=== PATIENT | female | born 1955 | race Caucasian/White ===

== ENCOUNTER 2016-08-12 02:42 | Emergency (ER) | payer MEDICAID ==
[~2016-08-12] VITALS: Ht 170.2 cm; Wt 86.2 kg
--- NOTE | 2016-08-12 04:27 | NUR ---
Patient discharged to home in stable conditon. Written and verbal after care instructions given. Patient verbalizes understanding of instructions. Walked out of ER with steady gait with no distress noted
[2016-08-12 04:44] VITALS: BP 155/90
== END 2016-08-12 04:45 | disposition home or self-care (01) ==
LOC: ER 02:45
DX: B88.9 Infestation, unspecified (principal); R21 Rash and other nonspecific skin eruption; E11.9 Type 2 diabetes mellitus without complications; F31.9 Bipolar disorder, unspecified; Z59.0 Homelessness; Z88.8 Allergy status to other drugs, medicaments and biological substances
CPT/HCPCS: 99282; A4663

== ENCOUNTER 2016-08-26 02:35 | Emergency (ER) | payer MEDICAID ==
[~2016-08-26] VITALS: Ht 167.6 cm; Wt 63.5 kg
[2016-08-26 03:14] LABS: *BILIRUBIN,URIN NEGATIVE (NEGATIVE); *BLOOD, URINE Trace-intact (NEGATIVE); *CLARITY,URINE CLEAR (CLEAR); *COLOR,URINE YELLOW (YELLOW); *KETONES,URINE NEGATIVE (NEGATIVE); *PROTEIN,URINE NEGATIVE (NEGATIVE); *UROBILINOGEN,URINE 0.2 E.U./dl (NORMAL); LEUKOCYTE ESTERASE ,URINE NEGATIVE (NEGATIVE); NITRITE, URINE NEGATIVE (NEGATIVE)
[2016-08-26 03:16] LABS: UGLUCOSE 3+ (NEGATIVE)
[2016-08-26 03:19] LABS: BACTERIA,URINE FEW /HPF (NONE SEEN); RBC,URINE 0-3 /HPF (0-3); SQUAMOUS EPITHELIAL CELL,UR FEW /HPF (NONE SEEN); WBC,URINE 0-3 /HPF (0-3)
--- NOTE | 2016-08-26 03:50 | NUR ---
Pt to room, pt c/o urinary frequency. Pt seen by . IV started, labs drawn and sent. Fluid bolus infusing freely to gravity. Pt resting in position of comfort for self. No obvious signs of distress at this time.
[2016-08-26] MEDS ORDERED: METFORMIN HCL 500 MG TABLET PO ONE (04:00)
[2016-08-26] MEDS ORDERED: IV NORMAL SALINE 1000 ML BAG IV ONE (04:00)
[2016-08-26] MEDS ORDERED: METFORMIN HCL 500 MG TABLET ONE (04:14)
[2016-08-26 04:22] LABS: BASOPHILS % (AUTO) 0.7 % (0.0-2.0); EOSINOPHILS # (AUTO) 0.2 K/uL (0.0-0.7); EOSINOPHILS % (AUTO) 3.7 % (0.0-7.0); HEMATOCRIT 44.4 % (37-47); HEMOGLOBIN 15.5 G/DL (12.0-16.0); LYMPHOCYTES # (AUTO) 1.8 K/UL (0.8-4.8); LYMPHOCYTES % (AUTO) 31.5 % (20.5-51.5); MEAN CORPUSCULAR HEMOGLOBIN 31.9 UUG (27.0-31.0); MEAN CORPUSCULAR HGB CONC 35 g/dL (32.0-37.0); MEAN CORPUSCULAR VOLUME 91.6 FL (81.0-99.0); MONOCYTES # (AUTO) 0.5 K/UL (0.1-1.30); MONOCYTES % (AUTO) 8.8 % (0.0-11.0); NEUTROPHILS # (AUTO) 3.2 K/UL (1.8-8.9); NEUTROPHILS % (AUTO) 55.3 % (38.5-71.5); PLATELET COUNT (AUTO) 195 K/UL (150-450); RED BLOOD CELL COUNT(AUTO) 4.85 MIL/UL (4.2-5.4); WHITE BLOOD COUNT (AUTO) 5.7 K/UL (4.0-11.2)
--- NOTE | 2016-08-26 04:30 | NUR ---
pt ambulated to br with steady gait. No complaints at this time. Fluid bolus cont infusing freely to gravity.
[2016-08-26 04:35] LABS: BILIRUBIN,DIRECT 0.1 mg/dL (0.0-0.2); BILIRUBIN,TOTAL 0.4 mg/dL (0.2-1.0); POTASSIUM 3.9 mmol/L (3.5-5.1); TOTAL PROTEIN, SERUM 7.7 g/dL (6.4-8.2)
--- NOTE | 2016-08-26 06:30 | NUR ---
Fluid bolus completed. Pt stable for discharge per MD. IV dc'd, catheter intact, drsg applied. No problems noted to site. Pt given ACI. Pt verbalized understanding of dc instructions. Pt ambulated out of er with steady gait.
[2016-08-26 07:15] VITALS: BP 158/88
== END 2016-08-26 06:30 | disposition home or self-care (01) ==
LOC: ER 02:38
DX: E11.9 Type 2 diabetes mellitus without complications (principal); F29 Unspecified psychosis not due to a substance or known physiological condition; F31.9 Bipolar disorder, unspecified; F10.20 Alcohol dependence, uncomplicated; Z59.0 Homelessness; Z88.8 Allergy status to other drugs, medicaments and biological substances
CPT/HCPCS: 36415; 80048; 80076; 81001; 82962 ×2; 85025; 96360; 96361; 99285; A4663; J7030 ×2

== ENCOUNTER 2017-01-20 03:17 | Emergency (ER) | payer MEDICAID ==
[~2017-01-20] VITALS: Ht 167.6 cm; Wt 81.6 kg
--- NOTE | 2017-01-20 03:30 | NUR ---
Patient walked into ER c/o right lower leg pain. Patient was seen at [facility] for same complaint several weeks ago
== END 2017-01-20 03:48 | disposition home or self-care (01) ==
LOC: ER 03:21
DX: M25.562 Pain in left knee (principal); Z59.0 Homelessness; W01.0XXA Fall on same level from slipping, tripping and stumbling without subsequent striking against object, initial encounter; Y93.89 Activity, other specified; Y92.9 Unspecified place or not applicable; Y99.9 Unspecified external cause status
CPT/HCPCS: A4663

== ENCOUNTER 2017-01-25 14:21 | Emergency (ER) | payer MEDICAID ==
[~2017-01-25] VITALS: Ht 162.6 cm; Wt 75.7 kg
--- NOTE | 2017-01-25 14:40 | NUR ---
Dr Díaz at the bedside for eval and exam.
[2017-01-25] MEDS ORDERED: IBUPROFEN 400 MG TABLET PO ONE (15:00)
[2017-01-25] MEDS ORDERED: ACETAMINOPHEN ES 500 MG TABLET PO ONE (15:00)
[2017-01-25] MEDS ORDERED: IBUPROFEN 400 MG TABLET ONE (15:06)
[2017-01-25] MEDS ORDERED: ACETAMINOPHEN ES 500 MG TABLET ONE (15:06)
[2017-01-25 15:55] VITALS: BP 155/80
--- NOTE | 2017-01-25 15:56 | NUR ---
Patient given written and verbal discharge instructions. Patient verbalizes understanding of instructions. Patient is ambulatory with steady gait. Refuses offer of alf placement. Patient given list of available shelters in surrounding area.
== END 2017-01-25 15:59 | disposition home or self-care (01) ==
LOC: ER 14:21
DX: M25.511 Pain in right shoulder (principal); F17.200 Nicotine dependence, unspecified, uncomplicated; E11.9 Type 2 diabetes mellitus without complications; Z59.0 Homelessness; Z88.8 Allergy status to other drugs, medicaments and biological substances
CPT/HCPCS: 73030; 73060; 99284; A4663

== ENCOUNTER 2017-02-16 02:56 | Emergency (ER) | payer MEDICAID ==
[~2017-02-16] VITALS: Ht 170.2 cm; Wt 81.6 kg
[2017-02-16] MEDS ORDERED: HYDROCODONE/APAP 5-325MG TABLET PO ONE (04:30)
[2017-02-16] MEDS ORDERED: HYDROCODONE/APAP 5-325MG TABLET ONE (04:37)
--- NOTE | 2017-02-16 04:55 | NUR ---
Radiology at bedside for US.
--- NOTE | 2017-02-16 05:28 | NUR ---
Patient discharged to home in stable conditon. Written and verbal after care instructions given. Patient verbalizes understanding of instructions.
== END 2017-02-16 05:30 | disposition home or self-care (01) ==
LOC: ER 02:58
DX: F29 Unspecified psychosis not due to a substance or known physiological condition (principal); M79.662 Pain in left lower leg; F32.9 Major depressive disorder, single episode, unspecified; F41.9 Anxiety disorder, unspecified; E11.9 Type 2 diabetes mellitus without complications; Z59.0 Homelessness; Z91.14 Patient's other noncompliance with medication regimen; F17.200 Nicotine dependence, unspecified, uncomplicated; Z88.8 Allergy status to other drugs, medicaments and biological substances
CPT/HCPCS: 93971; 99284; A4663

== ENCOUNTER 2017-03-01 16:08 | Emergency (ER) | payer MEDICAID ==
[~2017-03-01] VITALS: Ht 162.6 cm; Wt 68.0 kg
--- NOTE | 2017-03-01 16:33 | NUR ---
BIB "FRIEND". PT IS A 61 Y/O FEMALE. AMBULATORY WITH SLOW BUT STEADY GAIT. SPEAKING IN FULL SENTENCES. NAD NOTED. VSS. HERE FOR; RIGHT LOWER EXTREMITY PAIN S/P FALL X 1 MONTH AGO. PER "FRIEND" AT BEDSIDE. NO VISIAL DEFORMITY/DISCOLORATION ON THE RIGHT LOWER EXTREMIY/ SWELLING NOTED. WCTM PT AT THIS TIME. WAITING FOR MD TO PERFORM MSE.
[2017-03-01] MEDS ORDERED: HYDROCODONE/APAP 5-325MG TABLET PO ONE (18:00)
[2017-03-01] MEDS ORDERED: HYDROCODONE/APAP 5-325MG TABLET ONE (18:14)
--- NOTE | 2017-03-01 18:33 | NUR ---
Patient discharged to home in stable conditon. Written and verbal after care instructions given. Patient verbalizes understanding of instructions. Prescription provided per MD's order. No further question or concerns noted prior on leaving the ED. Pt accompanied by "friend" prior to d/c
[2017-03-01 18:34] VITALS: BP 119/88
== END 2017-03-01 18:35 | disposition home or self-care (01) ==
LOC: ER 16:11
DX: M17.0 Bilateral primary osteoarthritis of knee (principal); Z91.14 Patient's other noncompliance with medication regimen; E11.9 Type 2 diabetes mellitus without complications; F31.9 Bipolar disorder, unspecified; M85.80 Other specified disorders of bone density and structure, unspecified site; F41.9 Anxiety disorder, unspecified; Z59.0 Homelessness; F17.200 Nicotine dependence, unspecified, uncomplicated; Z88.8 Allergy status to other drugs, medicaments and biological substances
CPT/HCPCS: A4663

== ENCOUNTER 2017-03-07 02:32 | Emergency (ER) | payer MEDICAID ==
[~2017-03-07] VITALS: Ht 165.1 cm; Wt 77.1 kg
--- NOTE | 2017-03-07 03:04 | NUR ---
DR. CODY AT BEDSIDE FOR MSE.
[2017-03-07] MEDS ORDERED: IV NORMAL SALINE 1000 ML BAG IV ONE (03:15)
[2017-03-07 03:44] LABS: CREATININE 0.7 mg/dL (0.6-1.3); POTASSIUM 3.7 mmol/L (3.5-5.1)
--- NOTE | 2017-03-07 03:49 | NUR ---
Pt refusing IV. Dr Fowler notified.
[2017-03-07 03:57] LABS: BASOPHILS % (AUTO) 0.6 % (0.0-2.0); EOSINOPHILS # (AUTO) 0.2 K/uL (0.0-0.7); LYMPHOCYTES # (AUTO) 1.5 K/UL (0.8-4.8); MEAN CORPUSCULAR HEMOGLOBIN 29.9 UUG (27.0-31.0); MEAN CORPUSCULAR HGB CONC 33 g/dL (32.0-37.0); MEAN CORPUSCULAR VOLUME 89.8 FL (81.0-99.0); MONOCYTES # (AUTO) 0.5 K/UL (0.1-1.30); MONOCYTES % (AUTO) 9.1 % (0.0-11.0); NEUTROPHILS # (AUTO) 3.2 K/UL (1.8-8.9); NEUTROPHILS % (AUTO) 60.3 % (38.5-71.5); PLATELET COUNT (AUTO) 298 K/UL (150-450); RED BLOOD CELL COUNT(AUTO) 4.67 MIL/UL (4.2-5.4); WHITE BLOOD COUNT (AUTO) 5.4 K/UL (4.0-11.2)
[2017-03-07] MEDS ORDERED: IBUPROFEN 600 MG TABLET PO ONE (04:15)
--- NOTE | 2017-03-07 04:25 | NUR ---
Patient discharged to home in stable conditon. Written and verbal after care instructions given. Patient verbalizes understanding of instructions. PATIENT LEFT WITH STABLE GAIT.
[2017-03-07 04:26] VITALS: BP 145/98
== END 2017-03-07 04:27 | disposition home or self-care (01) ==
LOC: ER 02:36
DX: G89.29 Other chronic pain (principal); M79.604 Pain in right leg; M79.605 Pain in left leg; E11.65 Type 2 diabetes mellitus with hyperglycemia; Z59.0 Homelessness; Z91.14 Patient's other noncompliance with medication regimen; F17.200 Nicotine dependence, unspecified, uncomplicated
CPT/HCPCS: 36415; 80048; 82962; 85025; 99284; A4663; J7030

== ENCOUNTER 2017-03-13 07:19 | Emergency (ER) | payer MEDICAID ==
[~2017-03-13] VITALS: Ht 165.1 cm; Wt 77.1 kg
--- NOTE | 2017-03-13 07:27 | NUR ---
Attempted to triage pt, pt was not found in ER waiting room or outside ER.
--- NOTE | 2017-03-13 08:38 | NUR ---
patient was seen by MD for c/o generalized pain. Labs done. Urine sent to lab. patient refused CT scan, dr horne aware
[2017-03-13 08:57] LABS: *BILIRUBIN,URIN NEGATIVE (NEGATIVE); *BLOOD, URINE 2+ (NEGATIVE); *COLOR,URINE YELLOW (YELLOW); *KETONES,URINE TRACE (NEGATIVE); *PROTEIN,URINE NEGATIVE (NEGATIVE); *UROBILINOGEN,URINE 0.2 E.U./dl (NORMAL); BASOPHILS % (AUTO) 0.6 % (0.0-2.0); EOSINOPHILS # (AUTO) 0.2 K/uL (0.0-0.7); EOSINOPHILS % (AUTO) 2.5 % (0.0-7.0); HEMATOCRIT 43.5 % (31.2-41.9); LEUKOCYTE ESTERASE ,URINE TRACE (NEGATIVE); LYMPHOCYTES % (AUTO) 15.3 % (20.5-51.5); MEAN CORPUSCULAR HEMOGLOBIN 31.3 uug (24.7-32.8); MEAN CORPUSCULAR HGB CONC 35 g/dL (32.3-35.6); MEAN CORPUSCULAR VOLUME 90.4 fL (75.5-95.3); MONOCYTES # (AUTO) 0.4 K/uL (2.0-10.0); MONOCYTES % (AUTO) 6.4 % (0.0-11.0); NEUTROPHILS % (AUTO) 75.2 % (38.5-71.5); NITRITE, URINE NEGATIVE (NEGATIVE); PH,URINE 5.5 (5.0-8.0); PLATELET COUNT (AUTO) 255 K/uL (179-408); RED BLOOD CELL COUNT(AUTO) 4.81 MIL/uL (3.63-4.92); WHITE BLOOD COUNT (AUTO) 6.7 K/uL (3.8-11.8)
[2017-03-13 09:05] LABS: ALANINE AMINOTRANSFERASE 24 U/L (14-59); ALKALINE PHOSPHATASE 68 U/L (50-136); ASPARTATE AMINOTRANSFERASE 20 U/L (15-37); BILIRUBIN,DIRECT 0.2 mg/dL (0.0-0.2); BILIRUBIN,TOTAL 0.7 mg/dL (0.2-1.0); CARBON DIOXIDE 28 mmol/L (21-32); CHLORIDE 99 mmol/L (98-107); CREATININE 0.8 mg/dL (0.6-1.3); LIPASE 188 U/L (73-393); POTASSIUM 3.9 mmol/L (3.5-5.1); TOTAL PROTEIN, SERUM 8.2 g/dL (6.4-8.2); UREA NITROGEN, BLOOD 19 mg/dL (7-18)
[2017-03-13 09:06] LABS: ETHANOL < 3 MG/DL (0-0)
[2017-03-13 09:09] LABS: *AMPHETAMINE, URINE NEGATIVE (NEGATIVE); *BARBITURATE, URINE NEGATIVE (NEGATIVE); *CANNABINOID, URINE NEGATIVE (NEGATIVE); *COCCAINE, URINE NEGATIVE (NEGATIVE); *OPIATE, URINE NEGATIVE (NEGATIVE); *PHENCYCLIDINE SCREEN,URINE NEGATIVE (NEGATIVE)
[2017-03-13 09:19] LABS: UGLUCOSE 2+ (NEGATIVE)
[2017-03-13 09:21] LABS: BACTERIA,URINE MODERATE /HPF (NONE SEEN); MUCUS,URINE FEW /LPF (0-FEW); SQUAMOUS EPITHELIAL CELL,UR FEW /HPF (NONE SEEN)
[2017-03-13 09:22] LABS: *CLARITY,URINE CLOUDY (CLEAR)
[2017-03-13 09:27] LABS: GLUCOSE 340 mg/dL (74-106)
[2017-03-13 09:28] LABS: ACETAMINOPHEN < 2.0 ug/mL (10-30)
[2017-03-13] MEDS ORDERED: INSULIN REGULAR, HUMAN 1,000 UNITS/10 ML VIAL SUBCUT ONE (09:45)
--- NOTE | 2017-03-13 09:45 | NUR ---
Patient had some snacks and water.
[2017-03-13] MEDS ORDERED: INSULIN REGULAR, HUMAN 300 UNIT/3 ML VIAL ONE (10:00)
--- NOTE | 2017-03-13 10:29 | NUR ---
DC AND FOLLOW UP INSTRUCTIONS GIVEN AND EXPLAINED TO PATIENT WHO STATES SHE UNDERSTANDS ALL INSTRUCTIONS. PATIENT STATES SHE WILL "WALK HOME".
[2017-03-13 10:31] VITALS: BP 129/80
== END 2017-03-13 10:32 | disposition home or self-care (01) ==
LOC: ER 07:19
DX: R10.9 Unspecified abdominal pain (principal); E11.9 Type 2 diabetes mellitus without complications; Z59.0 Homelessness; F31.9 Bipolar disorder, unspecified; F41.9 Anxiety disorder, unspecified; F17.200 Nicotine dependence, unspecified, uncomplicated
CPT/HCPCS: 36415; 70030-TC; 80307; 83690; 85025; 85730; 93005; A4663; G0480; G0480-TC; J1815

== ENCOUNTER 2017-04-14 23:01 | Emergency (ER) | payer MEDICAID ==
[~2017-04-14] VITALS: Ht 172.7 cm; Wt 72.6 kg
[2017-04-15] MEDS ORDERED: KETOROLAC TROMETHAMINE 60 MG INJ IM ONE ×2 (02:30→02:43)
--- NOTE | 2017-04-15 03:13 | NUR ---
Patient discharged to home in stable conditon. Written and verbal after care instructions given. Patient verbalizes understanding of instructions.
== END 2017-04-15 03:14 | disposition home or self-care (01) ==
LOC: ER 23:07
DX: G89.29 Other chronic pain (principal); M25.511 Pain in right shoulder; M25.512 Pain in left shoulder; F17.200 Nicotine dependence, unspecified, uncomplicated; Z59.0 Homelessness; E11.9 Type 2 diabetes mellitus without complications; Z88.8 Allergy status to other drugs, medicaments and biological substances
CPT/HCPCS: 73020; A4663; J1885

== ENCOUNTER 2017-05-28 13:24 | Emergency (ER) | payer MEDICAID ==
[~2017-05-28] VITALS: Ht 167.6 cm; Wt 83.9 kg
[2017-05-28 13:59] LABS: *BLOOD, URINE Trace-intact (NEGATIVE); *CLARITY,URINE CLEAR (CLEAR); *COLOR,URINE YELLOW (YELLOW); *KETONES,URINE TRACE (NEGATIVE); *PROTEIN,URINE 2+ (NEGATIVE); *UROBILINOGEN,URINE 0.2 E.U./dl (NORMAL); LEUKOCYTE ESTERASE ,URINE 1+ (NEGATIVE); NITRITE, URINE NEGATIVE (NEGATIVE)
[2017-05-28 14:05] LABS: *BILIRUBIN,URIN 1+ (NEGATIVE); UGLUCOSE 2+ (NEGATIVE)
[2017-05-28 14:10] LABS: BACTERIA,URINE MODERATE /HPF (NONE SEEN); SQUAMOUS EPITHELIAL CELL,UR MODERATE /HPF (NONE SEEN)
--- NOTE | 2017-05-28 15:23 | NUR ---
MSE COMPLETED, PT D/C'D HOME, ACI/RX X1 GIVEN. PT AMBULATED W/O DIFF/TOOK ALL BELONGINGS.
[2017-05-28 15:25] VITALS: BP 110/64
== END 2017-05-28 15:26 | disposition home or self-care (01) ==
LOC: ER 13:24
DX: E11.9 Type 2 diabetes mellitus without complications (principal); F17.210 Nicotine dependence, cigarettes, uncomplicated; Z91.19 Patient's noncompliance with other medical treatment and regimen; Z59.0 Homelessness; Z88.8 Allergy status to other drugs, medicaments and biological substances
CPT/HCPCS: A4663

== ENCOUNTER 2017-07-02 23:51 | Emergency (ER) | payer MEDICAID ==
[~2017-07-02] VITALS: Ht 165.1 cm; Wt 72.6 kg
--- NOTE | 2017-07-03 | NUR ---
Patient ambulated to ER with steady gait, reports needs pain meds for pain on right wrists and bilateral lower ext.
--- NOTE | 2017-07-03 00:19 | NUR ---
Dr. Jefferson at bedside for MSE.
[2017-07-03] MEDS ORDERED: predniSONE 50 MG TABLET PO ONE (00:30)
[2017-07-03] MEDS ORDERED: methylPREDNISolone ACETATE 40 MG VIAL IM ONE (00:30)
[2017-07-03] MEDS ORDERED: HYDROCODONE/APAP 5-325MG TABLET PO ONE (00:30)
[2017-07-03] MEDS ORDERED: predniSONE 50 MG TABLET ONE (00:33)
[2017-07-03] MEDS ORDERED: HYDROCODONE/APAP 5-325MG TABLET ONE ×2 (00:34→00:49)
[2017-07-03] MEDS ORDERED: methylPREDNISolone ACETATE 40 MG VIAL ONE (00:35)
--- NOTE | 2017-07-03 01:04 | NUR ---
Patient given written and verbal discharge instructions. Patient verbalizes understanding of instructions. Patient is ambulatory with steady gait. Refuses offer of detention placement. Patient given list of available shelters in surrounding area.
[2017-07-03 01:08] VITALS: BP 156/99
== END 2017-07-03 01:08 | disposition home or self-care (01) ==
LOC: ER 23:56
DX: M17.0 Bilateral primary osteoarthritis of knee (principal); E11.9 Type 2 diabetes mellitus without complications; F17.210 Nicotine dependence, cigarettes, uncomplicated; Z88.8 Allergy status to other drugs, medicaments and biological substances; Z59.0 Homelessness
CPT/HCPCS: A4663; J1030; J7512

== ENCOUNTER 2017-08-06 21:03 | Emergency (ER) | payer MEDICAID, OTHER ==
[~2017-08-06] VITALS: Ht 165.1 cm; Wt 54.4 kg
--- NOTE | 2017-08-06 21:28 | NUR ---
DR ANTHONY MARTÍNEZ MD AT PT BEDSIDE FOR MSE. PT C/O CHRONIC GENERALIZED PAIN. PT HAS MULTIPLE VISITS TO THIS FACILITY FOR SIMILAR COMPLAINTS.
[2017-08-06] MEDS ORDERED: IBUPROFEN 800 MG TABLET PO ONE (21:30)
[2017-08-06] MEDS ORDERED: IBUPROFEN 800 MG TABLET ONE (21:33)
--- NOTE | 2017-08-06 21:35 | NUR ---
PT NOTED W/ MULTIPLE EPISODES OF CALLING OUT TO STAFF W/O NECESSITY OF STAFF ASSISTANCE.
--- NOTE | 2017-08-06 21:37 | NUR ---
XRAY AT BEDSIDE.
--- NOTE | 2017-08-06 21:54 | NUR ---
PT BACK FROM XRAY. NO ACUTE DISTRESS NOTED.
--- NOTE | 2017-08-06 21:55 | NUR ---
Patient discharged to home in stable conditon. Written and verbal after care instructions given. Patient verbalizes understanding of instructions. Pt ambulated out of ER in steady gait. VSS. No distress noted. All belongings with pt.
[2017-08-06 21:56] VITALS: BP 128/76
== END 2017-08-06 21:58 | disposition home or self-care (01) ==
LOC: ER 21:10
DX: M17.0 Bilateral primary osteoarthritis of knee (principal); E11.9 Type 2 diabetes mellitus without complications; Z59.0 Homelessness; F17.200 Nicotine dependence, unspecified, uncomplicated
CPT/HCPCS: 73565; A4663

== ENCOUNTER 2017-09-24 16:23 | Emergency (ER) | payer MEDICAID ==
[~2017-09-24] VITALS: Ht 170.2 cm; Wt 68.0 kg
[2017-09-24 17:07] LABS: *BILIRUBIN,URIN 1+ (NEGATIVE); *BLOOD, URINE Trace-intact (NEGATIVE); *COLOR,URINE YELLOW (YELLOW); *KETONES,URINE TRACE (NEGATIVE); *PROTEIN,URINE 1+ (NEGATIVE); LEUKOCYTE ESTERASE ,URINE 1+ (NEGATIVE); NITRITE, URINE NEGATIVE (NEGATIVE); PH,URINE 5.5 (5.0-8.0)
[2017-09-24 17:21] LABS: *CLARITY,URINE HAZY (CLEAR); UGLUCOSE 2+ (NEGATIVE)
[2017-09-24 17:23] LABS: MUCUS,URINE MODERATE /LPF (0-FEW); RBC,URINE 0-3 /HPF (0-3); SQUAMOUS EPITHELIAL CELL,UR MODERATE /HPF (NONE SEEN)
[2017-09-24] MEDS ORDERED: HYDROCODONE/APAP 5-325MG TABLET ONE (17:37)
--- NOTE | 2017-09-24 17:50 | NUR ---
MSE COMPLETED, PT D/C'D HOME, ACI/RX X1 GIVEN. PT AMBULATED W/O DIFF/TOOK ALL BELONGINGS.
[2017-09-24 17:52] VITALS: BP 128/64
== END 2017-09-24 17:52 | disposition home or self-care (01) ==
LOC: ER 16:24
DX: N39.0 Urinary tract infection, site not specified (principal); E11.9 Type 2 diabetes mellitus without complications; Z88.8 Allergy status to other drugs, medicaments and biological substances; Z59.0 Homelessness
CPT/HCPCS: 81001; 87077; 87086; 87186; 99284; A4663

== ENCOUNTER 2017-11-19 03:38 | Emergency (ER) | payer BC, MEDICAID ==
[~2017-11-19] VITALS: Ht 170.2 cm; Wt 65.8 kg
--- NOTE | 2017-11-19 04:27 | NUR ---
DR STEFANY MARTÍNEZ MD AT BEDSIDE FOR MSE.
[2017-11-19] MEDS: IBUPROFEN 600 MG TABLET PO ONE (04:57)
[2017-11-19] MEDS ORDERED: IBUPROFEN 600 MG TABLET ONE (04:59)
--- NOTE | 2017-11-19 05:23 | NUR ---
Patient discharged to home in stable conditon. Written and verbal after care instructions given. Patient verbalizes understanding of instructions. Pt ambulated from ER w/ steady gait. Pt took all personal belongings.
[2017-11-19 05:54] VITALS: BP 141/75
== END 2017-11-19 05:55 | disposition home or self-care (01) ==
LOC: ER 03:49
DX: M19.90 Unspecified osteoarthritis, unspecified site (principal); H26.9 Unspecified cataract; E11.9 Type 2 diabetes mellitus without complications; F17.200 Nicotine dependence, unspecified, uncomplicated; Z59.0 Homelessness; Z88.8 Allergy status to other drugs, medicaments and biological substances
CPT/HCPCS: A4663

== ENCOUNTER 2017-12-05 23:50 | Emergency (ER) | payer BC ==
[~2017-12-05] VITALS: Ht 172.7 cm; Wt 65.8 kg
[2017-12-06] MEDS ORDERED: ACETAMINOPHEN 325 MG TABLET ONE (00:39)
[2017-12-06] MEDS ORDERED: ACETAMINOPHEN 325 MG TABLET PO ONE (00:45)
--- NOTE | 2017-12-06 01:02 | NUR ---
Patient discharged to home in stable conditon. Written and verbal after care instructions given. Patient verbalizes understanding of instructions. Pt ambulated out of ER in steady gait. All belongings with pt. VSS. NAD noted.
[2017-12-06 01:03] VITALS: BP 110/69
== END 2017-12-06 01:04 | disposition home or self-care (01) ==
LOC: ER 23:52
DX: B86 Scabies (principal); M79.601 Pain in right arm; M79.602 Pain in left arm; M79.604 Pain in right leg; M79.605 Pain in left leg; E11.9 Type 2 diabetes mellitus without complications; Z88.8 Allergy status to other drugs, medicaments and biological substances; F17.200 Nicotine dependence, unspecified, uncomplicated; Z59.0 Homelessness
CPT/HCPCS: A4663

== ENCOUNTER 2017-12-09 13:46 | Emergency (ER) | payer BC ==
[~2017-12-09] VITALS: Ht 157.5 cm; Wt 56.7 kg
[2017-12-09 14:30] LABS: BASOPHILS # (AUTO) 0.1 K/uL (0.0-8.0); BASOPHILS % (AUTO) 1.3 % (0.0-2.0); EOSINOPHILS # (AUTO) 0.2 K/uL (0.0-0.7); EOSINOPHILS % (AUTO) 4.8 % (0.0-7.0); HEMATOCRIT 38.9 % (31.2-41.9); HEMOGLOBIN 12.9 g/dL (10.9-14.3); LYMPHOCYTES # (AUTO) 1.1 K/uL (20.0-40.0); MEAN CORPUSCULAR HEMOGLOBIN 27.6 uug (24.7-32.8); MEAN CORPUSCULAR HGB CONC 33 g/dL (32.3-35.6); MEAN CORPUSCULAR VOLUME 82.9 fL (75.5-95.3); MONOCYTES # (AUTO) 0.5 K/uL (2.0-10.0); MONOCYTES % (AUTO) 10.3 % (0.0-11.0); NEUTROPHILS # (AUTO) 3.2 K/uL (1.8-8.9); NEUTROPHILS % (AUTO) 62.6 % (38.5-71.5); PLATELET COUNT (AUTO) 356 K/uL (179-408); RED BLOOD CELL COUNT(AUTO) 4.69 MIL/uL (3.63-4.92); WHITE BLOOD COUNT (AUTO) 5.1 K/uL (3.8-11.8)
[2017-12-09 14:31] LABS: *BILIRUBIN,URIN 2+ (NEGATIVE); *BLOOD, URINE NEGATIVE (NEGATIVE); *CLARITY,URINE SLIGHTLY CLOUDY (CLEAR); *COLOR,URINE DARK YELLOW (YELLOW); *KETONES,URINE TRACE (NEGATIVE); *PROTEIN,URINE 2+ (NEGATIVE); LEUKOCYTE ESTERASE ,URINE TRACE (NEGATIVE); NITRITE, URINE NEGATIVE (NEGATIVE); UGLUCOSE NEGATIVE (NEGATIVE)
[2017-12-09 14:40] LABS: CREATININE 0.8 mg/dL (0.6-1.3); POTASSIUM 3.6 mmol/L (3.5-5.1)
[2017-12-09 14:46] LABS: BILIRUBIN,DIRECT 0.1 mg/dL (0.0-0.2); BILIRUBIN,TOTAL 0.6 mg/dL (0.2-1.0); TOTAL PROTEIN, SERUM 8.8 g/dL (6.4-8.2)
[2017-12-09] MEDS ORDERED: KETOROLAC TROMETHAMINE 30 MG INJ IM ONE (15:00)
[2017-12-09 15:02] LABS: BACTERIA,URINE MODERATE /HPF (NONE SEEN); SQUAMOUS EPITHELIAL CELL,UR MODERATE /HPF (NONE SEEN)
[2017-12-09 15:03] LABS: MUCUS,URINE MANY /LPF (0-FEW)
[2017-12-09] MEDS ORDERED: KETOROLAC TROMETHAMINE 30 MG INJ ONE (15:04)
--- NOTE | 2017-12-09 15:54 | NUR ---
PT WAS D/C TO HOME. D/C INSTRUCTIONS GIVEN TO THE PT.
[2017-12-09 15:55] VITALS: BP 132/66
== END 2017-12-09 15:56 | disposition home or self-care (01) ==
LOC: ER 13:46
DX: N39.0 Urinary tract infection, site not specified (principal); M79.1 Myalgia; E11.9 Type 2 diabetes mellitus without complications; F17.200 Nicotine dependence, unspecified, uncomplicated; Z88.8 Allergy status to other drugs, medicaments and biological substances; Z59.0 Homelessness
CPT/HCPCS: 36415; 80048; 80076; 81001; 83690; 85025; 99284; 99406; A4663; J1885

== ENCOUNTER 2017-12-23 23:59 | Emergency (ER) | payer BC ==
[~2017-12-23] VITALS: Ht 162.6 cm; Wt 61.2 kg
[2017-12-24 00:51] LABS: *BILIRUBIN,URIN NEGATIVE (NEGATIVE); *BLOOD, URINE NEGATIVE (NEGATIVE); *CLARITY,URINE CLOUDY (CLEAR); *COLOR,URINE YELLOW (YELLOW); *KETONES,URINE NEGATIVE (NEGATIVE); *PROTEIN,URINE NEGATIVE (NEGATIVE); *UROBILINOGEN,URINE 0.2 E.U./dl (NORMAL); LEUKOCYTE ESTERASE ,URINE 1+ (NEGATIVE); NITRITE, URINE NEGATIVE (NEGATIVE); PH,URINE 5.5 (5.0-8.0); UGLUCOSE NEGATIVE (NEGATIVE)
[2017-12-24 01:02] LABS: WBC,URINE 20-50 /HPF (0-3)
[2017-12-24 01:03] LABS: BACTERIA,URINE FEW /HPF (NONE SEEN); RBC,URINE 0-3 /HPF (0-3); SQUAMOUS EPITHELIAL CELL,UR MODERATE /HPF (NONE SEEN)
--- NOTE | 2017-12-24 01:23 | NUR ---
Patient discharged to home in stable conditon. Written and verbal after care instructions given. Patient verbalizes understanding of instructions. WALKED OUT OF ER WITH NO DISTRESS NOTED
[2017-12-24 01:24] VITALS: BP 159/82
== END 2017-12-24 01:25 | disposition home or self-care (01) ==
LOC: ER 12-24 00:02
DX: N39.0 Urinary tract infection, site not specified (principal); M79.10 Myalgia, unspecified site; H53.8 Other visual disturbances; E11.9 Type 2 diabetes mellitus without complications; Z59.0 Homelessness; Z88.8 Allergy status to other drugs, medicaments and biological substances; F17.200 Nicotine dependence, unspecified, uncomplicated
CPT/HCPCS: 81001; 82962; 87077; 87086; 87186; 99284; 99406; A4663

== ENCOUNTER 2017-12-29 09:59 | Emergency (ER) | payer BC ==
[~2017-12-29] VITALS: Ht 162.6 cm; Wt 68.0 kg
[2017-12-29] MEDS ORDERED: ONDANSETRON 4 MG/2 ML VIAL ONE (10:11)
[2017-12-29] MEDS ORDERED: HYDROMORPHONE 1 MG/1 ML DISP.SYRIN ONE (10:11)
[2017-12-29] MEDS ORDERED: ONDANSETRON 4 MG/2 ML VIAL IM ONE (10:15)
[2017-12-29] MEDS ORDERED: HYDROMORPHONE 1 MG/1 ML DISP.SYRIN IM ONE (10:15)
[2017-12-29 10:37] VITALS: BP 139/76
== END 2017-12-29 10:40 | disposition home or self-care (01) ==
LOC: ER 09:59
DX: R60.9 Edema, unspecified (principal); E11.9 Type 2 diabetes mellitus without complications; F17.200 Nicotine dependence, unspecified, uncomplicated; Z88.8 Allergy status to other drugs, medicaments and biological substances; Z59.0 Homelessness
CPT/HCPCS: A4663; J1170; J2405

== ENCOUNTER 2017-12-29 13:24 | Emergency (ER) | payer BC ==
[~2017-12-29] VITALS: Ht 162.6 cm; Wt 68.0 kg
[2017-12-29] MEDS: CITALOPRAM 20 MG TABLET PO SCH ×3 (14:13→18:54)
[2017-12-29] MEDS ORDERED: CITALOPRAM 10 MG TABLET ONE (14:14)
[2017-12-29] MEDS ORDERED: IV NORMAL SALINE 1000 ML BAG IV ONE (14:30)
[2017-12-29] MEDS ORDERED: ACETAMINOPHEN ES 500 MG TABLET PO ONE (19:00)
[2017-12-29] MEDS ORDERED: ACETAMINOPHEN ES 500 MG TABLET ONE (19:09)
[2017-12-29 19:18] LABS: BASOPHILS # (AUTO) 0.1 K/uL (0.0-8.0); BASOPHILS % (AUTO) 1.1 % (0.0-2.0); EOSINOPHILS # (AUTO) 0.1 K/uL (0.0-0.7); EOSINOPHILS % (AUTO) 1.6 % (0.0-7.0); HEMATOCRIT 31.9 % (31.2-41.9); HEMOGLOBIN 10.7 g/dL (10.9-14.3); LYMPHOCYTES % (AUTO) 17.5 % (20.5-51.5); MEAN CORPUSCULAR HGB CONC 34 g/dL (32.3-35.6); MEAN CORPUSCULAR VOLUME 83.1 fL (75.5-95.3); MONOCYTES # (AUTO) 0.5 K/uL (2.0-10.0); NEUTROPHILS # (AUTO) 4.2 K/uL (1.8-8.9); NEUTROPHILS % (AUTO) 71.8 % (38.5-71.5); PLATELET COUNT (AUTO) 268 K/uL (179-408); RED BLOOD CELL COUNT(AUTO) 3.84 MIL/uL (3.63-4.92); WHITE BLOOD COUNT (AUTO) 5.9 K/uL (3.8-11.8)
[2017-12-29 19:37] LABS: BILIRUBIN,DIRECT 0.2 mg/dL (0.0-0.2); BILIRUBIN,TOTAL 0.8 mg/dL (0.2-1.0); CREATININE 0.6 mg/dL (0.6-1.3); POTASSIUM 3.6 mmol/L (3.5-5.1); TOTAL PROTEIN, SERUM 7.3 g/dL (6.4-8.2)
== END 2017-12-29 21:47 | disposition short-term general hospital (02) ==
LOC: ER 13:24
DX: G89.29 Other chronic pain (principal); M79.604 Pain in right leg; M79.605 Pain in left leg; E11.9 Type 2 diabetes mellitus without complications; F17.200 Nicotine dependence, unspecified, uncomplicated; Z88.8 Allergy status to other drugs, medicaments and biological substances; Z59.0 Homelessness
CPT/HCPCS: 36415; 70030-TC; 71045; 83605; 85025; 85730; 87040; 87400; 93005; A4663; A9150; J7030

== ENCOUNTER 2018-01-16 06:49 | Emergency (ER) | payer BC ==
[~2018-01-16] VITALS: Ht 165.1 cm; Wt 68.0 kg
--- NOTE | 2018-01-16 07:10 | NUR ---
Attempted to triage pt, pt was not found in ER waiting room.
--- NOTE | 2018-01-16 07:15 | NUR ---
Pt ambulated to room 3.
--- NOTE | 2018-01-16 07:33 | NUR ---
2 nurses assisted the patient to undress, no visible injuries seen@neck and back. Patient c/o chronic pains to neck & back area, denies recent trauma to affected sites, NAD. Patient was seen comfortably sleeping on gurney before I assisted her to undress.
--- NOTE | 2018-01-16 08:33 | NUR ---
Patient is resting comfortably on gurney with eyes closed, NAD.
--- NOTE | 2018-01-16 08:55 | NUR ---
Patient was seen walking to bathroom with slow steady gait, pending results and disposition
--- NOTE | 2018-01-16 10:47 | NUR ---
Patient is stable to be discharged to home per MD. Written and verbal after care instructions given to patient. Patient verbalizes understanding of instructions. Patient requested to stay in the ER department for an hour more to sleep & rest. MD and charge rn Travis notified.
--- NOTE | 2018-01-16 11:20 | NUR ---
Pt ambulated out of ER with steady gait.
== END 2018-01-16 11:24 | disposition home or self-care (01) ==
LOC: ER 06:51
DX: M19.90 Unspecified osteoarthritis, unspecified site (principal); E11.9 Type 2 diabetes mellitus without complications; F17.200 Nicotine dependence, unspecified, uncomplicated; Z88.8 Allergy status to other drugs, medicaments and biological substances; Z59.0 Homelessness
CPT/HCPCS: 71045; 72125; A4663

== ENCOUNTER 2018-01-19 21:58 | Emergency (ER) | payer BC ==
[~2018-01-19] VITALS: Ht 152.4 cm; Wt 56.7 kg
[2018-01-19 23:53] VITALS: BP 122/84
--- NOTE | 2018-01-19 23:53 | NUR ---
Patient discharged to home in stable conditon. Written and verbal after care instructions given. Patient verbalizes understanding of instructions.
[2018-01-20 06:25] LABS: *BILIRUBIN,URIN NEGATIVE (NEGATIVE); *BLOOD, URINE NEGATIVE (NEGATIVE); *CLARITY,URINE CLEAR (CLEAR); *COLOR,URINE YELLOW (YELLOW); *KETONES,URINE NEGATIVE (NEGATIVE); *PROTEIN,URINE NEGATIVE (NEGATIVE); *UROBILINOGEN,URINE 0.2 E.U./dl (NORMAL); LEUKOCYTE ESTERASE ,URINE NEGATIVE (NEGATIVE); NITRITE, URINE NEGATIVE (NEGATIVE); PH,URINE 5.5 (5.0-8.0); UGLUCOSE NEGATIVE (NEGATIVE)
[2018-01-20 06:31] LABS: BACTERIA,URINE NONE SEEN /HPF (NONE SEEN); RBC,URINE NONE SEEN /HPF (0-3); SQUAMOUS EPITHELIAL CELL,UR NONE SEEN /HPF (NONE SEEN); WBC,URINE 0-3 /HPF (0-3)
[2018-01-20 06:32] LABS: CALCIUM OXALATE CRYSTALS,UR FEW /HPF (NONE SEEN)
== END 2018-01-19 23:55 | disposition home or self-care (01) ==
LOC: ER 21:58
DX: M25.571 Pain in right ankle and joints of right foot (principal); M25.572 Pain in left ankle and joints of left foot; E11.9 Type 2 diabetes mellitus without complications; F17.200 Nicotine dependence, unspecified, uncomplicated; Z59.0 Homelessness; Z88.8 Allergy status to other drugs, medicaments and biological substances
CPT/HCPCS: A4663

== ENCOUNTER 2018-01-25 21:33 | Emergency (ER) | payer BC ==
[~2018-01-25] VITALS: Ht 165.1 cm; Wt 65.8 kg
--- NOTE | 2018-01-26 01:41 | NUR ---
PT A/OX4, RESPONSIVE TO VERBAL AND TACTILE STIMULI. PT C/O CHRONIC BILATERAL SHOULDER AND BLE PAIN 8/10, PROVOKED UPON MOVEMENT, SHARP IN QUALITY, DOES NOT RADIATE, 8/10, CONSTANT. NO EDEMA/REDNESS NOTED. PT DENIES C/P, SOB, N/V/D, DIZZINESS, HEADACHE. ER MD AT BEDSIDE.
--- NOTE | 2018-01-26 06:08 | NUR ---
Patient discharged to home in stable conditon. Written and verbal after care instructions given. Patient verbalizes understanding of instructions. PT SELF-AMBULATED WITHOUT DIFFICULTY. ALL BELONGINGS W/ PT.
[2018-01-26 06:09] VITALS: BP 146/72
== END 2018-01-26 06:11 | disposition home or self-care (01) ==
LOC: ER 21:34
DX: R60.9 Edema, unspecified (principal); M25.571 Pain in right ankle and joints of right foot; M25.572 Pain in left ankle and joints of left foot; E11.9 Type 2 diabetes mellitus without complications; F17.200 Nicotine dependence, unspecified, uncomplicated; Z59.0 Homelessness; Z88.8 Allergy status to other drugs, medicaments and biological substances
CPT/HCPCS: A4663

== ENCOUNTER 2018-02-15 01:20 | Emergency (ER) | payer BC ==
[~2018-02-15] VITALS: Ht 170.2 cm; Wt 63.5 kg
--- NOTE | 2018-02-15 01:30 | NUR ---
RECEIVED PATIENT IN ROOM WITH MULTIPLE C/O JOINT PAIN, BEEN TAKING IBUPROFEN BUT PAIN IS WORST TODAY, ALSO CLAIMED THAT SHE HAS NO WHERE TO GO, NEED PLACEMENT, ER DR AT BEDSIDE, STATUS DISCUSSED WITH PATIENT, WILL CLEAR HER MEDICALLY AND WAIT FOR SW TO PLACE PATIENT IN AM.
[2018-02-15] MEDS ORDERED: IBUPROFEN 600 MG TABLET PO ONE (01:45)
[2018-02-15] MEDS ORDERED: IBUPROFEN 600 MG TABLET ONE (01:59)
--- NOTE | 2018-02-15 02:02 | NUR ---
MEDICATED FOR PAIN
[2018-02-15 02:04] LABS: BASOPHILS # (AUTO) 0.1 K/uL (0.0-8.0); BASOPHILS % (AUTO) 1.1 % (0.0-2.0); EOSINOPHILS # (AUTO) 0.4 K/uL (0.0-0.7); EOSINOPHILS % (AUTO) 7.2 % (0.0-7.0); HEMATOCRIT 33.3 % (31.2-41.9); HEMOGLOBIN 11.3 g/dL (10.9-14.3); LYMPHOCYTES # (AUTO) 1.3 K/uL (20.0-40.0); LYMPHOCYTES % (AUTO) 22.3 % (20.5-51.5); MEAN CORPUSCULAR HEMOGLOBIN 28.2 uug (24.7-32.8); MEAN CORPUSCULAR HGB CONC 34 g/dL (32.3-35.6); MEAN CORPUSCULAR VOLUME 83.2 fL (75.5-95.3); MONOCYTES # (AUTO) 0.5 K/uL (2.0-10.0); MONOCYTES % (AUTO) 8.4 % (0.0-11.0); NEUTROPHILS # (AUTO) 3.7 K/uL (1.8-8.9); PLATELET COUNT (AUTO) 247 K/uL (179-408)
[2018-02-15 02:18] LABS: ALANINE AMINOTRANSFERASE 14 U/L (14-59); ALKALINE PHOSPHATASE 60 U/L (50-136); ASPARTATE AMINOTRANSFERASE 17 U/L (15-37); BILIRUBIN,DIRECT 0.1 mg/dL (0.0-0.2); BILIRUBIN,TOTAL 0.4 mg/dL (0.2-1.0); CARBON DIOXIDE 30 mmol/L (21-32); CHLORIDE 102 mmol/L (98-107); CREATININE 0.6 mg/dL (0.6-1.3); GLUCOSE 116 mg/dL (74-106); POTASSIUM 3.6 mmol/L (3.5-5.1); TOTAL PROTEIN, SERUM 7.6 g/dL (6.4-8.2); UREA NITROGEN, BLOOD 18 mg/dL (7-18)
[2018-02-15 02:21] LABS: ACETAMINOPHEN < 2.0 ug/mL (10-30)
[2018-02-15 02:26] LABS: THYROID STIMULATING HORMONE 2.595 mIU/mL (0.358-3.740)
[2018-02-15 02:44] LABS: ETHANOL < 3 MG/DL (0-0)
--- NOTE | 2018-02-15 03:25 | NUR ---
Marisol Montemayor at bedside for psych eval.
--- NOTE | 2018-02-15 04:05 | NUR ---
EVALUATED BY CRISIS TEAM, NOT A CANDIDATE AT THIS TIME, WELDING ENGINEER WILL FOLLOW-UP FURTHER IN AM FOR PLACEMENT.
[2018-02-15] MEDS ORDERED: HYDROMORPHONE 1 MG/1 ML DISP.SYRIN ONE (04:15)
[2018-02-15] MEDS ORDERED: HYDROMORPHONE 1 MG/1 ML DISP.SYRIN IM ONE (04:15)
--- NOTE | 2018-02-15 04:16 | NUR ---
MEDICATED FOR PAIN.
--- NOTE | 2018-02-15 07:10 | NUR ---
REPORT GIVEN TO ONCOMING RN
[2018-02-15 08:31] VITALS: BP 158/82
--- NOTE | 2018-02-15 08:33 | NUR ---
As per Md. patient clear to go home. Resource list given to patient and educated to call and follow for needed treatment. pt. left room ambulatory, AAOX4. vitals signs stable.
[2018-02-15 11:33] LABS: *BILIRUBIN,URIN NEGATIVE (NEGATIVE); *BLOOD, URINE NEGATIVE (NEGATIVE); *CLARITY,URINE CLEAR (CLEAR); *COLOR,URINE YELLOW (YELLOW); *KETONES,URINE NEGATIVE (NEGATIVE); *PROTEIN,URINE NEGATIVE (NEGATIVE); *UROBILINOGEN,URINE 0.2 E.U./dl (NORMAL); LEUKOCYTE ESTERASE ,URINE NEGATIVE (NEGATIVE); NITRITE, URINE NEGATIVE (NEGATIVE); UGLUCOSE NEGATIVE (NEGATIVE)
[2018-02-15 11:45] LABS: *AMPHETAMINE, URINE NEGATIVE (NEGATIVE); *BARBITURATE, URINE NEGATIVE (NEGATIVE); *CANNABINOID, URINE NEGATIVE (NEGATIVE); *COCCAINE, URINE NEGATIVE (NEGATIVE); *OPIATE, URINE NEGATIVE (NEGATIVE); *PHENCYCLIDINE SCREEN,URINE NEGATIVE (NEGATIVE)
[2018-02-15 12:18] LABS: BACTERIA,URINE FEW /HPF (NONE SEEN); CALCIUM OXALATE CRYSTALS,UR RARE /HPF (NONE SEEN); MUCUS,URINE FEW /LPF (0-FEW); RBC,URINE 0-3 /HPF (0-3); SQUAMOUS EPITHELIAL CELL,UR FEW /HPF (NONE SEEN); WBC,URINE 0-3 /HPF (0-3)
== END 2018-02-15 08:34 | disposition home or self-care (01) ==
LOC: ER 01:22
DX: F32.9 Major depressive disorder, single episode, unspecified (principal); I10 Essential (primary) hypertension; E11.9 Type 2 diabetes mellitus without complications; F17.200 Nicotine dependence, unspecified, uncomplicated; Z59.0 Homelessness; Z88.8 Allergy status to other drugs, medicaments and biological substances
CPT/HCPCS: 36415; 71045; 80048; 80076; 80307; 81001; 84443; 85025; 93005; 96372; 99284; G0480 ×2; G0481; J1170; A4663

== ENCOUNTER 2018-02-19 23:35 | Emergency (ER) | payer BC ==
[~2018-02-19] VITALS: Ht 165.1 cm; Wt 59.0 kg
--- NOTE | 2018-02-20 00:05 | NUR ---
Pt. ambulated into ED w/ cane, A/Ox4, w/ c/o posterior head/neck/back pain 10/30, denies SOB/CP/N/V,
--- NOTE | 2018-02-20 00:28 | NUR ---
PT TAKEN TO RADIOLOGY FOR CT SCAN.
--- NOTE | 2018-02-20 00:47 | NUR ---
PT BACK IN DEPARTMENT FROM CT SCAN.
[2018-02-20] MEDS ORDERED: KETOROLAC TROMETHAMINE 30 MG INJ ONE (02:27)
[2018-02-20] MEDS ORDERED: KETOROLAC TROMETHAMINE 30 MG INJ IM ONE (02:30)
--- NOTE | 2018-02-20 02:35 | NUR ---
Patient discharged to home in stable conditon. Written and verbal after care instructions given. Patient verbalizes understanding of instructions. Pt. d/c w/ prescription per MD order, all pt. belongings taken, no acute distresss,
== END 2018-02-20 02:39 | disposition home or self-care (01) ==
LOC: ER 23:37
DX: G89.29 Other chronic pain (principal); M54.5 Low back pain; I10 Essential (primary) hypertension; E11.9 Type 2 diabetes mellitus without complications; F17.290 Nicotine dependence, other tobacco product, uncomplicated; Z88.8 Allergy status to other drugs, medicaments and biological substances; Z59.0 Homelessness
CPT/HCPCS: 74150; A4663; J1885

== ENCOUNTER 2018-03-10 10:42 | Emergency (ER) | payer BC ==
[~2018-03-10] VITALS: Ht 165.1 cm; Wt 65.8 kg
[2018-03-10] MEDS: diphenhydrAMINE 50 MG CAPSULE PO ONE (10:57)
[2018-03-10] MEDS: HYDROCODONE/APAP 10-325 MG TABLET PO ONE (10:57)
[2018-03-10] MEDS ORDERED: diphenhydrAMINE 50 MG CAPSULE ONE (10:58)
[2018-03-10] MEDS ORDERED: HYDROCODONE/APAP 10-325 MG TABLET ONE (10:58)
[2018-03-10] MEDS ORDERED: NAPROXEN 500 MG TABLET ONE (11:06)
--- NOTE | 2018-03-10 11:10 | NUR ---
Patient discharged to home in stable conditon. Written and verbal after care instructions given. Patient verbalizes understanding of instructions.pt walks in steady gait. apple juice provided for pt per request.
[2018-03-10] MEDS ORDERED: NAPROXEN 500 MG TABLET PO ONE (11:15)
== END 2018-03-10 11:16 | disposition home or self-care (01) ==
LOC: ER 10:42
DX: R60.9 Edema, unspecified (principal); G89.4 Chronic pain syndrome; L29.9 Pruritus, unspecified; M79.673 Pain in unspecified foot; I10 Essential (primary) hypertension; E11.9 Type 2 diabetes mellitus without complications; F17.200 Nicotine dependence, unspecified, uncomplicated; Z88.8 Allergy status to other drugs, medicaments and biological substances; Z59.0 Homelessness
CPT/HCPCS: 99283; Q0163; A4663

== ENCOUNTER 2018-03-17 22:11 | Emergency (ER) | END 2018-03-17 23:16 | disposition home or self-care (01) | DX: E11.9 Type 2 diabetes mellitus without complications (principal); Z76.0 Encounter for issue of repeat prescription; Z88.8 Allergy status to other drugs, medicaments and biological substances; Z59.0 Homelessness ==

== ENCOUNTER 2018-03-21 06:21 | Emergency (ER) | payer BC ==
[~2018-03-21] VITALS: Ht 167.6 cm; Wt 70.3 kg
--- NOTE | 2018-03-21 06:53 | NUR ---
Patient given written and verbal discharge instructions. Patient verbalizes understanding of instructions. Patient is ambulatory with steady gait. Refuses offer of intermediate placement. Patient given list of available shelters in surrounding area.
== END 2018-03-21 06:55 | disposition home or self-care (01) ==
LOC: ER 06:25
DX: E11.9 Type 2 diabetes mellitus without complications (principal); Z76.0 Encounter for issue of repeat prescription; Z88.8 Allergy status to other drugs, medicaments and biological substances; Z59.0 Homelessness
CPT/HCPCS: A4663

== ENCOUNTER 2018-03-30 23:57 | Emergency (ER) | payer BC ==
[~2018-03-30] VITALS: Ht 165.1 cm; Wt 68.0 kg
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
--- NOTE | 2018-03-31 03:05 | NUR ---
PT IS A/OX4, PRESENTS TO THE ER C/O FLU-LIKE SYMPTOMS X 2 DAYS. PT IS AFEBRILE, VSS. PT DENIES PAIN, C/P, SOB, N/V/D, DIZZINESS, HEADACHE.
--- NOTE | 2018-03-31 03:13 | NUR ---
Nancy knig in EDM - 03/31/18 at 0319 by [email or web address] Patient discharged to home in stable conditon. Written and verbal after care instructions given. Patient verbalizes understanding of instructions. Walked out of ER with no distress noted
[2018-03-31] MEDS ORDERED: DEXAMETHASONE SOD PHOSPHATE 10 MG INJ ONE (04:00)
[2018-03-31] MEDS ORDERED: DEXAMETHASONE SOD PHOSPHATE 4 MG INJ IV ONE (04:15)
[2018-03-31] MEDS ORDERED: DEXAMETHASONE SOD PHOSPHATE 4 MG INJ IM ONE (04:15)
[2018-03-31 04:32] VITALS: BP 142/80
--- NOTE | 2018-03-31 04:32 | NUR ---
Patient discharged to home in stable conditon. Written and verbal after care instructions given. Patient verbalizes understanding of instructions. PT D/C W/ PRESCRIPTIONS. ALL BELONGINGS W/ PT. PT SELF-AMBULATED W/O DIFFICULTY.
--- NOTE | 2018-03-31 04:33 | NUR ---
FOOD AND WATER OFFERED TO PT. PT STATES SHE WILL RETURN TO HER PREVIOUS LIVING ARRANGEMENT - STREET.
== END 2018-03-31 04:34 | disposition home or self-care (01) ==
LOC: ER 23:58
DX: B34.9 Viral infection, unspecified (principal); Z88.8 Allergy status to other drugs, medicaments and biological substances; Z59.0 Homelessness
CPT/HCPCS: 96372; 99283; J1100; A4663

== ENCOUNTER 2018-12-30 22:55 | Emergency (ER) | payer BC ==
[~2018-12-30] VITALS: Ht 162.6 cm; Wt 72.6 kg
--- NOTE | 2018-12-30 23:38 | NUR ---
PT RECEIVED AMBULATORY PT IS HOMELESS PT REFUSED COMMUNITY RESOURCES, REFUSED TO SIGN WAIVER FORM COSIGNED BY ROLL OR TAPE EDGE MACHINE OPERATOR
--- NOTE | 2018-12-30 23:39 | NUR ---
ERMD AT BEDSIDE FOR HX AND PHYSICAL C/O SKIN RASH ON LEFT BUTTOCK
--- NOTE | 2018-12-30 23:58 | NUR ---
Patient discharged to home in stable conditon. Written and verbal after care instructions given. Patient verbalizes understanding of instructions. PT AMBULATORY W/ STABLE GAIT ALL BELONGINGS W/ PT
[2018-12-31] VITALS: BP 144/76
== END 2018-12-31 00:04 | disposition home or self-care (01) ==
LOC: ER 22:57
DX: L02.31 Cutaneous abscess of buttock (principal); F41.9 Anxiety disorder, unspecified; Z88.8 Allergy status to other drugs, medicaments and biological substances; Z59.0 Homelessness
CPT/HCPCS: A4663

== ENCOUNTER 2019-01-07 03:32 | Emergency (ER) | payer BC ==
[~2019-01-07] VITALS: Ht 167.6 cm; Wt 77.1 kg
--- NOTE | 2019-01-07 04:21 | NUR ---
FOOD AND WATER PROVIDED, OK PER DR. CAN.
--- NOTE | 2019-01-07 04:30 | NUR ---
PATIENT DID NOT EAT OR DRINK ANYTHING AT THIS TIME, ASLEEP IN GURNEY, RESPIRATIONS EVEN AND UNLABORED. WILL MONITOR.
[2019-01-07] MEDS ORDERED: PANTOPRAZOLE SODIUM 40 MG TABLET.DR PO ONE ×2 (05:15→05:27)
[2019-01-07] MEDS ORDERED: ONDANSETRON ODT 4 MG TAB.RAPDIS SL ONE (05:15)
[2019-01-07] MEDS ORDERED: ACETAMINOPHEN ES 500 MG TABLET PO ONE (05:15)
[2019-01-07] MEDS ORDERED: ONDANSETRON ODT 4 MG TAB.RAPDIS ONE (05:27)
[2019-01-07] MEDS ORDERED: ACETAMINOPHEN ES 500 MG TABLET ONE (05:27)
--- NOTE | 2019-01-07 07:28 | NUR ---
PATIENT IS SLEEPING COMFORTABLY
--- NOTE | 2019-01-07 08:56 | NUR ---
PATIENT STATES PAIN HAS DIMINISHED. DENIES NAUSEA.
--- NOTE | 2019-01-07 08:57 | NUR ---
PATIENT IS AWAKE AND ALERT. SHE AMBULATED TO BATHROOM WITH STEADY GAIT.
--- NOTE | 2019-01-07 09:04 | NUR ---
DC, RX AND FOLLOW UP INSTRUCTIONS GIVEN AND EXPLAINED TO PATIENT WHO STATES SHE UNDERSTANDS ALL INSTRUCTIONS.
== END 2019-01-07 09:06 | disposition home or self-care (01) ==
LOC: ER 03:41
DX: M54.9 Dorsalgia, unspecified (principal); R11.2 Nausea with vomiting, unspecified; F41.9 Anxiety disorder, unspecified; Z88.8 Allergy status to other drugs, medicaments and biological substances; Z59.0 Homelessness
CPT/HCPCS: 71045; 93005; A4663; A9150; Q0162

== ENCOUNTER 2019-01-11 21:18 | Emergency (ER) | payer BC ==
[~2019-01-11] VITALS: Ht 170.2 cm; Wt 84.4 kg
--- NOTE | 2019-01-11 21:50 | NUR ---
PT STATES: "I AM HOMELESS AND I HAVE NOWHERE ELSE TO GO TONIGHT" PT SIGNED HOMELESS FORM RN CONFIRMED HOMELESS INTERVENTION CHECKLIST
--- NOTE | 2019-01-11 21:51 | NUR ---
MD AT BEDSIDE FOR HX AND PHYSICAL
--- NOTE | 2019-01-11 22:02 | NUR ---
TOOTIE TECH AT BEDSIDE
--- NOTE | 2019-01-11 22:04 | NUR ---
BAKERY AND DELI SALES MANAGER AT BEDSIDE
[2019-01-11 22:11] LABS: BASOPHILS % (AUTO) 0.8 % (0.0-2.0); EOSINOPHILS # (AUTO) 0.3 K/uL (0.0-0.7); EOSINOPHILS % (AUTO) 5.6 % (0.0-7.0); HEMATOCRIT 36.1 % (31.2-41.9); HEMOGLOBIN 11.7 g/dL (10.9-14.3); LYMPHOCYTES # (AUTO) 1.5 K/uL (20.0-40.0); LYMPHOCYTES % (AUTO) 29.2 % (20.5-51.5); MEAN CORPUSCULAR HGB CONC 33 g/dL (32.3-35.6); MEAN CORPUSCULAR VOLUME 89.3 fL (75.5-95.3); MONOCYTES # (AUTO) 0.5 K/uL (2.0-10.0); MONOCYTES % (AUTO) 9.6 % (0.0-11.0); NEUTROPHILS # (AUTO) 2.8 K/uL (1.8-8.9); NEUTROPHILS % (AUTO) 54.8 % (38.5-71.5); PLATELET COUNT (AUTO) 241 K/uL (179-408); RED BLOOD CELL COUNT(AUTO) 4.04 MIL/uL (3.63-4.92); WHITE BLOOD COUNT (AUTO) 5.2 K/uL (3.8-11.8)
[2019-01-11 22:18] LABS: CREATININE 0.9 mg/dL (0.6-1.3); POTASSIUM 3.9 mmol/L (3.5-5.1)
[2019-01-11 22:31] LABS: BILIRUBIN,DIRECT 0.1 mg/dL (0.0-0.2); BILIRUBIN,TOTAL 0.3 mg/dL (0.2-1.0); TOTAL PROTEIN, SERUM 7.4 g/dL (6.4-8.2)
--- NOTE | 2019-01-12 01:23 | NUR ---
PT ASLEEP, NAD, EASILY ROUSED. ON SEMI MCKINLEY'S MONITORED ACCORDINGLY NO APPARENT DISTRESS SIDERAILSX2 UP BED AT LOWEST POSITION
--- NOTE | 2019-01-12 02:47 | NUR ---
PT ASLEEP, NAD, EASILY ROUSED. ON SEMI MCKINLEY'S MONITORED ACCORDINGLY NO APPARENT DISTRESS SIDERAILSX2 UP BED AT LOWEST POSITION
--- NOTE | 2019-01-12 04:10 | NUR ---
PT ASLEEP, NAD, EASILY ROUSED. ON SEMI MCKINLEY'S MONITORED ACCORDINGLY NO APPARENT DISTRESS SIDERAILSX2 UP BED AT LOWEST POSITION
--- NOTE | 2019-01-12 04:18 | NUR ---
PT STATES SHE IS WILLING TO WAIT FOR TOOLROOM CLERK COMING IN FOR DAY SHIFT PT IS NAD, DENIES PAIN KEPT WARM DRY AND COMFORTABLE
--- NOTE | 2019-01-12 06:32 | NUR ---
PT AWAKE, AMBULATORY WITH ANTALGIC GAIT TOWARDS THE BATHROOM ABLE TO VOID FREELY ABLE TO TOLERATE FLUIDS AND CRACKERS NAD DISCHARGE INSTRUCTIONS PRINTED BY OUTGOING ERMD PT WAITING FOR CHILDREN'S COUNSELOR FOR HOMELESS DISCHARGE PLANNING/ PLACEMENT
--- NOTE | 2019-01-12 07:03 | NUR ---
HAND OFF AND SBAR GIVEN TO INCOMING DAY SHIFT RN PT NAD, ASLEEP BUT EASILY ROUSED AMBULATORY WITH SLOW STEADY GAIT ABLE TO TOLERATE FLUIDS AND CRACKERS PT IS WAITING FOR NON DESTRUCTIVE EVALUATION MANAGER
--- NOTE | 2019-01-12 07:18 | NUR ---
PT IS SLEEPING COMFORTABLY IN THE BED. NO S/S OF DISTRESS.
--- NOTE | 2019-01-12 10:13 | NUR ---
TABLET TESTER QASIM TALKED TO THE PT AND DISCUSS PT's NEED FOR PLACEMENT AND FURTHER ASSISTANCE. PT REFUSED SHEELTER PLACEMENT AND WAS D/C'd TO HER OWN LOCATION BY DR CRUZ. D/C INSTRUCTIONS GIVEN TO THE PT. NO S/S OF DISTRE AT THE TIME OF DISCHARGE. GAIT IS STABLE.
[2019-01-12 10:15] VITALS: BP 132/79
--- NOTE | 2019-01-12 10:50 | NUR ---
SW consultation requested this morning. SW met with patient in at 9:00am. Patient was in her assigned ED bed, receptive to meeting with this SW. Patient is a 63 year old female, homeless, who came in to the ED last night. Patient is ambulatory, and came to the ED on foot. Patient was seen and medically cleared during protective services officer, but wanted to wait to speak with this SW in the morning. Patient is oriented x 4, cooperative. Patient stated that she wanted to meet with this SW to discuss placement options. Patient stated that she is homeless and tends to live in different motels. Patient gets monthly SSD as income. SW offered homeless correction placement, and patient declined. Patient stated "it's not safe at those places". SW offered additional homeless resources for food, showers, and mental/medical clinics, and patient expressed agreement to have SW provide these resources. SW provided patient with a homeless resource packet which included the [facility] homeless directory which provides a list of places that individuals can go to throughout the week for hot meals, sack lunches, food pantries, and showers. SW also provided patient with a list of mental health clinics, medical clinics, and substance abuse programs. SW also provided patient with information on locations of pharmacies. SW included information on homeless shelters, even though patient declined to go to a correction. SW stated to patient that if she changed her mind, she would at least have the resources to access. Patient expressed understanding and thanked SW for all the information provided. Patient had already signed the homeless waiver form (see chart). Patient was ambulating with steady gait and expressed that she was fine leaving the ED by foot. No transportation arrangements were necessary. No further SS interventions needed at this time. SADIE Rubi informed of above.
== END 2019-01-12 10:15 | disposition home or self-care (01) ==
LOC: ER 21:19
DX: R60.9 Edema, unspecified (principal); F41.9 Anxiety disorder, unspecified; E11.9 Type 2 diabetes mellitus without complications; Z88.8 Allergy status to other drugs, medicaments and biological substances; Z59.0 Homelessness
CPT/HCPCS: 36415; 70030-TC; 71045; 85025; 93005; A4663

== ENCOUNTER 2019-01-17 15:07 | Emergency (ER) | payer BC ==
[~2019-01-17] VITALS: Ht 160 cm; Wt 63.5 kg
--- NOTE | 2019-01-17 15:17 | NUR ---
ERMD AT BEDSIDE FOR MSE
[2019-01-17 15:51] LABS: *BILIRUBIN,URIN NEGATIVE (NEGATIVE); *CLARITY,URINE CLEAR (CLEAR); *COLOR,URINE YELLOW (YELLOW); *KETONES,URINE NEGATIVE (NEGATIVE); *UROBILINOGEN,URINE 0.2 E.U./dl (NORMAL); LEUKOCYTE ESTERASE ,URINE NEGATIVE (NEGATIVE); NITRITE, URINE NEGATIVE (NEGATIVE); UGLUCOSE NEGATIVE (NEGATIVE)
[2019-01-17 16:12] LABS: *BLOOD, URINE TRACE (NEGATIVE)
[2019-01-17] MEDS ORDERED: FUROSEMIDE 20 MG TABLET PO ONE (16:30)
[2019-01-17] MEDS ORDERED: HYDROCODONE/APAP 10-325 MG TABLET ONE (16:30)
[2019-01-17] MEDS ORDERED: FUROSEMIDE 20 MG TABLET ONE (16:30)
[2019-01-17] MEDS ORDERED: HYDROCODONE/APAP 10-325 MG TABLET PO ONE (16:30)
--- NOTE | 2019-01-17 16:39 | NUR ---
Patient given written and verbal discharge instructions. Patient verbalizes understanding of instructions. Patient is ambulatory with steady gait. Refuses offer of long-term placement. Patient given list of available shelters in surrounding area.
[2019-01-17 16:46] LABS: BACTERIA,URINE NONE SEEN /HPF (NONE SEEN); RBC,URINE 0-3 /HPF (0-3); SQUAMOUS EPITHELIAL CELL,UR FEW /HPF (NONE SEEN); WBC,URINE 0-3 /HPF (0-3)
== END 2019-01-17 16:43 | disposition home or self-care (01) ==
LOC: ER 15:09
DX: M54.9 Dorsalgia, unspecified (principal); R60.9 Edema, unspecified; R50.9 Fever, unspecified; E11.9 Type 2 diabetes mellitus without complications; F41.9 Anxiety disorder, unspecified; Z88.8 Allergy status to other drugs, medicaments and biological substances; Z59.0 Homelessness
CPT/HCPCS: A4663

== ENCOUNTER 2019-01-18 18:09 | Emergency (ER) | payer BC ==
[~2019-01-18] VITALS: Ht 170.2 cm; Wt 77.1 kg
--- NOTE | 2019-01-18 18:54 | NUR ---
Patient discharged to home in stable conditon with brisk steady gait. Written and verbal after care instructions given to patient. Patient verbalizes understanding & compliance of instructions.
== END 2019-01-18 19:04 | disposition home or self-care (01) ==
LOC: ER 18:11
DX: M54.9 Dorsalgia, unspecified (principal); R60.9 Edema, unspecified; E11.9 Type 2 diabetes mellitus without complications; F41.9 Anxiety disorder, unspecified; Z76.0 Encounter for issue of repeat prescription; Z88.8 Allergy status to other drugs, medicaments and biological substances; Z59.0 Homelessness
CPT/HCPCS: A4663

== ENCOUNTER 2019-01-20 03:31 | Emergency (ER) | payer BC ==
[~2019-01-20] VITALS: Ht 165.1 cm; Wt 77.1 kg
--- NOTE | 2019-01-20 03:50 | NUR ---
PATIENT BIB [facility] FOR C/O BILATERAL FEET PAIN, PATIENT IS WEARING SLIPPERS, SOLES OF FEET NOTED TO BE CRACKED. NO ACUTE DISTRESS NOTED AT THIS TIME.
--- NOTE | 2019-01-20 06:08 | NUR ---
Patient discharged to home in stable conditon. Written and verbal after care instructions given. Patient verbalizes understanding of instructions. patient left with stable gait.
[2019-01-20 06:09] VITALS: BP 151/77
== END 2019-01-20 06:10 | disposition home or self-care (01) ==
LOC: ER 03:35
DX: G89.29 Other chronic pain (principal); M79.671 Pain in right foot; M79.672 Pain in left foot; F41.9 Anxiety disorder, unspecified; F29 Unspecified psychosis not due to a substance or known physiological condition; Z88.8 Allergy status to other drugs, medicaments and biological substances; Z59.0 Homelessness
CPT/HCPCS: A4663

== ENCOUNTER 2019-01-25 08:07 | Emergency (ER) | payer BC ==
[~2019-01-25] VITALS: Ht 165.1 cm; Wt 70.3 kg
--- NOTE | 2019-01-25 08:27 | NUR ---
PT DOES NOT REMEMBER HER HOME MEDICATTION NAMES AND DOSAGES.
--- NOTE | 2019-01-25 08:45 | NUR ---
called adoption social worker per pt amd request.
--- NOTE | 2019-01-25 09:15 | NUR ---
9:10am: Received voicemail message from ED SADIE James, requesting a SS consultation for this patient. URSSELL called SADIE James back and informed her that SW will be come in to the ED later this morning to meet with the patient. SADIE James agreed.
--- NOTE | 2019-01-25 10:31 | NUR ---
Patient given written and verbal discharge instructions. Patient verbalizes understanding of instructions. Patient is ambulatory with steady gait. Refuses offer of longterm placement. Patient given list of available shelters in surrounding area.
[2019-01-25 10:37] VITALS: BP 139/89
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
== END 2019-01-25 10:39 | disposition home or self-care (01) ==
LOC: ER 08:07
DX: M25.561 Pain in right knee (principal); E11.9 Type 2 diabetes mellitus without complications; F41.9 Anxiety disorder, unspecified; Z88.8 Allergy status to other drugs, medicaments and biological substances; Z59.0 Homelessness; W10.9XXA Fall (on) (from) unspecified stairs and steps, initial encounter; Y93.89 Activity, other specified; Y92.89 Other specified places as the place of occurrence of the external cause; Y99.8 Other external cause status
CPT/HCPCS: A4663

== ENCOUNTER 2019-02-14 18:53 | Emergency (ER) | payer BC ==
[~2019-02-14] VITALS: Ht 170.2 cm; Wt 99.8 kg
[2019-02-14] MEDS ORDERED: HYDROCODONE/APAP 10-325 MG TABLET PO ONE (19:30)
[2019-02-14] MEDS ORDERED: HYDROCODONE/APAP 10-325 MG TABLET ONE (19:38)
--- NOTE | 2019-02-14 20:41 | NUR ---
Patient given written and verbal discharge instructions. Patient verbalizes understanding of instructions. Patient is ambulatory with steady gait. Refuses offer of correction placement. Patient given list of available shelters in surrounding area.
[2019-02-14 20:42] VITALS: BP 138/89
== END 2019-02-14 20:43 | disposition home or self-care (01) ==
LOC: ER 18:58
DX: M79.632 Pain in left forearm (principal); M54.5 Low back pain; E11.9 Type 2 diabetes mellitus without complications; F41.9 Anxiety disorder, unspecified; Z88.8 Allergy status to other drugs, medicaments and biological substances; Z59.0 Homelessness; W18.39XA Other fall on same level, initial encounter; Y93.89 Activity, other specified; Y92.89 Other specified places as the place of occurrence of the external cause; Y99.8 Other external cause status
CPT/HCPCS: 72100; 73090; A4663

== ENCOUNTER 2019-02-25 03:47 | Emergency (ER) | payer BC ==
[~2019-02-25] VITALS: Ht 170.2 cm; Wt 80.3 kg
--- NOTE | 2019-02-25 04:42 | NUR ---
Patient discharged to home in stable conditon. Written and verbal after care instructions given. Patient verbalizes understanding of instructions. Patient states she is not homeless and has a place to sleep tonight.
[2019-02-25 04:45] VITALS: BP 134/81
== END 2019-02-25 04:45 | disposition home or self-care (01) ==
LOC: ER 03:49
DX: G89.29 Other chronic pain (principal); M79.632 Pain in left forearm; M54.5 Low back pain; Z76.5 Malingerer [conscious simulation]; F41.9 Anxiety disorder, unspecified; E11.9 Type 2 diabetes mellitus without complications; Z88.8 Allergy status to other drugs, medicaments and biological substances; Z59.0 Homelessness
CPT/HCPCS: A4663

== ENCOUNTER 2019-02-28 21:42 | Emergency (ER) | payer BC ==
[~2019-02-28] VITALS: Ht 165.1 cm; Wt 72.6 kg
--- NOTE | 2019-02-28 22:45 | NUR ---
Patient ambulating with steady gait. A&O x4. c/o left hip pain. Patient has hx of chronic left hip pain. denies any trauma. no visible injuries noted. Pain does not radiate anywhere per pt. Speech is clear and able to make needs known / follow commands. Breathing even and unlabored. Denies any SOB. denies any / GI distress.
--- NOTE | 2019-02-28 22:50 | NUR ---
Dr. Pedroza at bedside for MSE
[2019-03-01 00:49] LABS: *BILIRUBIN,URIN NEGATIVE (NEGATIVE); *CLARITY,URINE CLEAR (CLEAR); *KETONES,URINE NEGATIVE (NEGATIVE); *UROBILINOGEN,URINE 0.2 E.U./dl (NORMAL); LEUKOCYTE ESTERASE ,URINE NEGATIVE (NEGATIVE); NITRITE, URINE NEGATIVE (NEGATIVE); UGLUCOSE NEGATIVE (NEGATIVE)
[2019-03-01 01:08] LABS: *BLOOD, URINE TRACE (NEGATIVE)
[2019-03-01 01:09] LABS: *COLOR,URINE STRAW (YELLOW)
[2019-03-01 01:13] LABS: RBC,URINE 0-3 /HPF (0-3); WBC,URINE 0-3 /HPF (0-3)
[2019-03-01 01:14] LABS: BACTERIA,URINE NONE SEEN /HPF (NONE SEEN); SQUAMOUS EPITHELIAL CELL,UR FEW /HPF (NONE SEEN)
--- NOTE | 2019-03-01 01:26 | NUR ---
Patient in bed sleeping but easily arousable. Breathing even and unlabored. NAD noted.
--- NOTE | 2019-03-01 01:37 | NUR ---
Patient given written and verbal discharge instructions. Patient verbalizes understanding of instructions. Patient is ambulatory with steady gait. Refuses offer of prison placement. Patient given list of available shelters in surrounding area.
== END 2019-03-01 01:37 | disposition home or self-care (01) ==
LOC: ER 21:48
DX: G89.29 Other chronic pain (principal); M79.10 Myalgia, unspecified site; E11.9 Type 2 diabetes mellitus without complications; F41.9 Anxiety disorder, unspecified; Z88.8 Allergy status to other drugs, medicaments and biological substances; Z59.0 Homelessness
CPT/HCPCS: A4663

== ENCOUNTER 2019-03-29 01:56 | Emergency (ER) | payer BC ==
[~2019-03-29] VITALS: Ht 162.6 cm; Wt 72.6 kg
--- NOTE | 2019-03-29 02:10 | NUR ---
Dr. Díaz at bedside for MSE
[2019-03-29] MEDS ORDERED: IV NORMAL SALINE 1000 ML BAG IV ONE (02:30)
[2019-03-29 03:19] LABS: CREATININE 0.8 mg/dL (0.6-1.3); POTASSIUM 3.7 mmol/L (3.5-5.1)
[2019-03-29 03:25] LABS: BILIRUBIN,DIRECT 0.1 mg/dL (0.0-0.2); BILIRUBIN,TOTAL 0.4 mg/dL (0.2-1.0); TOTAL PROTEIN, SERUM 7.9 g/dL (6.4-8.2)
[2019-03-29 03:26] LABS: BASOPHILS % (AUTO) 0.9 % (0.0-2.0); EOSINOPHILS # (AUTO) 0.3 K/uL (0.0-0.7); EOSINOPHILS % (AUTO) 5.4 % (0.0-7.0); HEMATOCRIT 35.4 % (31.2-41.9); HEMOGLOBIN 11.7 g/dL (10.9-14.3); LYMPHOCYTES # (AUTO) 1.2 K/uL (20.0-40.0); LYMPHOCYTES % (AUTO) 23.6 % (20.5-51.5); MEAN CORPUSCULAR HEMOGLOBIN 30.9 uug (24.7-32.8); MEAN CORPUSCULAR HGB CONC 33 g/dL (32.3-35.6); MEAN CORPUSCULAR VOLUME 93.2 fL (75.5-95.3); MONOCYTES # (AUTO) 0.5 K/uL (2.0-10.0); MONOCYTES % (AUTO) 10.2 % (0.0-11.0); NEUTROPHILS % (AUTO) 59.9 % (38.5-71.5); PLATELET COUNT (AUTO) 241 K/uL (179-408); WHITE BLOOD COUNT (AUTO) 5.1 K/uL (3.8-11.8)
--- NOTE | 2019-03-29 03:28 | NUR ---
Patient in bed sleeping but easily arousable. Breathing even and unlabored. NAD noted
[2019-03-29 03:31] LABS: THYROID STIMULATING HORMONE 3.139 mIU/mL (0.358-3.740)
--- NOTE | 2019-03-29 05:04 | NUR ---
Patient in bed sleeping. Breathing even and unlabored. NAD noted
[2019-03-29 05:56] LABS: *CLARITY,URINE CLEAR (CLEAR); *COLOR,URINE YELLOW (YELLOW)
[2019-03-29 06:00] LABS: *BILIRUBIN,URIN NEGATIVE (NEGATIVE); *BLOOD, URINE NEGATIVE (NEGATIVE); *KETONES,URINE NEGATIVE (NEGATIVE); *UROBILINOGEN,URINE 0.2 E.U./dl (NORMAL); LEUKOCYTE ESTERASE ,URINE NEGATIVE (NEGATIVE); NITRITE, URINE NEGATIVE (NEGATIVE); UGLUCOSE 500 (NEGATIVE)
[2019-03-29 06:07] LABS: RBC,URINE 0-3 /HPF (0-3); WBC,URINE 0-3 /HPF (0-3)
[2019-03-29 06:08] LABS: BACTERIA,URINE NONE SEEN /HPF (NONE SEEN); MUCUS,URINE FEW /LPF (0-FEW); SQUAMOUS EPITHELIAL CELL,UR FEW /HPF (NONE SEEN)
--- NOTE | 2019-03-29 08:28 | NUR ---
Patient given written and verbal discharge instructions. Patient verbalizes understanding of instructions. Patient is ambulatory with steady gait. Refuses offer of nursing home placement. Patient given list of available shelters in surrounding area. Patient ambulated with stable gait.
[2019-03-29 08:31] VITALS: BP 134/71
== END 2019-03-29 08:31 | disposition home or self-care (01) ==
LOC: ER 01:59
DX: S42.402A Unspecified fracture of lower end of left humerus, initial encounter for closed fracture (principal); F41.9 Anxiety disorder, unspecified; E11.9 Type 2 diabetes mellitus without complications; Z88.8 Allergy status to other drugs, medicaments and biological substances; Z59.0 Homelessness; W19.XXXA Unspecified fall, initial encounter; Y93.89 Activity, other specified; Y92.89 Other specified places as the place of occurrence of the external cause; Y99.8 Other external cause status
CPT/HCPCS: 36415; 70030-TC; 71045; 84443; 85025; 85730; 93005; A4663; J7030

== ENCOUNTER 2019-04-01 10:18 | Emergency (ER) | payer BC ==
[~2019-04-01] VITALS: Ht 170.2 cm; Wt 77.1 kg
--- NOTE | 2019-04-01 11:04 | NUR ---
PT IS IN ROOM #2B. DR WIGGINS EVALUATED THE PT.
[2019-04-01] MEDS ORDERED: IBUPROFEN 600 MG TABLET ONE (11:06)
[2019-04-01] MEDS ORDERED: ACETAMINOPHEN 325 MG TABLET ONE (11:07)
[2019-04-01] MEDS ORDERED: ACETAMINOPHEN 325 MG TABLET PO ONE (11:15)
[2019-04-01] MEDS ORDERED: IBUPROFEN 600 MG TABLET PO ONE (11:15)
--- NOTE | 2019-04-01 11:44 | NUR ---
PT WAS EVALUATED BY COMMANDER INTERNAL AFFAIRS QASIM. PT REFUSED TO GO TO SHELTERS. DR WIGGINS TALKED TO THE PT. PT WAS D[facility]D FROM [facility]. PT STATED THAT SHE WILL GO TO HER OWN PLACE.
[2019-04-01 11:47] VITALS: BP 142/76
--- NOTE | 2019-04-01 11:47 | NUR ---
11:15am: Social work consultation requested. This SW arrived to the ED and met with Dr. Mitchell to discuss patient's needs SW then met with the patient, who was in her assigned ED bed. Patient is a 63 year old female, known to this SW from previous ED admissions. Patient was receptive to talking to this SW. Patient is homeless and predominantly stays on the streets or park. Patient is alert, oriented x 4. Patient stated that she stayed in a motel last night, however is unable to do that again because she only has $15 left for the month. SW offered patient resources on winter shelters, but patient refused, stating " I will never go to a [facility]cc, they will steal your stuff there". SW offered other homeless resources, such as food cannon and places to go for hot meals and showers, stating that SW could provide patient a packet of different community resources that patient can utilize if she wanted to once discharged from the hospital. Patient refused all resources and stated "I don't want any resource packet". SW offered patient some clothing, but patient stated she had enough clothing. Patient offered a meal by SADIE Rubi, but patient declined that too, however was receptive to having some milk, which was provided to the patient by SADIE Rubi. Patient stated that she would like to return to her previous living arrangements, and declined any assistance for transportation from the hospital. Homeless Patient Waiver form was signed by the patient, and SW filed the form in patient's ED chart. SW informed SADIE Rubi and Dr. Mitchell of above. No further SS interventions needed at this time.
== END 2019-04-01 11:47 | disposition home or self-care (01) ==
LOC: ER 10:20
DX: S42.402A Unspecified fracture of lower end of left humerus, initial encounter for closed fracture (principal); M79.10 Myalgia, unspecified site; F41.9 Anxiety disorder, unspecified; Z88.8 Allergy status to other drugs, medicaments and biological substances; Z59.0 Homelessness; W01.0XXA Fall on same level from slipping, tripping and stumbling without subsequent striking against object, initial encounter; Y93.89 Activity, other specified; Y92.89 Other specified places as the place of occurrence of the external cause; Y99.8 Other external cause status
CPT/HCPCS: A4663

== ENCOUNTER 2019-04-06 18:30 | Emergency (ER) | payer BC ==
[~2019-04-06] VITALS: Ht 165.1 cm; Wt 71.7 kg
[2019-04-06] MEDS ORDERED: KETOROLAC TROMETHAMINE 15 MG INJ IVP ONE (19:45)
[2019-04-06] MEDS ORDERED: IV NORMAL SALINE 1000 ML BAG IV ONE (19:45)
[2019-04-06 19:51] LABS: BASOPHILS # (AUTO) 0.1 K/uL (0.0-8.0); BASOPHILS % (AUTO) 0.8 % (0.0-2.0); EOSINOPHILS # (AUTO) 0.2 K/uL (0.0-0.7); EOSINOPHILS % (AUTO) 2.6 % (0.0-7.0); HEMATOCRIT 36.6 % (31.2-41.9); HEMOGLOBIN 12.1 g/dL (10.9-14.3); LYMPHOCYTES % (AUTO) 13.9 % (20.5-51.5); MEAN CORPUSCULAR HEMOGLOBIN 28.2 uug (24.7-32.8); MEAN CORPUSCULAR HGB CONC 33 g/dL (32.3-35.6); MEAN CORPUSCULAR VOLUME 85.1 fL (75.5-95.3); MONOCYTES # (AUTO) 0.6 K/uL (2.0-10.0); MONOCYTES % (AUTO) 8.4 % (0.0-11.0); NEUTROPHILS # (AUTO) 5.6 K/uL (1.8-8.9); NEUTROPHILS % (AUTO) 74.3 % (38.5-71.5); PLATELET COUNT (AUTO) 301 K/uL (179-408); RED BLOOD CELL COUNT(AUTO) 4.31 MIL/uL (3.63-4.92); WHITE BLOOD COUNT (AUTO) 7.5 K/uL (3.8-11.8)
[2019-04-06] MEDS ORDERED: KETOROLAC TROMETHAMINE 15 MG INJ ONE (20:00)
[2019-04-06 20:03] LABS: CREATININE 0.7 mg/dL (0.6-1.3); POTASSIUM 3.8 mmol/L (3.5-5.1)
[2019-04-06 20:07] LABS: BILIRUBIN,DIRECT 0.2 mg/dL (0.0-0.2); BILIRUBIN,TOTAL 0.7 mg/dL (0.2-1.0); TOTAL PROTEIN, SERUM 8.3 g/dL (6.4-8.2)
--- NOTE | 2019-04-06 21:23 | NUR ---
ABLE TO TOLERATE IVF PT AMBULATORY W/ STABLE GAIT TOWARDS RESTROOM
--- NOTE | 2019-04-06 21:31 | NUR ---
Patient discharged to home in stable conditon. Written and verbal after care instructions given. Patient verbalizes understanding of instructions. Ambulated from ER with stable gait. All belongings with patient.
[2019-04-06 21:51] VITALS: BP 173/80
== END 2019-04-06 21:31 | disposition home or self-care (01) ==
LOC: ER 18:31
DX: S42.402D Unspecified fracture of lower end of left humerus, subsequent encounter for fracture with routine healing (principal); M79.10 Myalgia, unspecified site; E11.9 Type 2 diabetes mellitus without complications; F41.9 Anxiety disorder, unspecified; Z88.8 Allergy status to other drugs, medicaments and biological substances; Z59.0 Homelessness; W19.XXXD Unspecified fall, subsequent encounter
CPT/HCPCS: 36415; 80048; 80076; 82550; 85025; 96374; 99283; J1885; A4663; J7030

== ENCOUNTER 2019-04-27 13:50 | Emergency (ER) | payer BC, MEDICAID ==
[~2019-04-27] VITALS: Ht 170.2 cm; Wt 72.6 kg
--- NOTE | 2019-04-27 14:30 | NUR ---
SW met with this patient. Patient is a 63 year old female, known to this SW from previous ED visits. Patient is alert, awake, oriented. Patient is homeless. Patient states she stayed in a motel last night. SW provided patient information on available homeless resources, but patient refused the resources and declined [facility] placement. A meal was ordered for the patient. Patient was offered a pair of pants and long sleeve shirt, which patient accepted. Patient stated that she will return to her previous living arrangement. No further SS interventions needed at this time, since patient refused all resources.
--- NOTE | 2019-04-27 14:38 | NUR ---
Nancy begumrajiv in [facility] - 04/27/19 at 1457 by CAROL ANN groundskeeping maintenance worker Jud is here to evaluate this patient.
--- NOTE | 2019-04-27 14:38 | NUR ---
1st contact with patient- AOx4, our social woker is here to evaluate this patient.
--- NOTE | 2019-04-27 15:05 | NUR ---
Patient refused to go to a residential. Patient signed the HOMELESS Patient Waiver form. "I don't want to go to a residential." per patient's verbalization. Food & water were offered.
--- NOTE | 2019-04-27 15:46 | NUR ---
Patient is eating food tray with good appetite. Patient was given written and verbal discharge instructions. Patient verbalizes understanding of verbal and written instructions. Patient is ambulatory with steady gait. Patient still refuses offer of group home placement. Patient was given list of available shelters in surrounding area.
--- NOTE | 2019-04-27 16:09 | NUR ---
Patient said that she wants a taxi. [employer] card was offered. Patient said, "I'll pay for my taxi." [employer] was called, ETA about 5 to 10 minutes. Patient is now waiting in the ER waiting room for taxi. chief safety officer James notified.
--- NOTE | 2019-04-27 16:09 | NUR ---
Nancy king in ED - 04/27/19 at 1614 by CAROL ANN Patient discharged in stable condition & steady gait. Written and verbal after care instructions given to patient. Patient verbalized understanding & compliance of instructions. New pair of pants was also provided per patient's preference.
== END 2019-04-27 16:11 | disposition home or self-care (01) ==
LOC: ER 13:50
DX: S42.402A Unspecified fracture of lower end of left humerus, initial encounter for closed fracture (principal); F41.9 Anxiety disorder, unspecified; F32.9 Major depressive disorder, single episode, unspecified; F10.10 Alcohol abuse, uncomplicated; Z60.2 Problems related to living alone; Z88.8 Allergy status to other drugs, medicaments and biological substances; Z59.0 Homelessness; X58.XXXA Exposure to other specified factors, initial encounter; Y93.89 Activity, other specified; Y92.89 Other specified places as the place of occurrence of the external cause; Y99.8 Other external cause status
CPT/HCPCS: 73080; A4663

== ENCOUNTER 2019-05-03 04:01 | Emergency (ER) | payer BC ==
[~2019-05-03] VITALS: Ht 170.2 cm; Wt 63.5 kg
--- NOTE | 2019-05-03 04:30 | NUR ---
Dr. Walsh at bedside for MSE
[2019-05-03] MEDS ORDERED: KETOROLAC TROMETHAMINE 30 MG INJ IM ONE (04:45)
[2019-05-03] MEDS ORDERED: KETOROLAC TROMETHAMINE 30 MG INJ ONE (04:49)
[2019-05-03 05:28] LABS: BASOPHILS % (AUTO) 1.1 % (0.0-2.0); EOSINOPHILS # (AUTO) 0.2 K/uL (0.0-0.7); EOSINOPHILS % (AUTO) 4.8 % (0.0-7.0); HEMOGLOBIN 12.7 g/dL (10.9-14.3); LYMPHOCYTES # (AUTO) 1.3 K/uL (20.0-40.0); LYMPHOCYTES % (AUTO) 36.9 % (20.5-51.5); MEAN CORPUSCULAR HGB CONC 34 g/dL (32.3-35.6); MEAN CORPUSCULAR VOLUME 90.1 fL (75.5-95.3); MONOCYTES # (AUTO) 0.5 K/uL (2.0-10.0); MONOCYTES % (AUTO) 12.6 % (0.0-11.0); NEUTROPHILS # (AUTO) 1.6 K/uL (1.8-8.9); NEUTROPHILS % (AUTO) 44.6 % (38.5-71.5); PLATELET COUNT (AUTO) 273 K/uL (179-408); RED BLOOD CELL COUNT(AUTO) 4.11 MIL/uL (3.63-4.92); WHITE BLOOD COUNT (AUTO) 3.6 K/uL (3.8-11.8)
--- NOTE | 2019-05-03 05:28 | NUR ---
US at bedside
[2019-05-03 05:54] LABS: BILIRUBIN,DIRECT 0.1 mg/dL (0.0-0.2); BILIRUBIN,TOTAL 0.5 mg/dL (0.2-1.0); CREATININE 0.6 mg/dL (0.6-1.3); POTASSIUM 3.9 mmol/L (3.5-5.1); TOTAL PROTEIN, SERUM 8.3 g/dL (6.4-8.2)
[2019-05-03 06:06] LABS: *BILIRUBIN,URIN NEGATIVE (NEGATIVE); *BLOOD, URINE NEGATIVE (NEGATIVE); *CLARITY,URINE CLEAR (CLEAR); *COLOR,URINE YELLOW (YELLOW); *KETONES,URINE NEGATIVE (NEGATIVE); LEUKOCYTE ESTERASE ,URINE TRACE (NEGATIVE); NITRITE, URINE NEGATIVE (NEGATIVE); UGLUCOSE NEGATIVE (NEGATIVE)
[2019-05-03 06:20] LABS: BACTERIA,URINE FEW /HPF (NONE SEEN); SQUAMOUS EPITHELIAL CELL,UR MODERATE /HPF (NONE SEEN)
== END 2019-05-03 06:30 | disposition home or self-care (01) ==
LOC: ER 04:08
DX: M79.604 Pain in right leg (principal); M79.605 Pain in left leg; F41.9 Anxiety disorder, unspecified; F32.9 Major depressive disorder, single episode, unspecified; F10.10 Alcohol abuse, uncomplicated; Z88.2 Allergy status to sulfonamides; Z88.8 Allergy status to other drugs, medicaments and biological substances; Z59.0 Homelessness
CPT/HCPCS: 36415; 80048; 80076; 81000; 81001; 82550; 85025; 87086; 93970; 96372; 99284; J1885; A4663

== ENCOUNTER 2019-05-12 03:18 | Emergency (ER) | payer BC ==
[~2019-05-12] VITALS: Ht 167.6 cm; Wt 70.3 kg
--- NOTE | 2019-05-12 03:34 | NUR ---
AOx3 RA NAD ambulatory w/ stable gait +cast on the left arm states she is very ill and states , "i need a home" monitored accordingly
--- NOTE | 2019-05-12 04:01 | NUR ---
Pt asleep but easily rousable RA WASHBURN ERMD at bedside
[2019-05-12] MEDS ORDERED: HYDROCODONE/APAP 10-325 MG TABLET PO ONE (04:15)
[2019-05-12] MEDS ORDERED: HYDROCODONE/APAP 10-325 MG TABLET ONE (04:19)
[2019-05-12 06:07] VITALS: BP 148/81
== END 2019-05-12 06:08 | disposition home or self-care (01) ==
LOC: ER 03:20
DX: G89.29 Other chronic pain (principal); M79.606 Pain in leg, unspecified; E11.9 Type 2 diabetes mellitus without complications; F41.9 Anxiety disorder, unspecified; F32.9 Major depressive disorder, single episode, unspecified; Z88.5 Allergy status to narcotic agent; Z59.0 Homelessness
CPT/HCPCS: A4663

== ENCOUNTER 2019-09-03 13:36 | Emergency (ER) | payer BC ==
[~2019-09-03] VITALS: Ht 170.2 cm; Wt 77.1 kg
--- NOTE | 2019-09-03 14:20 | NUR ---
Dr. Pedroza at bedside for MSE
--- NOTE | 2019-09-03 16:08 | NUR ---
Patient given written and verbal discharge instructions. Patient verbalizes understanding of instructions. Patient is ambulatory with steady gait. Refuses offer of custodial placement. Patient given list of available shelters in surrounding area. NAD noted
[2019-09-03 16:13] VITALS: BP 155/83
== END 2019-09-03 16:08 | disposition home or self-care (01) ==
LOC: ER 13:42
DX: G89.29 Other chronic pain (principal); M25.552 Pain in left hip; F32.9 Major depressive disorder, single episode, unspecified; Z91.81 History of falling; Z59.0 Homelessness; Z87.81 Personal history of (healed) traumatic fracture
CPT/HCPCS: 72192; A4663

== ENCOUNTER 2019-09-13 05:25 | Emergency (ER) | payer BC, OTHER ==
[~2019-09-13] VITALS: Ht 170.2 cm; Wt 77.1 kg
--- NOTE | 2019-09-13 05:43 | NUR ---
Pt brought herself in to ER. Ambulated to ER in steady gait. AO x 4. Patient able to verbalize needs. c/o of upper extremity pain 5-7/10 pain, intermittent, aggravated by movement of the upper extremities. Denies headache, chest pain, or shortness of breath. Not in any distresss. No GI/ complaints. Pt noted to be very chatty with flight of ideas. She states that she needs something for pain relief that would allow her to relax. Pt also noted with labile mood. Cooperative. Skin appears to be intact. Side rails up x 1. Bed locked in position. Fall and safety precautions maintained.
--- NOTE | 2019-09-13 05:47 | NUR ---
Dr. Pedroza at bedside for MSE.
[2019-09-13] MEDS ORDERED: VENLAFAXINE 25 MG TABLET PO ONE (06:00)
[2019-09-13] MEDS ORDERED: VENLAFAXINE 25 MG TABLET ONE (06:03)
[2019-09-13] MEDS ORDERED: VENLAFAXINE XR 37.5 MG CAP.SR.24H PO ONE (06:15)
[2019-09-13] MEDS ORDERED: VENLAFAXINE XR 75 MG TAB.ER.24H PO ONE (06:20)
--- NOTE | 2019-09-13 06:20 | NUR ---
Effexor 25 mg tablets to complete 75 mg dose ordered not available , changed order to Effexor XR 75mg pill. Nursing airline managerial supervisor provided the medication.
--- NOTE | 2019-09-13 06:26 | NUR ---
Pt is in bed, resting. Per patient, she would like to wait for the nursing home social worker to arrive in the AM. okay with it. Placed patient in comfortable position. Fall and safety precautions maintained.
--- NOTE | 2019-09-13 07:05 | NUR ---
Report given to Alban NOEL.
--- NOTE | 2019-09-13 09:26 | NUR ---
provided patient with food
--- NOTE | 2019-09-13 10:00 | NUR ---
Jud Hydrogenation Still Operator at bedside talk to the patient
--- NOTE | 2019-09-13 10:30 | NUR ---
Patient provided with resources by marble worker. Patient discharged to home in stable condition. Written and verbal after care instructions given. Patient verbalizes understanding of instructions. Stressed follow up or return to ER for worsening s/s. Patient ambulating with steady gait. Patient currently has living arrangements per patient
[2019-09-13 10:58] VITALS: BP 138/71
--- NOTE | 2019-09-13 13:57 | NUR ---
10:00am: SW arrived to the ED, per request for a medical social worker consultation. SW met with Dr. Huang and SADIE Phoenix, and discussed patient's need for a medical social worker consultation. SW then met with the patient, who was sitting up in her assigned ED bed, awake, alert, oriented x 4, receptive to meeting with this SW. Patient is a 63-year-old female. Per ED physician's notes, patient came to the ED with various aches and pains including leg pain and arm pain, and to see a social science manager for housing resources. Patient states that she has been living at a board and care facility in [place] for the past 3 months, but was considering moving to another [facility] and [facility] and wanted to ask this SW for some resources. SW provided patient with the New Lifestyles Guide to [facility] and Care booklet, along with a list of board & care and [facility] facilities from the [facility] SS resource directory. Patient was receptive to these resources, and thanked this SW. SW asked patient if she had any other questions, and patient stated that she did not. No further SS interventions needed at this time. RUSSELL informed SADIE Phoenix and Dr. Huang that SS resources have been provided. Addendum: 09/13/19 at 1412 by QASIM WELLS Board and Care facility in [place], located at [address] [place] [address].
== END 2019-09-13 10:30 | disposition home or self-care (01) ==
LOC: ER 05:27
DX: F32.9 Major depressive disorder, single episode, unspecified (principal); Z59.0 Homelessness
CPT/HCPCS: A4663

== ENCOUNTER 2019-09-29 22:22 | Emergency (ER) | payer BC, OTHER ==
[~2019-09-29] VITALS: Ht 170.2 cm; Wt 79.4 kg
--- NOTE | 2019-09-29 22:45 | NUR ---
Dr. Walsh at bedside for MSE.
[2019-09-29 23:04] LABS: *BILIRUBIN,URIN 1+ (NEGATIVE); *BLOOD, URINE NEGATIVE (NEGATIVE); *CLARITY,URINE CLEAR (CLEAR); *COLOR,URINE YELLOW (YELLOW); *KETONES,URINE NEGATIVE (NEGATIVE); *UROBILINOGEN,URINE 0.2 E.U./dl (NORMAL); LEUKOCYTE ESTERASE ,URINE TRACE (NEGATIVE); NITRITE, URINE NEGATIVE (NEGATIVE); PH,URINE 5.5 (5.0-8.0); UGLUCOSE NEGATIVE (NEGATIVE)
[2019-09-29 23:17] LABS: RBC,URINE 0-3 /HPF (0-3); SQUAMOUS EPITHELIAL CELL,UR FEW /HPF (NONE SEEN)
--- NOTE | 2019-09-29 23:44 | NUR ---
Patient given written and verbal discharge instructions. Patient verbalizes understanding of instructions. Patient is ambulatory with steady gait. Refuses offer of halfway placement. Patient given list of available shelters in surrounding area. Meal provided to patient. Ambulated out of ER in steady gait.
[2019-09-30 00:08] VITALS: BP 150/49
== END 2019-09-29 23:55 | disposition home or self-care (01) ==
LOC: ER 22:27
DX: N39.0 Urinary tract infection, site not specified (principal); R21 Rash and other nonspecific skin eruption; M79.10 Myalgia, unspecified site; Z59.0 Homelessness; Z91.14 Patient's other noncompliance with medication regimen
CPT/HCPCS: A4663

== ENCOUNTER 2019-10-18 22:38 | Emergency (ER) | payer MEDICAID, OTHER ==
[~2019-10-18] VITALS: Ht 170.2 cm; Wt 77.1 kg
--- NOTE | 2019-10-18 23:05 | NUR ---
DR. CROWLEY AT BEDSIDE FOR MSE.
--- NOTE | 2019-10-18 23:47 | NUR ---
Patient discharged to home in stable condition. Written and verbal after care instructions given. Patient verbalizes understanding of instructions. Stressed follow up or return to ER for worsening s/s.
[2019-10-18 23:48] VITALS: BP 146/72
== END 2019-10-18 23:48 | disposition home or self-care (01) ==
LOC: ER 22:40
DX: G89.29 Other chronic pain (principal); M25.522 Pain in left elbow; M25.521 Pain in right elbow; M54.9 Dorsalgia, unspecified; Z91.14 Patient's other noncompliance with medication regimen; Z59.0 Homelessness
CPT/HCPCS: A4663

== ENCOUNTER 2020-07-01 13:05 | Emergency (ER) | payer MEDICAID ==
[~2020-07-01] VITALS: Ht 165.1 cm; Wt 63.5 kg
--- NOTE | 2020-07-01 13:45 | NUR ---
Attempted IV placement, pt complained of it hurting too much, then refused another attempt. MD said to hold off on lock.
[2020-07-01 14:02] LABS: BASOPHILS # (AUTO) 0.1 K/uL (0.0-8.0); BASOPHILS % (AUTO) 1.3 % (0.0-2.0); EOSINOPHILS # (AUTO) 0.1 K/uL (0.0-0.7); EOSINOPHILS % (AUTO) 1.7 % (0.0-7.0); HEMATOCRIT 34.6 % (31.2-41.9); HEMOGLOBIN 11.3 g/dL (10.9-14.3); LYMPHOCYTES # (AUTO) 0.9 K/uL (20.0-40.0); LYMPHOCYTES % (AUTO) 20.9 % (20.5-51.5); MEAN CORPUSCULAR HGB CONC 33 g/dL (32.3-35.6); MEAN CORPUSCULAR VOLUME 82.7 fL (75.5-95.3); MONOCYTES # (AUTO) 0.6 K/uL (2.0-10.0); MONOCYTES % (AUTO) 12.7 % (0.0-11.0); NEUTROPHILS # (AUTO) 2.9 K/uL (1.8-8.9); NEUTROPHILS % (AUTO) 63.4 % (38.5-71.5); PLATELET COUNT (AUTO) 360 K/uL (179-408); POTASSIUM 3.9 mmol/L (3.5-5.1); RED BLOOD CELL COUNT(AUTO) 4.19 MIL/uL (3.63-4.92); WHITE BLOOD COUNT (AUTO) 4.5 K/uL (3.8-11.8)
[2020-07-01 14:15] LABS: BILIRUBIN,DIRECT 0.2 mg/dL (0.0-0.2); BILIRUBIN,TOTAL 0.4 mg/dL (0.2-1.0); TOTAL PROTEIN, SERUM 8.5 g/dL (6.4-8.2)
[2020-07-01] MEDS ORDERED: IOHEXOL 350 100 ML INFUS..BTL ONE (15:40)
[2020-07-01] MEDS ORDERED: IV NORMAL SALINE 250 ML IV ONE (15:40)
[2020-07-01] MEDS ORDERED: SWABABLE VALVE TRANSFER SET EA MC ONE (15:40)
--- NOTE | 2020-07-01 17:28 | NUR ---
Pt resting in bed, no complaints, no distress noted. Gave pt dinner tray.
[2020-07-01] MEDS ORDERED: MAG HYDROX/AL HYDROX/SIMETH 30 ML LIQUID UDC PO ONE (18:45)
[2020-07-01] MEDS ORDERED: IV NORMAL SALINE 1000 ML BAG IV ONE (18:45)
[2020-07-01] MEDS ORDERED: PANTOPRAZOLE SODIUM 40 MG VIAL IV ONE (18:45)
--- NOTE | 2020-07-01 18:53 | NUR ---
[facility] from [facility]. She instructed me to fax clinicals to [place] [phone]. AUTH# transport: [id number].
[2020-07-01] MEDS ORDERED: MAG HYDROX/AL HYDROX/SIMETH 30 ML LIQUID UDC ONE (18:58)
[2020-07-01] MEDS ORDERED: PANTOPRAZOLE SODIUM 40 MG VIAL ONE (18:59)
--- NOTE | 2020-07-01 21:00 | NUR ---
Received call from Jose Daniel Handtools Repairer [facility]. Patient going to 6W, room 623, accepting MD is Dr. Causey, number to report to .
--- NOTE | 2020-07-01 21:06 | NUR ---
Called [facility], eta 45 min.
--- NOTE | 2020-07-01 22:03 | NUR ---
Nancy king in [facility] - 07/01/20 at 2204 by ELIEZER Report given to Edith Simon
--- NOTE | 2020-07-01 22:04 | NUR ---
[facility].
== END 2020-07-01 22:06 | disposition short-term general hospital (02) ==
LOC: ER 13:08
DX: R07.9 Chest pain, unspecified (principal); I45.10 Unspecified right bundle-branch block; J98.11 Atelectasis; E04.2 Nontoxic multinodular goiter; Z20.822 Contact with and (suspected) exposure to COVID-19; R79.1 Abnormal coagulation profile; Z59.0 Homelessness; Z88.8 Allergy status to other drugs, medicaments and biological substances; F41.9 Anxiety disorder, unspecified
CPT/HCPCS: 36415; 71045; 71275; 80048; 80076; 83880; 84484; 85025; 85379; 87426; 93005; 96361; 96374; 99285; C9113; Q9967; 70030-TC; A4663; J7050

== ENCOUNTER 2021-01-21 00:48 | Emergency (ER) | payer MEDICAID ==
[~2021-01-21] VITALS: Ht 167.6 cm; Wt 72.6 kg
--- NOTE | 2021-01-21 00:48 | NUR ---
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
--- NOTE | 2021-01-21 00:56 | NUR ---
Dr. Leger on bedside for MSE.
[2021-01-21] MEDS ORDERED: NITROGLYCERIN OINT 1 GM PACKET TP ONE ×2 (01:00→01:30)
[2021-01-21] MEDS ORDERED: ASPIRIN 81 MG TAB.CHEW PO ONE (01:00)
[2021-01-21] MEDS ORDERED: IBUPROFEN 400 MG TABLET PO ONE (01:00)
[2021-01-21 01:26] LABS: HEMATOCRIT 34.1 % (31.2-41.9); MEAN CORPUSCULAR HEMOGLOBIN 26.1 uug (24.7-32.8); MEAN CORPUSCULAR VOLUME 79.7 fL (75.5-95.3); PLATELET COUNT (AUTO) 328 K/uL (179-408)
[2021-01-21 01:27] LABS: POTASSIUM 4.1 mmol/L (3.5-5.1)
[2021-01-21] MEDS ORDERED: IBUPROFEN 400 MG TABLET ONE (01:30)
[2021-01-21] MEDS ORDERED: ASPIRIN 81 MG TAB.CHEW ONE (01:30)
[2021-01-21 01:44] LABS: BILIRUBIN,DIRECT 0.1 mg/dL (0.0-0.2); BILIRUBIN,TOTAL 0.3 mg/dL (0.2-1.0); TOTAL PROTEIN, SERUM 8.4 g/dL (6.4-8.2)
[2021-01-21] MEDS ORDERED: IV NORMAL SALINE 250 ML IV ONE (02:02)
[2021-01-21] MEDS ORDERED: SWABABLE VALVE TRANSFER SET EA MC ONE (02:02)
[2021-01-21] MEDS ORDERED: IOHEXOL 350 100 ML INFUS..BTL ONE (02:02)
--- NOTE | 2021-01-21 02:26 | NUR ---
Pt back to ER from CT.
[2021-01-21] MEDS ORDERED: IV NORMAL SALINE 1000 ML BAG IV ONE (03:30)
--- NOTE | 2021-01-21 05:10 | NUR ---
Patient discharged to home in stable condition. Written and verbal after care instructions given. Patient verbalizes understanding of instructions. Stressed follow up or return to ER for worsening s/s. Patient ambulated fr the ER with steady gait. All belongings with patient.
[2021-01-21 05:19] VITALS: BP 124/63
== END 2021-01-21 05:10 | disposition home or self-care (01) ==
LOC: ER 00:48
DX: G89.29 Other chronic pain (principal); R07.9 Chest pain, unspecified; E11.65 Type 2 diabetes mellitus with hyperglycemia; Z91.14 Patient's other noncompliance with medication regimen; M79.10 Myalgia, unspecified site; R00.0 Tachycardia, unspecified; R79.1 Abnormal coagulation profile; Z59.01 Sheltered homelessness; Z86.59 Personal history of other mental and behavioral disorders; M13.0 Polyarthritis, unspecified; Z88.8 Allergy status to other drugs, medicaments and biological substances
CPT/HCPCS: 36415; 71275; 80048; 80076; 83880; 84484 ×2; 85025; 85379; 87426; 93005; 96360; 99285; Q9967; 70030-TC; A4663; J7030; J7050

== ENCOUNTER 2021-01-25 20:32 | Emergency (ER) | payer BC, MEDICAID, OTHER ==
[~2021-01-25] VITALS: Ht 170.2 cm; Wt 72.6 kg
[2021-01-26 00:17] LABS: CREATININE 0.7 mg/dL (0.6-1.3); HEMATOCRIT 36.1 % (31.2-41.9); MEAN CORPUSCULAR HEMOGLOBIN 25.9 uug (24.7-32.8); MEAN CORPUSCULAR VOLUME 79.5 fL (75.5-95.3); PLATELET COUNT (AUTO) 375 K/uL (179-408); POTASSIUM 3.7 mmol/L (3.5-5.1)
[2021-01-26 01:23] LABS: *BILIRUBIN,URIN NEGATIVE (NEGATIVE); *BLOOD, URINE 1+ (NEGATIVE); *CLARITY,URINE CLEAR (CLEAR); *COLOR,URINE YELLOW (YELLOW); *KETONES,URINE NEGATIVE (NEGATIVE); LEUKOCYTE ESTERASE ,URINE NEGATIVE (NEGATIVE); NITRITE, URINE NEGATIVE (NEGATIVE); PH,URINE 5.5 (5.0-8.0); UGLUCOSE NEGATIVE (NEGATIVE)
[2021-01-26] MEDS ORDERED: NAPR-1164 PO (01:31)
[2021-01-26 01:32] LABS: BACTERIA,URINE NONE SEEN /HPF (NONE SEEN); SQUAMOUS EPITHELIAL CELL,UR FEW /HPF (NONE SEEN); WBC,URINE 0-3 /HPF (0-3)
--- NOTE | 2021-01-26 02:03 | NUR ---
Called Pulmonary Nurse Practitioner for a Taxi Voucher.
--- NOTE | 2021-01-26 02:49 | NUR ---
Pt in waiting room, awaiting taxi.
[2021-01-26 03:19] VITALS: BP 145/69
== END 2021-01-26 03:19 | disposition home or self-care (01) ==
LOC: ER 20:33
DX: R52 Pain, unspecified (principal); Z59.01 Sheltered homelessness; Z91.14 Patient's other noncompliance with medication regimen; Z88.8 Allergy status to other drugs, medicaments and biological substances; F10.10 Alcohol abuse, uncomplicated; E11.9 Type 2 diabetes mellitus without complications; F41.9 Anxiety disorder, unspecified
CPT/HCPCS: 36415; 85025; A4663

== ENCOUNTER 2021-02-24 22:53 | Emergency (ER) | payer OTHER ==
[~2021-02-24] VITALS: Ht 165.1 cm; Wt 59.0 kg
[~2021-02-24 22:53] MED LIST: NAPR-1164 PO
--- NOTE | 2021-02-24 23:33 | NUR ---
PT AMBULATED TO ER WITH STEADY GAIT C/O LT KNEE AND RT ARM PAIN X2 WEEKS. PT A/O X3, NO SOB OR LABORED BREATHING, AFEBRILE. DENIES CP/PRESSURE. NO N/V/D. CLEAR SPEECH, COMPLETE SENTENCES.
--- NOTE | 2021-02-24 23:38 | NUR ---
DR. CROWLEY AT BEDSIDE, MSE IN PROGRESS.
[2021-02-24] MEDS ORDERED: DOCUSATE SODIUM 100 MG/10 ML LIQUID UDC NG ONE (23:45)
[2021-02-24] MEDS ORDERED: DOCUSATE SODIUM 100 MG/10 ML LIQUID UDC ONE (23:54)
--- NOTE | 2021-02-25 01:17 | NUR ---
Patient given written and verbal discharge instructions. Patient verbalizes understanding of instructions. Patient is ambulatory with steady gait. Refuses offer of half-way placement. Patient given list of available shelters in surrounding area. Provided pt with meal prior to discharge. Steady gait. Denies any pain/discomfort upon discharge.
[2021-02-25 01:19] VITALS: BP 144/87
== END 2021-02-25 01:20 | disposition home or self-care (01) ==
LOC: ER 22:56
DX: H61.22 Impacted cerumen, left ear (principal); Z59.02 Unsheltered homelessness

== ENCOUNTER 2021-04-23 10:29 | Emergency (ER) | payer OTHER ==
[~2021-04-23] VITALS: Ht 165.1 cm; Wt 65.8 kg
--- NOTE | 2021-04-23 11:10 | NUR ---
Dr Jefferson at the bedside for MSE.
[2021-04-23] MEDS ORDERED: IBUP-1953 PO (11:22)
[2021-04-23 11:43] LABS: CARBON DIOXIDE 28 mmol/L (21-32); CHLORIDE 104 mmol/L (98-107); CREATININE 0.7 mg/dL (0.6-1.3); GLUCOSE 125 mg/dL (74-106); UREA NITROGEN, BLOOD 19 mg/dL (7-18)
[2021-04-23 11:45] LABS: HEMATOCRIT 34.5 % (31.2-41.9); MEAN CORPUSCULAR HEMOGLOBIN 26.6 uug (24.7-32.8); MEAN CORPUSCULAR VOLUME 79.5 fL (75.5-95.3); PLATELET COUNT (AUTO) 246 K/uL (179-408)
[2021-04-23 11:47] LABS: ETHANOL < 3 MG/DL (0-0)
[2021-04-23 11:50] LABS: ACETAMINOPHEN < 2.0 ug/mL (10-30); ALANINE AMINOTRANSFERASE 16 U/L (14-59); ALKALINE PHOSPHATASE 65 U/L (50-136); ASPARTATE AMINOTRANSFERASE 19 U/L (15-37); BILIRUBIN,DIRECT 0.1 mg/dL (0.0-0.2); BILIRUBIN,TOTAL 0.3 mg/dL (0.2-1.0); CREATINE KINASE, TOTAL 47 U/L (26-192); TOTAL PROTEIN, SERUM 8.1 g/dL (6.4-8.2)
--- NOTE | 2021-04-23 12:20 | NUR ---
Lunch tray provided, pt ate w/ moderate appettite.
--- NOTE | 2021-04-23 12:36 | NUR ---
licensing workerBirgit at the bedside. Pt speaking regarding placement.
--- NOTE | 2021-04-23 13:56 | NUR ---
Clinical Social Work Note RUSSELL met with 65 year old female who is alert and oriented x3. Patient presents with a hostile mood and congruent affect. SW discussed placement options with patient such as voluntary hospitalization at [facility]. Patient stated she does not want to be hospitalized here nor at [facility]. She stated that her plan is to go live at a previous hotel she was staying at called the [employer] ([address] [place] [address]). SW asked patient if she was in need of transportation and she stated that she will be taking a taxi and refused T[employer] card. Patient was provided with a brief substance abuse intervention and referred to the following substance abuse programs: [facility] ([phone]); [facility] [address] [place] [address] ([phone]); [address] [place] [address] ([phone]); [facility] ([phone]); [facility] ([phone]); [facility] ([phone]); [facility] ([phone]).
--- NOTE | 2021-04-23 14:32 | NUR ---
Resource packet provided by nephrology social worker. Patient discharged in stable condition. Written and verbal after care instructions given. Patient verbalizes understanding of instructions. Stressed follow up or return to ER for worsening s/s.
--- NOTE | 2021-04-23 14:33 | NUR ---
Pt walked out of ER using own cane.
[2021-04-23 14:34] VITALS: BP 123/70
--- NOTE | 2021-04-29 12:19 | NUR ---
Clinical Social Work Note Patient came to Emergency Room asking to be referred to [facility] [address] [place] [address], . Per patient [facility] will only accept her if she is referred by hospital. SW called [facility] and inquired about information needed. [facility] informed SW that they accept patient after they have bee admitted and discharged thus this patient is not eligible. Patient is not being admitted to the Emergency Room. SW explained [facility] requirements for admission and patient got upset. SW offered patient with homeless packet and patient refused, stating "I do not want that."
== END 2021-04-23 14:35 | disposition home or self-care (01) ==
LOC: ER 10:29
DX: F20.9 Schizophrenia, unspecified (principal); Z59.01 Sheltered homelessness; E11.65 Type 2 diabetes mellitus with hyperglycemia; F31.9 Bipolar disorder, unspecified; Z91.14 Patient's other noncompliance with medication regimen; Z88.8 Allergy status to other drugs, medicaments and biological substances; F10.10 Alcohol abuse, uncomplicated; Y90.0 Blood alcohol level of less than 20 mg/100 ml; R94.31 Abnormal electrocardiogram [ECG] [EKG]; G89.29 Other chronic pain; Z20.822 Contact with and (suspected) exposure to COVID-19
CPT/HCPCS: 36415; 70030-TC; 71045; 85025; 93005; A4663; G0480

== ENCOUNTER 2021-05-02 00:54 | Emergency (ER) | payer OTHER ==
[~2021-05-02] VITALS: Ht 170.2 cm; Wt 66.7 kg
[~2021-05-02 00:54] MED LIST changes: +IBUP-1953 PO; -NAPR-1164 PO
--- NOTE | 2021-05-02 01:37 | NUR ---
DR. GRANADOS AT BEDSIDE, MSE IN PROGRESS.
--- NOTE | 2021-05-02 01:55 | NUR ---
Called [facility] and requested medical records for 05/01/21, faxed release of record form to .
[2021-05-02] MEDS ORDERED: DICYCLOMINE HCL LIQ 10 MG/5 ML UDC PO ONE (02:15)
[2021-05-02] MEDS ORDERED: DICYCLOMINE HCL 20 MG TABLET PO SCH (03:00)
[2021-05-02] MEDS ORDERED: DICYCLOMINE HCL 10 MG CAPSULE ONE (03:03)
[2021-05-02] MEDS ORDERED: ONDA4TAB5 PO (03:08)
--- NOTE | 2021-05-02 03:28 | NUR ---
Patient given written and verbal discharge instructions. Patient verbalizes understanding of instructions. Patient is ambulatory with steady gait. Refuses offer of half-way placement. Patient given list of available shelters in surrounding area. Steady gait. No SOB or labored breathing. Denies any pain/discomfort upon discharge. Provided pt with meal prior to discharge.
[2021-05-02 03:29] VITALS: BP 130/72
== END 2021-05-02 03:29 | disposition home or self-care (01) ==
LOC: ER 00:57
DX: G89.29 Other chronic pain (principal); Z59.00 Homelessness unspecified; D64.9 Anemia, unspecified; Z91.19 Patient's noncompliance with other medical treatment and regimen; F20.9 Schizophrenia, unspecified; R10.84 Generalized abdominal pain; F32.A Depression, unspecified; F10.11 Alcohol abuse, in remission
CPT/HCPCS: A4663

== ENCOUNTER 2021-05-04 04:38 | Emergency (ER) | payer MEDICAID, OTHER ==
[~2021-05-04] VITALS: Ht 165.1 cm; Wt 67.1 kg
[~2021-05-04 04:38] MED LIST changes: +ONDA4TAB5 PO
[2021-05-04] MEDS ORDERED: ACETAMINOPHEN 325 MG TABLET PO ONE (05:15)
[2021-05-04] MEDS ORDERED: ACETAMINOPHEN 325 MG TABLET ONE (05:23)
[2021-05-04 05:29] VITALS: BP 129/99
--- NOTE | 2021-05-04 05:29 | NUR ---
Patient given written and verbal discharge instructions. Patient verbalizes understanding of instructions. Patient is ambulatory with steady gait. Refuses offer of mcc placement. Patient given list of available shelters in surrounding area.
== END 2021-05-04 05:30 | disposition home or self-care (01) ==
LOC: ER 04:39
DX: R52 Pain, unspecified (principal); Z59.00 Homelessness unspecified; Z91.81 History of falling; I10 Essential (primary) hypertension; Z88.8 Allergy status to other drugs, medicaments and biological substances
CPT/HCPCS: A4663

== ENCOUNTER 2021-05-08 01:02 | Emergency (ER) | payer MEDICAID ==
[~2021-05-08] VITALS: Ht 165.1 cm; Wt 65.8 kg
--- NOTE | 2021-05-08 01:25 | NUR ---
PATIENT WAS MSE BY DR ADAMS IN ROOM 04A.
[2021-05-08] MEDS ORDERED: IBUP-1955 PO (01:28)
[2021-05-08] MEDS: CYANOCOBALAMIN 1000 MCG/ML VIAL IM ONE (01:33)
[2021-05-08] MEDS: IBUPROFEN 400 MG TABLET PO ONE (01:34)
[2021-05-08] MEDS ORDERED: IBUPROFEN 400 MG TABLET ONE (01:38)
[2021-05-08] MEDS ORDERED: CYANOCOBALAMIN 1000 MCG/ML VIAL ONE (01:38)
[2021-05-08 01:49] VITALS: BP 135/71
== END 2021-05-08 01:50 | disposition home or self-care (01) ==
LOC: ER 01:03
DX: M79.10 Myalgia, unspecified site (principal); E11.9 Type 2 diabetes mellitus without complications; M79.672 Pain in left foot; M79.671 Pain in right foot; Z88.8 Allergy status to other drugs, medicaments and biological substances; Z59.00 Homelessness unspecified; Z79.1 Long term (current) use of non-steroidal anti-inflammatories (NSAID); Z79.899 Other long term (current) drug therapy
CPT/HCPCS: 96372; 99283; J3420; A4663

== ENCOUNTER 2021-05-11 22:04 | Emergency (ER) | payer MEDICAID ==
[~2021-05-11] VITALS: Ht 170.2 cm; Wt 65.8 kg
[~2021-05-11 22:04] MED LIST changes: +IBUP-1955 PO
--- NOTE | 2021-05-11 22:16 | NUR ---
PT AMBULATED TO ROOM 4B. COMPLAINS OF HAND PAIN.
[2021-05-12] MEDS ORDERED: diphenhydrAMINE 25 MG CAP PO ONE ×2 (01:45→01:58)
--- NOTE | 2021-05-12 01:56 | NUR ---
Patient given written and verbal discharge instructions. Patient verbalizes understanding of instructions. Patient is ambulatory with steady gait. Refuses offer of halfway placement. Patient given list of available shelters in surrounding area. Pt ambulated with cane. Denies pain.
[2021-05-12 01:57] VITALS: BP 120/75
== END 2021-05-12 01:57 | disposition home or self-care (01) ==
LOC: ER 22:10
DX: F41.9 Anxiety disorder, unspecified (principal); Z59.00 Homelessness unspecified; Z88.8 Allergy status to other drugs, medicaments and biological substances
CPT/HCPCS: 99282; Q0163; A4663

== ENCOUNTER 2021-05-15 22:07 | Emergency (ER) | payer MEDICAID ==
[~2021-05-15] VITALS: Ht 170.2 cm; Wt 63.5 kg
--- NOTE | 2021-05-15 22:15 | NUR ---
TANYA AGEE AT BEDSIDE FOR MSE.
[2021-05-15] MEDS ORDERED: IBUPROFEN 600 MG TABLET PO ONE (22:30)
[2021-05-15] MEDS ORDERED: IBUPROFEN 600 MG TABLET ONE (22:38)
--- NOTE | 2021-05-16 00:21 | NUR ---
Patient given written and verbal discharge instructions. Patient verbalizes understanding of instructions. Patient is ambulatory with steady gait. Refuses offer of retirement placement. Patient given list of available shelters in surrounding area. Pt ambulated with steady gait. Denies pain.
[2021-05-16 00:24] VITALS: BP 126/83
== END 2021-05-16 00:25 | disposition home or self-care (01) ==
LOC: ER 22:09
DX: G89.29 Other chronic pain (principal); M79.10 Myalgia, unspecified site; Z88.8 Allergy status to other drugs, medicaments and biological substances; Z59.00 Homelessness unspecified; Z79.1 Long term (current) use of non-steroidal anti-inflammatories (NSAID); Z79.899 Other long term (current) drug therapy
CPT/HCPCS: A4663

== ENCOUNTER 2021-05-26 21:46 | Emergency (ER) | payer MEDICAID ==
[~2021-05-26] VITALS: Ht 170.2 cm; Wt 70.3 kg
--- NOTE | 2021-05-26 22:02 | NUR ---
Dr Leger at bedside for MSE.
[2021-05-26] MEDS ORDERED: LORAZEPAM 0.5 MG TABLET PO ONE (22:15)
[2021-05-26] MEDS ORDERED: LORAZEPAM 0.5 MG TABLET ONE (22:17)
[2021-05-26 22:44] VITALS: BP 133/69
--- NOTE | 2021-05-26 22:44 | NUR ---
Patient given written and verbal discharge instructions. Patient verbalizes understanding of instructions. Patient is ambulatory with steady gait. Refuses offer of alf placement. Patient given list of available shelters in surrounding area. pt ambulates with cane. denies pain.
== END 2021-05-26 22:45 | disposition home or self-care (01) ==
LOC: ER 21:46
DX: F41.9 Anxiety disorder, unspecified (principal); Z59.00 Homelessness unspecified; F25.9 Schizoaffective disorder, unspecified; Z91.14 Patient's other noncompliance with medication regimen
CPT/HCPCS: A4663

== ENCOUNTER 2021-05-28 22:16 | Emergency (ER) | payer MEDICAID ==
[~2021-05-28] VITALS: Ht 167.6 cm; Wt 66.2 kg
[2021-05-28 23:14] LABS: *BILIRUBIN,URIN NEGATIVE (NEGATIVE); *CLARITY,URINE CLEAR (CLEAR); *COLOR,URINE YELLOW (YELLOW); *KETONES,URINE NEGATIVE (NEGATIVE); *UROBILINOGEN,URINE 0.2 E.U./dl (NORMAL); LEUKOCYTE ESTERASE ,URINE NEGATIVE (NEGATIVE); NITRITE, URINE NEGATIVE (NEGATIVE); UGLUCOSE NEGATIVE (NEGATIVE)
[2021-05-28 23:22] LABS: *BLOOD, URINE TRACE (NEGATIVE)
[2021-05-28 23:23] LABS: BACTERIA,URINE NONE SEEN /HPF (NONE SEEN); SQUAMOUS EPITHELIAL CELL,UR FEW /HPF (NONE SEEN); WBC,URINE 0-3 /HPF (0-3)
--- NOTE | 2021-05-29 06:00 | NUR ---
Patient left before recieving ACI. Left with no distress noted.
== END 2021-05-29 06:00 | disposition home or self-care (01) ==
LOC: ER 22:18
DX: R30.0 Dysuria (principal); F25.9 Schizoaffective disorder, unspecified; Z59.00 Homelessness unspecified; Z88.8 Allergy status to other drugs, medicaments and biological substances; R03.0 Elevated blood-pressure reading, without diagnosis of hypertension
CPT/HCPCS: A4663

== ENCOUNTER 2021-06-09 20:30 | Emergency (ER) | payer MEDICAID ==
[~2021-06-09] VITALS: Ht 167.6 cm; Wt 66.2 kg
--- NOTE | 2021-06-09 21:16 | NUR ---
Dr. Walsh at bedside for MSE.
--- NOTE | 2021-06-09 22:11 | NUR ---
Ultrasound at bedside.
[2021-06-09 22:16] LABS: *BILIRUBIN,URIN NEGATIVE (NEGATIVE); *BLOOD, URINE 1+ (NEGATIVE); *CLARITY,URINE CLEAR (CLEAR); *COLOR,URINE YELLOW (YELLOW); *KETONES,URINE TRACE (NEGATIVE); LEUKOCYTE ESTERASE ,URINE NEGATIVE (NEGATIVE); NITRITE, URINE NEGATIVE (NEGATIVE); UGLUCOSE NEGATIVE (NEGATIVE)
[2021-06-09 22:23] LABS: BACTERIA,URINE NONE SEEN /HPF (NONE SEEN); SQUAMOUS EPITHELIAL CELL,UR MODERATE /HPF (NONE SEEN); WBC,URINE 0-3 /HPF (0-3)
[2021-06-10] MEDS ORDERED: IBUP-1955 PO (00:39)
--- NOTE | 2021-06-10 01:14 | NUR ---
Patient given written and verbal discharge instructions. Patient verbalizes understanding of instructions. Patient is ambulatory with steady gait. Refuses offer of senior care placement. Patient given list of available shelters in surrounding area. Pt has taxi voucher in hand, VSS, no acute signs of distress, all belongings taken.
[2021-06-10 01:15] VITALS: BP 120/78
== END 2021-06-10 01:16 | disposition home or self-care (01) ==
LOC: ER 20:34
DX: M79.652 Pain in left thigh (principal); Z59.00 Homelessness unspecified; F25.9 Schizoaffective disorder, unspecified; Z79.899 Other long term (current) drug therapy; Z91.14 Patient's other noncompliance with medication regimen
CPT/HCPCS: 36415; A4663

== ENCOUNTER 2021-06-17 03:07 | Emergency (ER) | payer MEDICAID ==
[~2021-06-17] VITALS: Ht 157.5 cm; Wt 73.5 kg
--- NOTE | 2021-06-17 03:50 | NUR ---
pt in room for lower extremity swelling.
--- NOTE | 2021-06-17 03:54 | NUR ---
Dr. De La Fuente at bedside for MSE.
[2021-06-17 04:08] LABS: HEMATOCRIT 33.9 % (31.2-41.9); MEAN CORPUSCULAR HEMOGLOBIN 26.6 uug (24.7-32.8); MEAN CORPUSCULAR VOLUME 79.9 fL (75.5-95.3); PLATELET COUNT (AUTO) 212 K/uL (179-408)
[2021-06-17 04:15] LABS: NEUTROPHILS % (MANUAL) 0 % (42-75)
[2021-06-17 04:17] LABS: CREATININE 0.6 mg/dL (0.6-1.3); POTASSIUM 3.8 mmol/L (3.5-5.1)
--- NOTE | 2021-06-17 06:38 | NUR ---
Patient given written and verbal discharge instructions. Patient verbalizes understanding of instructions. Patient is ambulatory with steady gait. Refuses offer of custodial placement. Patient given list of available shelters in surrounding area.
[2021-06-17 06:40] VITALS: BP 140/70
== END 2021-06-17 06:41 | disposition home or self-care (01) ==
LOC: ER 03:10
DX: R60.0 Localized edema (principal); F29 Unspecified psychosis not due to a substance or known physiological condition; F25.9 Schizoaffective disorder, unspecified; Z88.8 Allergy status to other drugs, medicaments and biological substances; Z59.02 Unsheltered homelessness; Z91.14 Patient's other noncompliance with medication regimen
CPT/HCPCS: 36415; 70030-TC; 85025; A4663

== ENCOUNTER 2021-07-03 00:55 | Emergency (ER) | payer MEDICAID ==
[~2021-07-03] VITALS: Ht 157.5 cm; Wt 73.5 kg
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
[2021-07-03] MEDS ORDERED: NAPR-1164 PO (04:11)
--- NOTE | 2021-07-03 04:15 | NUR ---
Patient discharged to home in stable condition. Written and verbal after care instructions given. Patient verbalizes understanding of instructions. Stressed follow up or return to ER for worsening s/s. Patient is A/Ox4, no CP, no SOB, no distress noted. Patient is able to ambulate on steady gait.
[2021-07-03 04:44] VITALS: BP 120/63
== END 2021-07-03 04:15 | disposition home or self-care (01) ==
LOC: ER 00:55
DX: S33.5XXA Sprain of ligaments of lumbar spine, initial encounter (principal); V78.1XXA Passenger on bus injured in noncollision transport accident in nontraffic accident, initial encounter; Y92.410 Unspecified street and highway as the place of occurrence of the external cause; M79.605 Pain in left leg; M79.604 Pain in right leg; F25.9 Schizoaffective disorder, unspecified; Z88.8 Allergy status to other drugs, medicaments and biological substances; Z59.00 Homelessness unspecified; Z91.14 Patient's other noncompliance with medication regimen
CPT/HCPCS: A4663

== ENCOUNTER 2021-07-12 06:43 | Emergency (ER) | payer MEDICAID ==
[~2021-07-12] VITALS: Ht 157.5 cm; Wt 72.6 kg
[~2021-07-12 06:43] MED LIST changes: +NAPR-1164 PO
--- NOTE | 2021-07-12 07:00 | NUR ---
Patient ambulatory, complaints of both eyes irritation for a week, no redness, discharge noted. Vitals stable.
--- NOTE | 2021-07-12 07:30 | NUR ---
MD at bedside, medical screening exam in process.
[2021-07-12 08:38] VITALS: BP 121/80
== END 2021-07-12 08:30 | disposition home or self-care (01) ==
LOC: ER 06:52
DX: H53.8 Other visual disturbances (principal); Z59.00 Homelessness unspecified; F25.9 Schizoaffective disorder, unspecified; R60.0 Localized edema; Z91.14 Patient's other noncompliance with medication regimen; Z88.8 Allergy status to other drugs, medicaments and biological substances
CPT/HCPCS: A4663

== ENCOUNTER 2021-07-14 05:44 | Emergency (ER) | payer MEDICAID ==
[~2021-07-14] VITALS: Ht 165.1 cm; Wt 63.5 kg
--- NOTE | 2021-07-14 06:35 | NUR ---
Dr Díaz at bedside, MSE in progress
--- NOTE | 2021-07-14 07:31 | NUR ---
DR. CAN IN THE ROOM FOR FURTHER EVALUATION. ORDERED EKG TO BE DONE.
--- NOTE | 2021-07-14 07:52 | NUR ---
PATIENT GIVEN DISCHARGE INSTRUCTIONS UNDERSTOOD AND PRESCRIPTION.
[2021-07-14] MEDS ORDERED: OMEP40CA21 PO (08:00)
[2021-07-14] MEDS ORDERED: IBUP-1955 PO (08:00)
[2021-07-14] MEDS ORDERED: GABA300C PO (08:00)
== END 2021-07-14 08:07 | disposition home or self-care (01) ==
LOC: ER 06:00
DX: R14.0 Abdominal distension (gaseous) (principal); G89.29 Other chronic pain; M54.9 Dorsalgia, unspecified; Z59.00 Homelessness unspecified; F25.8 Other schizoaffective disorders; Z88.8 Allergy status to other drugs, medicaments and biological substances; H53.8 Other visual disturbances; Z91.19 Patient's noncompliance with other medical treatment and regimen; R94.31 Abnormal electrocardiogram [ECG] [EKG]
CPT/HCPCS: 93005; A4663

== ENCOUNTER 2021-07-22 05:15 | Emergency (ER) | payer MEDICAID ==
[~2021-07-22] VITALS: Ht 170.2 cm; Wt 72.1 kg
[~2021-07-22 05:15] MED LIST changes: +GABA300C PO; +OMEP40CA21 PO
--- NOTE | 2021-07-22 05:23 | NUR ---
pt. bib ra, complaining of general weakness.
--- NOTE | 2021-07-22 05:45 | NUR ---
Dr. Walsh at bedside for mse.
[2021-07-22 06:18] LABS: HEMATOCRIT 36.1 % (31.2-41.9); MEAN CORPUSCULAR HEMOGLOBIN 26.3 uug (24.7-32.8); MEAN CORPUSCULAR VOLUME 78.6 fL (75.5-95.3); PLATELET COUNT (AUTO) 246 K/uL (179-408)
[2021-07-22 06:24] LABS: CARBON DIOXIDE 31 mmol/L (21-32); CHLORIDE 103 mmol/L (98-107); CREATININE 0.7 mg/dL (0.6-1.3); GLUCOSE 140 mg/dL (74-106); POTASSIUM 4.2 mmol/L (3.5-5.1); UREA NITROGEN, BLOOD 17 mg/dL (7-18)
[2021-07-22 06:26] LABS: *BILIRUBIN,URIN NEGATIVE (NEGATIVE); *BLOOD, URINE 1+ (NEGATIVE); *CLARITY,URINE CLEAR (CLEAR); *COLOR,URINE YELLOW (YELLOW); *KETONES,URINE NEGATIVE (NEGATIVE); *UROBILINOGEN,URINE 0.2 E.U./dl (NORMAL); LEUKOCYTE ESTERASE ,URINE NEGATIVE (NEGATIVE); NITRITE, URINE NEGATIVE (NEGATIVE); PH,URINE 6.5 (5.0-8.0); UGLUCOSE TRACE (NEGATIVE)
[2021-07-22 06:33] LABS: ALANINE AMINOTRANSFERASE 19 U/L (14-59); ALKALINE PHOSPHATASE 69 U/L (50-136); ASPARTATE AMINOTRANSFERASE 16 U/L (15-37); BILIRUBIN,DIRECT 0.1 mg/dL (0.0-0.2); BILIRUBIN,TOTAL 0.3 mg/dL (0.2-1.0); ETHANOL < 3 MG/DL (0-0); TOTAL PROTEIN, SERUM 8.6 g/dL (6.4-8.2)
--- NOTE | 2021-07-22 07:00 | NUR ---
Recieved pt in bed, resting w/ both eyes closed, NAD noted.
[2021-07-22 07:34] LABS: *AMPHETAMINE, URINE NEGATIVE (NEGATIVE); *CANNABINOID, URINE NEGATIVE (NEGATIVE); *COCCAINE, URINE NEGATIVE (NEGATIVE); *OPIATE, URINE NEGATIVE (NEGATIVE); *PHENCYCLIDINE SCREEN,URINE NEGATIVE (NEGATIVE)
--- NOTE | 2021-07-22 09:22 | NUR ---
Pt awake a/o, walked to bathroom, states feeling better. Breakfast tray provided.
--- NOTE | 2021-07-22 10:09 | NUR ---
Patient discharged in stable condition. Verbal after care instructions given by Dr Jeffreson. Patient verbalizes understanding of instructions. Stressed follow up or return to ER for worsening s/s. Pt refused to sign paperwork for homeless. Refuses offer of senior care placement. Patient given list of available shelters in surrounding area.
[2021-07-22 10:13] VITALS: BP 122/70
[2021-07-22 14:45] LABS: BACTERIA,URINE MODERATE /HPF (NONE SEEN); CALCIUM CARBONATE CRYSTALS,UR NONE SEEN /HPF (NONE SEEN); CALCIUM OXALATE CRYSTALS,UR NONE SEEN /HPF (NONE SEEN); CALCIUM PHOSPHATE CRYSTALS,UR NONE SEEN /HPF (NONE SEEN); COARSE GRANULAR CASTS,URINE NONE SEEN /LPF; CYSTINE CRYSTALS,URINE NONE SEEN /HPF (NONE SEEN); FATTY CASTS,URINE NONE SEEN /LPF (NONE SEEN); SQUAMOUS EPITHELIAL CELL,UR MODERATE /HPF (NONE SEEN); TRICHOMONAS,URINE NONE SEEN /HPF (NONE SEEN); TRIPLE PHOSPHATE CRYSTAL,UR NONE SEEN /HPF (NONE SEEN); TYROSINE CRYSTAL,URINE NONE SEEN /HPF (NONE SEEN); URIC ACID CRYSTALS,URINE NONE SEEN /HPF (NONE SEEN); URINE AMORPHOUS PHOSPHATES NONE SEEN /HPF; URINE AMORPHOUS URATE NONE SEEN /HPF; WBC,URINE 0-3 /HPF (0-3); YEAST,URINE NONE SEEN /HPF (NONE SEEN)
[2021-07-22 14:46] LABS: MUCUS,URINE NONE SEEN /LPF (0-FEW); RED BLOOD CELL CASTS,URINE NONE SEEN /LPF (NONE SEEN); SPERM,URINE NONE SEEN /HPF (NONE SEEN); WAXY CASTS,URINE NONE SEEN /LPF (NONE SEEN)
== END 2021-07-22 10:15 | disposition home or self-care (01) ==
LOC: ER 05:30
DX: R53.1 Weakness (principal); Z59.00 Homelessness unspecified; F25.9 Schizoaffective disorder, unspecified; Z88.8 Allergy status to other drugs, medicaments and biological substances
CPT/HCPCS: 36415; 84484; 85025; 93005; A4663; G0480

== ENCOUNTER 2021-08-04 03:00 | Emergency (ER) | payer MEDICAID ==
[~2021-08-04] VITALS: Ht 170.2 cm; Wt 65.8 kg
--- NOTE | 2021-08-04 03:37 | NUR ---
Dr. Díaz at bedside, MSE in progress.
[2021-08-04] MEDS ORDERED: IBUPROFEN 400 MG TABLET ONE (03:58)
[2021-08-04] MEDS ORDERED: OLANZAPINE 5 MG TABLET ONE (03:58)
[2021-08-04] MEDS ORDERED: IBUPROFEN 400 MG TABLET PO ONE (04:00)
[2021-08-04] MEDS ORDERED: OLANZAPINE 5 MG TABLET PO ONE (04:00)
--- NOTE | 2021-08-04 04:22 | NUR ---
Lab at bedside
--- NOTE | 2021-08-04 04:32 | NUR ---
XRay at bedside
[2021-08-04 04:39] LABS: HEMATOCRIT 33.4 % (31.2-41.9); MEAN CORPUSCULAR HEMOGLOBIN 26.6 uug (24.7-32.8); MEAN CORPUSCULAR VOLUME 78.9 fL (75.5-95.3); PLATELET COUNT (AUTO) 227 K/uL (179-408)
--- NOTE | 2021-08-04 04:40 | NUR ---
Requested urine sample from patient, states that she does not have to use the restroom at this time.
[2021-08-04 04:48] LABS: CARBON DIOXIDE 28 mmol/L (21-32); CHLORIDE 103 mmol/L (98-107); CREATININE 0.6 mg/dL (0.6-1.3); GLUCOSE 106 mg/dL (74-106); POTASSIUM 3.5 mmol/L (3.5-5.1); UREA NITROGEN, BLOOD 15 mg/dL (7-18)
[2021-08-04 04:52] LABS: ALANINE AMINOTRANSFERASE 19 U/L (14-59); ALKALINE PHOSPHATASE 55 U/L (50-136); ASPARTATE AMINOTRANSFERASE 19 U/L (15-37); BILIRUBIN,DIRECT 0.1 mg/dL (0.0-0.2); BILIRUBIN,TOTAL 0.4 mg/dL (0.2-1.0); TOTAL PROTEIN, SERUM 7.9 g/dL (6.4-8.2)
[2021-08-04 04:55] LABS: THYROID STIMULATING HORMONE 1.739 mIU/mL (0.358-3.740)
--- NOTE | 2021-08-04 05:01 | NUR ---
Patient resting in bed with eyes closed. Breaths equal and nonlabored. No distress noted.
[2021-08-04 05:03] LABS: ETHANOL < 3 MG/DL (0-0)
--- NOTE | 2021-08-04 06:03 | NUR ---
Urine sample provided, taken to lab
--- NOTE | 2021-08-04 07:05 | NUR ---
Report given to Cora NOEL
[2021-08-04 07:16] LABS: *CANNABINOID, URINE NEGATIVE (NEGATIVE); *OPIATE, URINE NEGATIVE (NEGATIVE); *PHENCYCLIDINE SCREEN,URINE NEGATIVE (NEGATIVE)
--- NOTE | 2021-08-04 07:26 | NUR ---
Patient is resting comfortably in bed with eyes closed, NAD noted. Awaiting for UDS for medical clearance.
[2021-08-04 07:40] LABS: *AMPHETAMINE, URINE NEGATIVE (NEGATIVE); *COCCAINE, URINE NEGATIVE (NEGATIVE)
--- NOTE | 2021-08-04 08:00 | NUR ---
Pt is medically cleared by Dr Nogueira.
--- NOTE | 2021-08-04 08:05 | NUR ---
Placed a call to Dori León RN for PET evaulation, ETA 1 hour.
--- NOTE | 2021-08-04 09:03 | NUR ---
Dori León fro PET at the bedside for psych eval. Pt deines SI/HI or hearing voices.
--- NOTE | 2021-08-04 09:07 | NUR ---
Pt was cleared by Dori León to be discharge, ER MD spoke to Dori and pt regarding plan of care.
[2021-08-04 09:19] VITALS: BP 125/70
[2021-08-04 09:30] LABS: *BILIRUBIN,URIN NEGATIVE (NEGATIVE); *CLARITY,URINE CLEAR (CLEAR); *COLOR,URINE YELLOW (YELLOW); *KETONES,URINE NEGATIVE (NEGATIVE); *UROBILINOGEN,URINE 0.2 E.U./dl (NORMAL); LEUKOCYTE ESTERASE ,URINE NEGATIVE (NEGATIVE); NITRITE, URINE NEGATIVE (NEGATIVE); PH,URINE 5.5 (5.0-8.0); UGLUCOSE NEGATIVE (NEGATIVE)
[2021-08-04 09:33] LABS: *BLOOD, URINE TRACE (NEGATIVE)
[2021-08-04 09:44] LABS: BACTERIA,URINE FEW /HPF (NONE SEEN); RBC,URINE 0-3 /HPF (0-3); SQUAMOUS EPITHELIAL CELL,UR FEW /HPF (NONE SEEN); WBC,URINE NONE SEEN /HPF (0-3)
[2021-08-04 12:09] LABS: BAND % (MANUAL) 1 % (0-10); EOSINOPHILS % (MANUAL) 5 % (0-8); LYMPHOCYTES % (MANUAL) 35 % (20-40); MONOCYTES % (MANUAL) 10 % (2-10); NEUTROPHILS % (MANUAL) 49 % (42-75)
== END 2021-08-04 09:20 | disposition home or self-care (01) ==
LOC: ER 03:02
DX: F23 Brief psychotic disorder (principal); F25.9 Schizoaffective disorder, unspecified; Z59.00 Homelessness unspecified; Z82.49 Family history of ischemic heart disease and other diseases of the circulatory system; Z20.822 Contact with and (suspected) exposure to COVID-19; R94.31 Abnormal electrocardiogram [ECG] [EKG]
CPT/HCPCS: 36415; 70030-TC; 71045; 84443; 84484; 85025; 93005; A4663; G0480

== ENCOUNTER 2021-08-06 00:35 | Emergency (ER) | payer SELFPAY ==
[~2021-08-06] VITALS: Ht 170.2 cm; Wt 68.0 kg
--- NOTE | 2021-08-06 01:50 | NUR ---
after being triaged, patient was placed back to waiting room due to no beds available in the ER.
--- NOTE | 2021-08-06 07:40 | NUR ---
pt not available in the waiting room/outside waiting room.
== END 2021-08-06 09:16 | disposition left against medical advice (07) ==
LOC: ER 02:45
DX: Z53.21 Procedure and treatment not carried out due to patient leaving prior to being seen by health care provider (principal)

== ENCOUNTER 2021-09-04 01:38 | Emergency (ER) | payer MEDICAID ==
[~2021-09-04] VITALS: Ht 170.2 cm; Wt 65.8 kg
--- NOTE | 2021-09-04 02:17 | NUR ---
DR. ADAMS AT BEDSIDE, MSE IN PROGRESS.
--- NOTE | 2021-09-04 02:32 | NUR ---
XRAY AT BEDSIDE.
--- NOTE | 2021-09-04 02:35 | NUR ---
LAB AT BEDSIDE.
[2021-09-04 02:59] LABS: HEMATOCRIT 35.5 % (31.2-41.9); MEAN CORPUSCULAR HEMOGLOBIN 28.1 uug (24.7-32.8); MEAN CORPUSCULAR VOLUME 82.5 fL (75.5-95.3); PLATELET COUNT (AUTO) 277 K/uL (179-408)
[2021-09-04 03:10] LABS: CREATININE 0.7 mg/dL (0.6-1.3); POTASSIUM 3.7 mmol/L (3.5-5.1)
[2021-09-04 03:40] LABS: MAGNESIUM 2.6 mg/dL (1.8-2.4)
[2021-09-04] MEDS ORDERED: BISA-79 PO (03:58)
[2021-09-04] MEDS ORDERED: CYAN100096 PO (03:58)
[2021-09-04] MEDS ORDERED: BISA10SU61 RC (03:58)
[2021-09-04] MEDS ORDERED: CYANOCOBALAMIN 1000 MCG/ML VIAL IM ONE (04:00)
[2021-09-04] MEDS ORDERED: CYANOCOBALAMIN 1000 MCG/ML VIAL ONE (04:03)
[2021-09-04 04:32] LABS: BAND % (MANUAL) 2 % (0-10); EOSINOPHILS % (MANUAL) 5 % (0-8); LYMPHOCYTES % (MANUAL) 43 % (20-40); MONOCYTES % (MANUAL) 7 % (2-10); NEUTROPHILS % (MANUAL) 43 % (42-75)
--- NOTE | 2021-09-04 04:50 | NUR ---
Patient discharged to home in stable condition. Written and verbal after care instructions given. Patient verbalizes understanding of instructions. Stressed follow up or return to ER for worsening s/s. Steady gait, denied any pain/discomfort upon discharge.
[2021-09-04 05:49] VITALS: BP 120/84
== END 2021-09-04 05:00 | disposition home or self-care (01) ==
LOC: ER 01:43
DX: K59.00 Constipation, unspecified (principal); E53.8 Deficiency of other specified B group vitamins; E11.9 Type 2 diabetes mellitus without complications; D70.9 Neutropenia, unspecified; F25.9 Schizoaffective disorder, unspecified; Z59.00 Homelessness unspecified; R03.0 Elevated blood-pressure reading, without diagnosis of hypertension
CPT/HCPCS: 36415; 74018; 80048; 82607; 83735; 85007; 85025; 99284; J3420; 70030-TC; A4663

== ENCOUNTER 2021-09-09 00:39 | Emergency (ER) | payer MEDICAID ==
[~2021-09-09] VITALS: Ht 170.2 cm; Wt 65.8 kg
[~2021-09-09 00:39] MED LIST changes: +BISA-79 PO; +BISA10SU61 RC; +CYAN100096 PO; -GABA300C PO; -IBUP-1953 PO; -IBUP-1955 PO; -NAPR-1164 PO; -OMEP40CA21 PO; -ONDA4TAB5 PO
--- NOTE | 2021-09-09 01:42 | NUR ---
pt in room 4b ambulatory, states she has bone problems.
--- NOTE | 2021-09-09 02:10 | NUR ---
Dr. De La Fuente in room for CASEY.
[2021-09-09] MEDS ORDERED: IBUPROFEN 600 MG TABLET ONE (02:12)
[2021-09-09] MEDS ORDERED: IBUP-1955 PO (02:13)
[2021-09-09] MEDS ORDERED: IBUPROFEN 600 MG TABLET PO ONE (02:15)
[2021-09-09 02:29] VITALS: BP 120/50
--- NOTE | 2021-09-09 02:29 | NUR ---
Patient given written and verbal discharge instructions. Patient verbalizes understanding of instructions. Patient is ambulatory with steady gait. Refuses offer of group home placement. Patient given list of available shelters in surrounding area.
== END 2021-09-09 02:29 | disposition home or self-care (01) ==
LOC: ER 00:41
DX: G89.29 Other chronic pain (principal); F25.9 Schizoaffective disorder, unspecified; Z59.00 Homelessness unspecified; Z91.14 Patient's other noncompliance with medication regimen
CPT/HCPCS: A4663

== ENCOUNTER 2021-09-13 01:41 | Emergency (ER) | payer MEDICAID ==
[~2021-09-13] VITALS: Ht 170.2 cm; Wt 65.8 kg
[~2021-09-13 01:41] MED LIST changes: +IBUP-1955 PO
--- NOTE | 2021-09-13 06:47 | NUR ---
Patient discharged to home in stable condition. Written and verbal after care instructions given. Patient verbalizes understanding of instructions. Stressed follow up or return to ER for worsening s/s. Steady gait.
[2021-09-13 06:48] VITALS: BP 137/88
== END 2021-09-13 06:48 | disposition home or self-care (01) ==
LOC: ER 01:43
DX: H53.451 Other localized visual field defect, right eye (principal); Z59.00 Homelessness unspecified; F25.9 Schizoaffective disorder, unspecified
CPT/HCPCS: A4663

== ENCOUNTER 2021-09-18 02:40 | Emergency (ER) | payer MEDICAID ==
[~2021-09-18] VITALS: Ht 170.2 cm; Wt 65.8 kg
--- NOTE | 2021-09-18 06:53 | NUR ---
Patient left without being seen by ERMD.
== END 2021-09-18 06:53 | disposition left against medical advice (07) ==
LOC: ER 02:43
DX: Z53.21 Procedure and treatment not carried out due to patient leaving prior to being seen by health care provider (principal)

== ENCOUNTER 2021-09-22 23:41 | Emergency (ER) | payer MEDICAID ==
[~2021-09-22] VITALS: Ht 162.6 cm; Wt 65.8 kg
--- NOTE | 2021-09-23 04:48 | NUR ---
pt ambulated to room 4a, pt states she is unsure what is wrong.
[2021-09-23] MEDS ORDERED: CYAN-51 PO (05:05)
[2021-09-23 05:09] VITALS: BP 122/66
--- NOTE | 2021-09-23 05:09 | NUR ---
Patient given written and verbal discharge instructions. Patient verbalizes understanding of instructions. Patient is ambulatory with steady gait. Refuses offer of residential placement. Patient given list of available shelters in surrounding area.
== END 2021-09-23 05:10 | disposition home or self-care (01) ==
LOC: ER 23:44
DX: G89.29 Other chronic pain (principal); Z91.14 Patient's other noncompliance with medication regimen; M25.522 Pain in left elbow; E53.8 Deficiency of other specified B group vitamins; F29 Unspecified psychosis not due to a substance or known physiological condition; Z59.00 Homelessness unspecified; F25.9 Schizoaffective disorder, unspecified
CPT/HCPCS: A4663

== ENCOUNTER 2021-09-26 02:46 | Emergency (ER) | payer MEDICAID ==
[~2021-09-26] VITALS: Ht 162.6 cm; Wt 67.1 kg
[~2021-09-26 02:46] MED LIST changes: +CYAN-51 PO
--- NOTE | 2021-09-26 04:15 | NUR ---
DR. CROWLEY AT BEDSIDE, MSE IN PROGRESS.
[2021-09-26 05:41] VITALS: BP 140/70
--- NOTE | 2021-09-26 05:41 | NUR ---
Patient given written and verbal discharge instructions. Patient verbalizes understanding of instructions. Patient is ambulatory with steady gait. Refuses offer of long term placement. Patient given list of available shelters in surrounding area. Steady gait.
== END 2021-09-26 05:42 | disposition home or self-care (01) ==
LOC: ER 02:48
DX: M79.641 Pain in right hand (principal); F25.9 Schizoaffective disorder, unspecified; Z59.00 Homelessness unspecified; M19.90 Unspecified osteoarthritis, unspecified site; Z87.81 Personal history of (healed) traumatic fracture
CPT/HCPCS: A4663

== ENCOUNTER 2021-10-01 01:17 | Emergency (ER) | payer BC, MEDICAID ==
[~2021-10-01] VITALS: Ht 162.6 cm; Wt 67.1 kg
[2021-10-01 02:14] VITALS: BP 130/70
== END 2021-10-01 02:14 | disposition home or self-care (01) ==
LOC: ER 01:20
DX: M79.89 Other specified soft tissue disorders (principal); M20.42 Other hammer toe(s) (acquired), left foot; Z59.00 Homelessness unspecified; F25.9 Schizoaffective disorder, unspecified
CPT/HCPCS: 73630; A4663

== ENCOUNTER 2021-10-04 01:15 | Emergency (ER) | payer BC, OTHER ==
[~2021-10-04] VITALS: Ht 162.6 cm; Wt 67.1 kg
--- NOTE | 2021-10-04 06:30 | NUR ---
Patient placed in room 5a at this time.
--- NOTE | 2021-10-04 09:31 | NUR ---
Patient is resting comfortably in bed with eyes closed. PATIENT IS PAIN FREE AT THIS TIME. Patient is waiting for disposition.
[2021-10-04] MEDS ORDERED: HYDR15CR41 TP (12:44)
--- NOTE | 2021-10-04 12:51 | NUR ---
Patient discharged to home in stable condition with steady gait, using her own cane. Written and verbal after care instructions given. Patient verbalized understanding and compliance of instructions. Stressed follow up with her primary doctor or return to ER for worsening s/s.
== END 2021-10-04 12:51 | disposition home or self-care (01) ==
LOC: ER 01:20
DX: M79.602 Pain in left arm (principal); R21 Rash and other nonspecific skin eruption; Z59.00 Homelessness unspecified; F25.9 Schizoaffective disorder, unspecified; F31.9 Bipolar disorder, unspecified; Z86.39 Personal history of other endocrine, nutritional and metabolic disease; F10.10 Alcohol abuse, uncomplicated; Z88.8 Allergy status to other drugs, medicaments and biological substances
CPT/HCPCS: A4663

== ENCOUNTER 2021-10-06 02:52 | Emergency (ER) | payer OTHER ==
[~2021-10-06] VITALS: Ht 162.6 cm; Wt 67.1 kg
[~2021-10-06 02:52] MED LIST changes: +HYDR15CR41 TP
--- NOTE | 2021-10-06 04:17 | NUR ---
Dr. Leger at bedside for MSE.
--- NOTE | 2021-10-06 04:44 | NUR ---
pt is lying on the gourney unable to express any medical complaints, denies any pain.
[2021-10-06 06:57] VITALS: BP 130/80
== END 2021-10-06 06:57 | disposition home or self-care (01) ==
LOC: ER 02:54
DX: F25.9 Schizoaffective disorder, unspecified (principal); F60.3 Borderline personality disorder; Z59.00 Homelessness unspecified; F22 Delusional disorders
CPT/HCPCS: A4663

== ENCOUNTER 2021-10-26 01:54 | Emergency (ER) | payer MEDICARE, MEDICAID ==
[~2021-10-26] VITALS: Ht 170.2 cm; Wt 71.7 kg
--- NOTE | 2021-10-26 02:30 | NUR ---
pt in room 5a states she has a rash on lower extrem and pain on urination.
[2021-10-26 04:04] LABS: *BILIRUBIN,URIN NEGATIVE (NEGATIVE); *BLOOD, URINE TRACE (NEGATIVE); *CLARITY,URINE CLEAR (CLEAR); *COLOR,URINE YELLOW (YELLOW); *KETONES,URINE NEGATIVE (NEGATIVE); *UROBILINOGEN,URINE 0.2 E.U./dl (NORMAL); LEUKOCYTE ESTERASE ,URINE NEGATIVE (NEGATIVE); NITRITE, URINE NEGATIVE (NEGATIVE); PH,URINE 5.5 (5.0-8.0); UGLUCOSE NEGATIVE (NEGATIVE)
[2021-10-26 04:05] LABS: BACTERIA,URINE NONE SEEN /HPF (NONE SEEN); SQUAMOUS EPITHELIAL CELL,UR FEW /HPF (NONE SEEN); WBC,URINE 0-3 /HPF (0-3)
--- NOTE | 2021-10-26 04:21 | NUR ---
Patient given written and verbal discharge instructions. Patient verbalizes understanding of instructions. Patient is ambulatory with steady gait. Refuses offer of long term placement. Patient given list of available shelters in surrounding area.
[2021-10-26 04:23] VITALS: BP 123/67
== END 2021-10-26 04:23 | disposition home or self-care (01) ==
LOC: ER 02:36
DX: R30.0 Dysuria (principal); R31.29 Other microscopic hematuria; Z59.00 Homelessness unspecified; F25.9 Schizoaffective disorder, unspecified
CPT/HCPCS: A4663

== ENCOUNTER 2021-10-27 18:22 | Emergency (ER) | payer MEDICARE, OTHER ==
[~2021-10-27] VITALS: Ht 165.1 cm; Wt 71.7 kg
[2021-10-27] MEDS ORDERED: ACETAMINOPHEN 325 MG TABLET ONE (21:44)
[2021-10-27] MEDS ORDERED: IBUPROFEN 600 MG TABLET ONE (21:44)
[2021-10-27] MEDS ORDERED: IBUPROFEN 600 MG TABLET PO ONE (21:45)
[2021-10-27] MEDS ORDERED: ACETAMINOPHEN 325 MG TABLET PO ONE (21:45)
== END 2021-10-28 00:10 | disposition home or self-care (01) ==
LOC: ER 18:22
DX: M79.602 Pain in left arm (principal); M79.601 Pain in right arm; Z59.00 Homelessness unspecified
CPT/HCPCS: A4663

== ENCOUNTER 2021-11-03 00:19 | Emergency (ER) | payer MEDICARE, BC | END 2021-11-03 02:42 | disposition left against medical advice (07) | LOC: ER 02:15 | DX: Z53.21 Procedure and treatment not carried out due to patient leaving prior to being seen by health care provider (principal) ==

== ENCOUNTER 2021-11-10 01:55 | Emergency (ER) | payer MEDICARE, BC ==
[~2021-11-10] VITALS: Ht 170.2 cm; Wt 71.7 kg
--- NOTE | 2021-11-10 07:00 | NUR ---
Dr. Mitchell at bedside for MSE.
--- NOTE | 2021-11-10 07:56 | NUR ---
Patient given written and verbal discharge instructions. Patient verbalizes understanding of instructions. Patient is ambulatory with steady gait. Refuses offer of custodial placement. Patient given list of available shelters in surrounding area. Patient out of ER with steady gait, VSS, no acute signs of distress, all belongings taken.
[2021-11-10 07:58] VITALS: BP 126/59
== END 2021-11-10 08:01 | disposition home or self-care (01) ==
LOC: ER 01:57
DX: M79.601 Pain in right arm (principal); F25.9 Schizoaffective disorder, unspecified
CPT/HCPCS: A4663

== ENCOUNTER 2021-11-14 23:21 | Emergency (ER) | payer BC, MEDICARE ==
[~2021-11-14] VITALS: Ht 165.1 cm; Wt 71.2 kg
--- NOTE | 2021-11-15 06:21 | NUR ---
Brian palma without being seen by ER MD.
== END 2021-11-15 06:22 | disposition left against medical advice (07) ==
LOC: ER 23:24
DX: Z53.21 Procedure and treatment not carried out due to patient leaving prior to being seen by health care provider (principal)

== ENCOUNTER 2021-11-19 21:43 | Emergency (ER) | payer MEDICARE, BC ==
[~2021-11-19] VITALS: Ht 165.1 cm; Wt 71.7 kg
--- NOTE | 2021-11-19 22:10 | NUR ---
AFTER BEING TRIAGED, PATIENT WAS PLACED BAKC IN WAITING ROOM DUE TO NO BEDS AVAILABLE IN THE ER AT THIS TIME.
[2021-11-20] MEDS ORDERED: NAPROXEN 500 MG TABLET ONE (00:06)
[2021-11-20] MEDS ORDERED: CYAN-51 PO (00:06)
[2021-11-20] MEDS ORDERED: CYANOCOBALAMIN 1000 MCG/ML VIAL ONE (00:06)
[2021-11-20] MEDS ORDERED: NAPR-1164 PO (00:06)
[2021-11-20] MEDS ORDERED: CYANOCOBALAMIN 1000 MCG/ML VIAL IM ONE (00:15)
[2021-11-20] MEDS ORDERED: NAPROXEN 500 MG TABLET PO ONE (00:15)
[2021-11-20 00:34] VITALS: BP 130/80
== END 2021-11-20 00:35 | disposition home or self-care (01) ==
LOC: ER 21:43
DX: G89.29 Other chronic pain (principal); M79.605 Pain in left leg; M79.604 Pain in right leg; E53.8 Deficiency of other specified B group vitamins; M79.602 Pain in left arm; M79.601 Pain in right arm; F25.9 Schizoaffective disorder, unspecified; Z59.00 Homelessness unspecified
CPT/HCPCS: 99283; J3420; A4663

== ENCOUNTER 2021-12-04 02:03 | Emergency (ER) | payer MEDICARE, OTHER ==
[~2021-12-04] VITALS: Ht 165.1 cm; Wt 72.6 kg
[~2021-12-04 02:03] MED LIST changes: +NAPR-1164 PO
--- NOTE | 2021-12-04 06:48 | NUR ---
pt in room 4a states she has skin irritation and wants to see a social media assistant. Dr. Mcgarry was in room for CASEY.
[2021-12-04] MEDS ORDERED: CAMP85GE TP (07:01)
== END 2021-12-04 07:30 | disposition home or self-care (01) ==
LOC: ER 02:07
DX: L85.3 Xerosis cutis (principal); Z59.02 Unsheltered homelessness; F25.9 Schizoaffective disorder, unspecified; Z88.8 Allergy status to other drugs, medicaments and biological substances
CPT/HCPCS: A4663

== ENCOUNTER 2021-12-29 23:18 | Emergency (ER) | payer MEDICARE, BC ==
[~2021-12-29 23:18] MED LIST changes: +CAMP85GE TP
--- NOTE | 2021-12-30 07:23 | NUR ---
Pt was out of waiting room. Pt was not outside of the hospital waiting room. Pt left.
== END 2021-12-30 08:14 | disposition left against medical advice (07) ==
LOC: ER 23:25
DX: Z53.21 Procedure and treatment not carried out due to patient leaving prior to being seen by health care provider (principal)

== ENCOUNTER 2022-01-03 22:21 | Emergency (ER) | payer MEDICARE, BC ==
[~2022-01-03] VITALS: Ht 165.1 cm; Wt 72.6 kg
--- NOTE | 2022-01-03 22:37 | NUR ---
Pt came into ER with NAD noted. Ambulatory with steady gait. A/O x2.
--- NOTE | 2022-01-03 22:52 | NUR ---
Dr. De La Fuente at bedside. MSE in progress.
[2022-01-03 23:45] LABS: HEMATOCRIT 31.3 % (31.2-41.9); MEAN CORPUSCULAR HEMOGLOBIN 27.3 uug (24.7-32.8); MEAN CORPUSCULAR VOLUME 80.6 fL (75.5-95.3); PLATELET COUNT (AUTO) 253 K/uL (179-408)
[2022-01-04 00:12] LABS: CREATININE 0.7 mg/dL (0.6-1.3); POTASSIUM 3.6 mmol/L (3.5-5.1)
[2022-01-04 00:23] LABS: BILIRUBIN,DIRECT 0.1 mg/dL (0.0-0.2); BILIRUBIN,TOTAL 0.3 mg/dL (0.2-1.0); TOTAL PROTEIN, SERUM 7.5 g/dL (6.4-8.2)
[2022-01-04 00:43] LABS: MAGNESIUM 2.1 mg/dL (1.8-2.4)
--- NOTE | 2022-01-04 01:35 | NUR ---
Patient discharged in stable condition. A/O x2. NAD noted. Ambulatory with cane. All belongings with patient. Written and verbal after care instructions given. Patient verbalizes understanding of instructions. Stressed follow up or return to ER for worsening s/s.
[2022-01-04 01:40] VITALS: BP 130/81
[2022-01-04 08:13] LABS: BAND % (MANUAL) 3 % (0-10); EOSINOPHILS % (MANUAL) 11 % (0-8); LYMPHOCYTES % (MANUAL) 38 % (20-40); MONOCYTES % (MANUAL) 18 % (2-10); NEUTROPHILS % (MANUAL) 30 % (42-75)
== END 2022-01-04 01:35 | disposition home or self-care (01) ==
LOC: ER 22:21
DX: M25.50 Pain in unspecified joint (principal); D51.9 Vitamin B12 deficiency anemia, unspecified; H53.8 Other visual disturbances; R60.0 Localized edema; F25.9 Schizoaffective disorder, unspecified; Z59.00 Homelessness unspecified; D72.819 Decreased white blood cell count, unspecified; Z88.8 Allergy status to other drugs, medicaments and biological substances
CPT/HCPCS: 36415; 70030-TC; 83735; 85025; A4663

== ENCOUNTER 2022-01-30 22:07 | Emergency (ER) | payer MEDICARE, BC ==
[~2022-01-30] VITALS: Ht 167.6 cm; Wt 68.0 kg
--- NOTE | 2022-01-31 02:35 | NUR ---
DR ADAMS INTO EVAL PATIENT.
[2022-01-31] MEDS ORDERED: KETOROLAC TROMETHAMINE 60 MG INJ IM ONE (02:45)
[2022-01-31] MEDS ORDERED: CYANOCOBALAMIN 1000 MCG/ML VIAL IM ONE (02:45)
[2022-01-31] MEDS ORDERED: NAPR500T6 PO (02:45)
[2022-01-31] MEDS ORDERED: KETOROLAC TROMETHAMINE 30 MG INJ IM ONE (03:15)
[2022-01-31] MEDS ORDERED: CYANOCOBALAMIN 1000 MCG/ML VIAL ONE (03:20)
[2022-01-31] MEDS ORDERED: KETOROLAC TROMETHAMINE 30 MG INJ ONE (03:20)
--- NOTE | 2022-01-31 03:31 | NUR ---
Patient discharged to home in stable condition. Written and verbal after care instructions given. Patient verbalizes understanding of instructions. Stressed follow up or return to ER for worsening s/s. A/Ox3. NAD noted. All belongings with patient. ambulatory with a steady gait.
[2022-01-31 03:42] VITALS: BP 132/72
== END 2022-01-31 03:31 | disposition home or self-care (01) ==
LOC: ER 22:07
DX: M79.601 Pain in right arm (principal); E53.8 Deficiency of other specified B group vitamins; Z59.00 Homelessness unspecified; F25.9 Schizoaffective disorder, unspecified
CPT/HCPCS: 99284; 96372 ×2; J3420; J1885; A4663

== ENCOUNTER 2022-02-04 19:18 | Emergency (ER) | payer MEDICARE, BC ==
[~2022-02-04] VITALS: Ht 162.6 cm; Wt 60.8 kg
[~2022-02-04 19:18] MED LIST changes: +NAPR500T6 PO
[2022-02-04] MEDS ORDERED: KETOROLAC TROMETHAMINE 60 MG INJ IM ONE ×2 (21:45→22:22)
[2022-02-04] MEDS ORDERED: IBUP-1955 PO (22:56)
[2022-02-04] MEDS ORDERED: D-ME473S63 PO (22:56)
--- NOTE | 2022-02-04 23:00 | NUR ---
Patient discharged to home in stable condition. Written and verbal after care instructions given. Patient verbalizes understanding of instructions. Stressed follow up or return to ER for worsening s/s. Patient is a/ox4, NAD noted. Patient is able to walk with a cane
[2022-02-04 23:07] VITALS: BP 130/64
== END 2022-02-04 23:00 | disposition home or self-care (01) ==
LOC: ER 19:22
DX: S73.102A Unspecified sprain of left hip, initial encounter (principal); W01.0XXA Fall on same level from slipping, tripping and stumbling without subsequent striking against object, initial encounter; Y92.89 Other specified places as the place of occurrence of the external cause; J06.9 Acute upper respiratory infection, unspecified; Z59.00 Homelessness unspecified; F25.9 Schizoaffective disorder, unspecified
CPT/HCPCS: 99284; 73502; 96372; 72170; J1885; A4663

== ENCOUNTER 2022-02-07 21:19 | Emergency (ER) | payer MEDICARE, BC ==
[~2022-02-07] VITALS: Ht 167.6 cm; Wt 71.4 kg
[~2022-02-07 21:19] MED LIST changes: +D-ME473S63 PO
--- NOTE | 2022-02-07 23:41 | NUR ---
Dr. Leger at bedside for MSE.
[2022-02-07] MEDS ORDERED: IBUPROFEN 600 MG TABLET PO ONE (23:45)
[2022-02-07] MEDS ORDERED: IBUPROFEN 600 MG TABLET ONE (23:52)
--- NOTE | 2022-02-07 23:55 | NUR ---
Pt out of ER for CT.
--- NOTE | 2022-02-08 00:07 | NUR ---
Pt back to ER from CT.
[2022-02-08] MEDS ORDERED: IBUP-1490 PO (00:53)
--- NOTE | 2022-02-08 01:40 | NUR ---
Patient given written and verbal discharge instructions. Patient verbalizes understanding of instructions. Patient is ambulatory with steady gait. Refuses offer of skilled nursing placement. Patient given list of available shelters in surrounding area. Pt provided food per patient request, provided with copy of CT result, no acute signs of distress, all belongings taken, VSS. Pt refuses all other services at this time.
[2022-02-08 01:41] VITALS: BP 124/67
== END 2022-02-08 01:42 | disposition home or self-care (01) ==
LOC: ER 21:23
DX: S39.011A Strain of muscle, fascia and tendon of abdomen, initial encounter (principal); W01.0XXA Fall on same level from slipping, tripping and stumbling without subsequent striking against object, initial encounter; Y92.410 Unspecified street and highway as the place of occurrence of the external cause; F25.9 Schizoaffective disorder, unspecified; Z59.00 Homelessness unspecified; Z88.8 Allergy status to other drugs, medicaments and biological substances
CPT/HCPCS: 72192; A4663

== ENCOUNTER 2022-02-09 20:02 | Emergency (ER) | payer MEDICARE, BC ==
[~2022-02-09] VITALS: Ht 170.2 cm; Wt 68.0 kg
[~2022-02-09 20:02] MED LIST changes: +IBUP-1490 PO
--- NOTE | 2022-02-10 02:24 | NUR ---
Dr Sherwood at bedside, MSE in progress
[2022-02-10 02:59] LABS: CREATININE 0.8 mg/dL (0.6-1.3); HEMATOCRIT 32.9 % (31.2-41.9); MEAN CORPUSCULAR HEMOGLOBIN 28.2 uug (24.7-32.8); MEAN CORPUSCULAR VOLUME 83.3 fL (75.5-95.3); PLATELET COUNT (AUTO) 251 K/uL (179-408); POTASSIUM 3.8 mmol/L (3.5-5.1)
--- NOTE | 2022-02-10 03:00 | NUR ---
Patient is a/ox4, NAD noted. Patient is able to ambulate without assistance
[2022-02-10 03:18] LABS: BAND % (MANUAL) 4 % (0-10); LYMPHOCYTES % (MANUAL) 46 % (20-40); NEUTROPHILS % (MANUAL) 30 % (42-75)
[2022-02-10 03:20] LABS: EOSINOPHILS % (MANUAL) 8 % (0-8); MONOCYTES % (MANUAL) 12 % (2-10)
[2022-02-10] MEDS ORDERED: CEPH500C2 PO (05:23)
--- NOTE | 2022-02-10 06:51 | NUR ---
SBAR to Tram NOEL
[2022-02-10 09:27] VITALS: BP 135/60
[2022-02-11] MEDS ORDERED: NAPR-1164 PO (04:47)
== END 2022-02-10 09:28 | disposition home or self-care (01) ==
LOC: ER 20:14
DX: M25.552 Pain in left hip (principal); M79.602 Pain in left arm; W18.30XA Fall on same level, unspecified, initial encounter; Y93.01 Activity, walking, marching and hiking; Y92.89 Other specified places as the place of occurrence of the external cause; Z86.59 Personal history of other mental and behavioral disorders; Z59.00 Homelessness unspecified; F10.10 Alcohol abuse, uncomplicated
CPT/HCPCS: 70030-TC; 72131; 73090; 73502; 85025; A4663

== ENCOUNTER 2022-02-11 01:22 | Emergency (ER) | payer MEDICARE, BC ==
[~2022-02-11] VITALS: Ht 157.5 cm; Wt 68.0 kg
[~2022-02-11 01:22] MED LIST changes: +CEPH500C2 PO
--- NOTE | 2022-02-11 04:17 | NUR ---
Dr Walsh at bedside MSE in progress
[2022-02-11] MEDS ORDERED: NAPR-1164 PO (04:47)
--- NOTE | 2022-02-11 06:53 | NUR ---
Patient discharged in stable condition. A/O x3. Ambulatory with steady gait. All belongings with patient. Written and verbal after care instructions given. Patient verbalizes understanding of instructions. Stressed follow up or return to ER for worsening s/s.
[2022-02-11 07:22] VITALS: BP 135/60
== END 2022-02-11 06:53 | disposition home or self-care (01) ==
LOC: ER 01:50
DX: S39.011A Strain of muscle, fascia and tendon of abdomen, initial encounter (principal); W18.30XA Fall on same level, unspecified, initial encounter; Y92.89 Other specified places as the place of occurrence of the external cause; F25.9 Schizoaffective disorder, unspecified; Z88.8 Allergy status to other drugs, medicaments and biological substances; Z59.00 Homelessness unspecified
CPT/HCPCS: A4663

== ENCOUNTER 2022-02-12 19:34 | Emergency (ER) | payer MEDICARE, BC ==
[~2022-02-12] VITALS: Ht 165.1 cm; Wt 68.0 kg
[2022-02-13] MEDS ORDERED: KETOROLAC TROMETHAMINE 60 MG INJ IM ONE ×2 (05:21→05:30)
[2022-02-13] MEDS ORDERED: CEPH500C2 PO (07:11)
[2022-02-13] MEDS ORDERED: SULF1TAB48 PO (07:11)
--- NOTE | 2022-02-13 07:57 | NUR ---
PT RECEIVED IN BED FROM OUTGOING NURSE ,ALERT AND ORIENTED,VSS.dISCHARGE ORDER PER MD.PT DENIES PAIN AND DISCONFORT AT THE TIME OF DISCHARGE.INSTRUCTION GIVEN PER HOSPITAL [facility].pT RELEASE AN WILL TAKE A BUS TO GO .
== END 2022-02-13 07:57 | disposition home or self-care (01) ==
LOC: ER 19:50
DX: L03.116 Cellulitis of left lower limb (principal); R60.0 Localized edema; R05.9 Cough, unspecified; M79.652 Pain in left thigh; Z59.00 Homelessness unspecified; F25.9 Schizoaffective disorder, unspecified; F10.21 Alcohol dependence, in remission; Z91.81 History of falling
CPT/HCPCS: 99284; 96372; 93971; 71045; J1885; A4663

== ENCOUNTER 2022-02-17 03:50 | Emergency (ER) | payer MEDICARE, BC ==
[~2022-02-17] VITALS: Ht 165.1 cm; Wt 68.0 kg
[~2022-02-17 03:50] MED LIST changes: +SULF1TAB48 PO
[2022-02-17] MEDS ORDERED: IBUP-1955 PO (06:50)
[2022-02-17 09:52] LABS: MEAN CORPUSCULAR HEMOGLOBIN 26.4 uug (24.7-32.8); MEAN CORPUSCULAR VOLUME 80.9 fL (75.5-95.3); PLATELET COUNT (AUTO) 290 K/uL (179-408)
[2022-02-17 10:14] LABS: CREATININE 0.6 mg/dL (0.6-1.3); POTASSIUM 4.1 mmol/L (3.5-5.1)
--- NOTE | 2022-02-17 10:20 | NUR ---
Instructed pt on use of crutches. Attempted to get pt on crutches, she refused stating she counld't do it.
--- NOTE | 2022-02-17 10:29 | NUR ---
COVID swab collected.and sent to LAB.
[2022-02-17] MEDS ORDERED: REMEDY ESSENTIAL ZINC PASTE 113 GM TP PRN (13:45)
[2022-02-17] MEDS ORDERED: ONDANSETRON 4 MG/2 ML VIAL IV PRN (13:45)
[2022-02-17] MEDS ORDERED: HYDROCODONE/APAP 5-325MG TABLET PO PRN (13:45)
[2022-02-17] MEDS ORDERED: MAGNESIUM HYDROXIDE 30 ML LIQUID UDC PO PRN (13:45)
[2022-02-17] MEDS ORDERED: ACETAMINOPHEN 325 MG TABLET PO PRN (13:45)
--- NOTE | 2022-02-17 19:01 | NUR ---
Patient discharged to [facility] in stable condition. Written and verbal after care instructions given. Patient verbalizes understanding of instructions. Stressed follow up or return to ER for worsening s/s.
--- NOTE | 2022-02-17 19:02 | NUR ---
Report given to transfering monitoring tech. Pt left ER via gurney, all belongings taken w/ pt.
[2022-02-17 19:03] VITALS: BP 141/70
--- NOTE | 2022-02-17 19:54 | NUR ---
Gave phone report to RN at [facility] to which pt was transferred.
[2022-02-18] MEDS ORDERED: PANTOPRAZOLE SODIUM 40 MG TABLET.DR PO SCH (07:00)
== END 2022-02-17 19:04 ==
LOC: ER 03:53
DX: S82.492A Other fracture of shaft of left fibula, initial encounter for closed fracture (principal); W19.XXXA Unspecified fall, initial encounter; Y92.9 Unspecified place or not applicable; Z20.822 Contact with and (suspected) exposure to COVID-19; D72.819 Decreased white blood cell count, unspecified; Z59.00 Homelessness unspecified; F25.9 Schizoaffective disorder, unspecified; Z88.8 Allergy status to other drugs, medicaments and biological substances
CPT/HCPCS: 36415; 73590; 85025

== ENCOUNTER 2022-08-27 02:50 | Emergency (ER) | payer MEDICARE, BC ==
[~2022-08-27] VITALS: Ht 165.1 cm; Wt 68.0 kg
[~2022-08-27 02:50] MED LIST changes: -BISA10SU61 RC; -CAMP85GE TP; -CEPH500C2 PO; +CITA20TA19 PO; -CYAN-51 PO; +CYAN250010 PO; -D-ME473S63 PO; -IBUP-1490 PO; -NAPR-1164 PO; -NAPR500T6 PO; +RISP1TAB97 PO; -SULF1TAB48 PO
--- NOTE | 2022-08-27 03:15 | NUR ---
PT AMB TO RM 5A WITH CANE.
[2022-08-27] MEDS ORDERED: ACETAMINOPHEN 325 MG TABLET PO ONE (03:45)
[2022-08-27] MEDS ORDERED: ACETAMINOPHEN ES 500 MG TABLET ONE (03:49)
[2022-08-27] MEDS ORDERED: ACET325C7 PO (03:58)
--- NOTE | 2022-08-27 06:39 | NUR ---
PT A,A AND O X 4 WITH VSS, NO CP, NO SOB WITH NAD OBSERVED.Patient discharged to home in stable condition. Written and verbal after care instructions given. Patient verbalizes understanding of instructions. Stressed follow up or return to ER for worsening s/s. PT AMB OUT WITH CANE.
[2022-08-27 06:42] VITALS: BP 138/71
== END 2022-08-27 06:43 | disposition home or self-care (01) ==
LOC: ER 02:53
DX: F22 Delusional disorders (principal); R51.9 Headache, unspecified; Z88.8 Allergy status to other drugs, medicaments and biological substances; Z59.00 Homelessness unspecified; Z79.1 Long term (current) use of non-steroidal anti-inflammatories (NSAID); Z79.899 Other long term (current) drug therapy
CPT/HCPCS: A4663; A9150

== ENCOUNTER 2022-08-29 22:21 | Emergency (ER) | payer MEDICARE, BC ==
[~2022-08-29] VITALS: Ht 170.2 cm; Wt 68.0 kg
[~2022-08-29 22:21] MED LIST changes: +ACET325C7 PO
--- NOTE | 2022-08-29 23:34 | NUR ---
Dr. Gutierrez evaluating patient at bedside. MSE in progress.
[2022-08-29] MEDS ORDERED: OLANZAPINE 5 MG TABLET PO ONE (23:45)
[2022-08-29] MEDS ORDERED: OLANZAPINE 5 MG TABLET ONE (23:59)
--- NOTE | 2022-08-30 03:45 | NUR ---
Patient discharged to home in stable condition. Written and verbal after care instructions given. Patient verbalizes understanding of instructions. Stressed follow up or return to ER for worsening s/s. Patient walked out with steady gait.
[2022-08-30 04:20] VITALS: BP 122/68
== END 2022-08-30 04:00 | disposition home or self-care (01) ==
LOC: ER 22:21
DX: F22 Delusional disorders (principal); Z88.8 Allergy status to other drugs, medicaments and biological substances; Z59.00 Homelessness unspecified; Z79.1 Long term (current) use of non-steroidal anti-inflammatories (NSAID); Z79.899 Other long term (current) drug therapy
CPT/HCPCS: A4663

== ENCOUNTER 2022-09-02 22:34 | Emergency (ER) | payer MEDICARE, BC ==
[~2022-09-02] VITALS: Ht 170.2 cm; Wt 68.0 kg
--- NOTE | 2022-09-03 01:05 | NUR ---
Dr Mitchell into eval patient.
[2022-09-03] MEDS ORDERED: OLANZAPINE 5 MG TABLET ONE (01:08)
[2022-09-03] MEDS ORDERED: OLANZAPINE 5 MG TABLET PO ONE (01:15)
--- NOTE | 2022-09-03 01:24 | NUR ---
Patient given written and verbal discharge instructions. Patient verbalizes understanding of instructions. Patient is ambulatory with steady gait. Refuses offer of [facility]pc placement. Patient given list of available shelters in surrounding area.
[2022-09-03 01:26] VITALS: BP 125/72
== END 2022-09-03 01:27 | disposition home or self-care (01) ==
LOC: ER 22:34
DX: R44.3 Hallucinations, unspecified (principal); Z88.8 Allergy status to other drugs, medicaments and biological substances; Z59.00 Homelessness unspecified; Z79.1 Long term (current) use of non-steroidal anti-inflammatories (NSAID); Z79.899 Other long term (current) drug therapy
CPT/HCPCS: A4663

== ENCOUNTER 2022-09-05 19:28 | Emergency (ER) | payer MEDICARE, BC ==
[~2022-09-05] VITALS: Ht 170.2 cm; Wt 68.0 kg
--- NOTE | 2022-09-05 19:42 | NUR ---
Dr. Lopez in room at bedside. MSE in progress.
[2022-09-05] MEDS ORDERED: ACETAMINOPHEN 325 MG TABLET ONE (20:00)
[2022-09-05] MEDS ORDERED: ACETAMINOPHEN 325 MG TABLET PO ONE (20:00)
[2022-09-05 21:27] VITALS: BP 140/70
== END 2022-09-05 21:10 | disposition home or self-care (01) ==
LOC: ER 19:28
DX: G89.29 Other chronic pain (principal); M79.671 Pain in right foot; Z88.8 Allergy status to other drugs, medicaments and biological substances; Z59.00 Homelessness unspecified; Z79.1 Long term (current) use of non-steroidal anti-inflammatories (NSAID); Z79.899 Other long term (current) drug therapy
CPT/HCPCS: 73610; 73630; A4663

== ENCOUNTER 2022-11-17 00:54 | Emergency (ER) | payer MEDICARE, BC ==
[~2022-11-17] VITALS: Ht 170.2 cm; Wt 68.0 kg
[~2022-11-17 00:54] MED LIST changes: -ACET325C7 PO; +ACET325T53 PO; -BISA-79 PO; -CITA20TA19 PO; -CYAN100096 PO; -CYAN250010 PO; +DOXY100T2 PO; +HYDR-4209 PO; -HYDR15CR41 TP; -IBUP-1955 PO; +MULT-1045 PO; +POLY17PO4 PO
[2022-11-17] MEDS ORDERED: ACETAMINOPHEN 325 MG TABLET PO ONE (02:15)
[2022-11-17 02:28] LABS: BASOPHILS % (AUTO) 0.6 % (0.0-2.0); EOSINOPHILS # (AUTO) 0.2 K/uL (0.0-0.7); EOSINOPHILS % (AUTO) 8.3 % (0.0-7.0); HEMATOCRIT 36.5 % (31.2-41.9); HEMOGLOBIN 12.3 g/dL (10.9-14.3); LYMPHOCYTES # (AUTO) 0.8 K/uL (0.8-4.8); LYMPHOCYTES % (AUTO) 31.3 % (20.5-51.5); MEAN CORPUSCULAR HEMOGLOBIN 28.9 uug (24.7-32.8); MEAN CORPUSCULAR HGB CONC 34 g/dL (32.3-35.6); MEAN CORPUSCULAR VOLUME 85.8 fL (75.5-95.3); MONOCYTES # (AUTO) 0.5 K/uL (0.1-1.30); MONOCYTES % (AUTO) 17.7 % (0.0-11.0); NEUTROPHILS # (AUTO) 1.1 K/uL (1.8-8.9); NEUTROPHILS % (AUTO) 42.1 % (38.5-71.5); PLATELET COUNT (AUTO) 178 K/uL (179-408); RED BLOOD CELL COUNT(AUTO) 4.25 MIL/uL (3.63-4.92); RED CELL DISTRIBUTION WIDTH 16.4 % (12.3-17.7); WHITE BLOOD COUNT (AUTO) 2.7 K/uL (3.8-11.8)
[2022-11-17] MEDS ORDERED: ACETAMINOPHEN 325 MG TABLET ONE (02:31)
[2022-11-17 02:32] LABS: DIFFERENTIAL COMMENT 1
[2022-11-17 02:38] LABS: CREATININE 0.9 mg/dL (0.6-1.3); POTASSIUM 3.9 mmol/L (3.5-5.1)
[2022-11-17 02:55] LABS: ALBUMIN 3.6 g/dL (3.4-5.0); BILIRUBIN,TOTAL 0.8 mg/dL (0.2-1.0); TOTAL PROTEIN, SERUM 8.2 g/dL (6.4-8.2)
[2022-11-17 03:17] LABS: BAND % (MANUAL) 2 % (0-10); EOSINOPHILS % (MANUAL) 6 % (0-8); LYMPHOCYTES % (MANUAL) 35 % (20-40); MONOCYTES % (MANUAL) 15 % (2-10)
[2022-11-17 03:20] LABS: NEUTROPHILS % (MANUAL) 42 % (42-75); PLATELET ESTIMATE ADEQUATE
[2022-11-17 06:22] VITALS: BP 153/76; TEMP 98; O2SAT 97
== END 2022-11-17 06:00 | disposition home or self-care (01) ==
LOC: ER 01:00
DX: M79.10 Myalgia, unspecified site (principal); R05.9 Cough, unspecified; R53.83 Other fatigue; R07.89 Other chest pain; Z88.8 Allergy status to other drugs, medicaments and biological substances; Z79.2 Long term (current) use of antibiotics; Z79.899 Other long term (current) drug therapy; Z20.822 Contact with and (suspected) exposure to COVID-19
CPT/HCPCS: 70030-TC; 71045; 85025; A4663

== ENCOUNTER 2022-11-19 21:22 | Emergency (ER) | payer MEDICARE, BC ==
[~2022-11-19] VITALS: Ht 170.2 cm; Wt 68.0 kg
[2022-11-19 22:37] LABS: BASOPHILS % (AUTO) 1.1 % (0.0-2.0); EOSINOPHILS # (AUTO) 0.1 K/uL (0.0-0.7); HEMATOCRIT 33.8 % (31.2-41.9); HEMOGLOBIN 11.3 g/dL (10.9-14.3); LYMPHOCYTES # (AUTO) 0.6 K/uL (0.8-4.8); MEAN CORPUSCULAR HEMOGLOBIN 28.7 uug (24.7-32.8); MEAN CORPUSCULAR HGB CONC 33 g/dL (32.3-35.6); MEAN CORPUSCULAR VOLUME 85.8 fL (75.5-95.3); MONOCYTES # (AUTO) 0.3 K/uL (0.1-1.30); NEUTROPHILS % (AUTO) 48.7 % (38.5-71.5); PLATELET COUNT (AUTO) 188 K/uL (179-408); RED BLOOD CELL COUNT(AUTO) 3.94 MIL/uL (3.63-4.92); RED CELL DISTRIBUTION WIDTH 16.5 % (12.3-17.7); WHITE BLOOD COUNT (AUTO) 2.1 K/uL (3.8-11.8)
[2022-11-19 22:52] LABS: DIFFERENTIAL COMMENT 1; LYMPHOCYTES % (AUTO) 29.2 % (20.5-51.5)
[2022-11-19 23:04] LABS: *BILIRUBIN,URIN NEGATIVE (NEGATIVE); *BLOOD, URINE 1+ (NEGATIVE); *CLARITY,URINE CLEAR (CLEAR); *COLOR,URINE YELLOW (YELLOW); *KETONES,URINE NEGATIVE (NEGATIVE); *PROTEIN,URINE 2+ (NEGATIVE); LEUKOCYTE ESTERASE ,URINE NEGATIVE (NEGATIVE); NITRITE, URINE NEGATIVE (NEGATIVE); UGLUCOSE NEGATIVE (NEGATIVE)
[2022-11-19 23:05] LABS: ALANINE AMINOTRANSFERASE 17 U/L (14-59); ALBUMIN 3.3 g/dL (3.4-5.0); ALKALINE PHOSPHATASE 51 U/L (50-136); ASPARTATE AMINOTRANSFERASE 18 U/L (15-37); BILIRUBIN,DIRECT 0.1 mg/dL (0.0-0.2); BILIRUBIN,TOTAL 0.3 mg/dL (0.2-1.0); CALCIUM 8.2 mg/dL (8.5-10.1); CARBON DIOXIDE 30 mmol/L (21-32); CHLORIDE 103 mmol/L (98-107); CREATININE 0.7 mg/dL (0.6-1.3); GLUCOSE 132 mg/dL (74-106); POTASSIUM 3.9 mmol/L (3.5-5.1); SODIUM SERUM 140 mmol/L (136-145); TOTAL PROTEIN, SERUM 8.3 g/dL (6.4-8.2); UREA NITROGEN, BLOOD 19 mg/dL (7-18)
[2022-11-19 23:06] LABS: BACTERIA,URINE FEW /HPF (NONE SEEN); WBC,URINE 0-3 /HPF (0-3)
[2022-11-19 23:07] LABS: SQUAMOUS EPITHELIAL CELL,UR FEW /HPF (NONE SEEN)
[2022-11-19 23:08] LABS: ETHANOL < 3 MG/DL (0-10)
[2022-11-19 23:09] LABS: *AMPHETAMINE, URINE NEGATIVE (NEGATIVE); *BARBITURATE, URINE NEGATIVE (NEGATIVE); *BENZODIAZEPINE, URINE NEGATIVE (NEGATIVE); *CANNABINOID, URINE NEGATIVE (NEGATIVE); *COCCAINE, URINE NEGATIVE (NEGATIVE); *OPIATE, URINE NEGATIVE (NEGATIVE); *PHENCYCLIDINE SCREEN,URINE NEGATIVE (NEGATIVE); FENTANYL, URINE NEGATIVE (NEGATIVE)
[2022-11-20] MEDS ORDERED: BENZONATATE 100 MG CAPSULE PO ONE (00:15)
[2022-11-20] MEDS ORDERED: KETOROLAC TROMETHAMINE 60 MG INJ IM ONE ×2 (00:15→00:23)
[2022-11-20] MEDS ORDERED: BENZONATATE 100 MG CAPSULE ONE (00:35)
[2022-11-20] MEDS ORDERED: DOXYCYCLINE HYCLATE 100 MG TABLET PO ONE (08:00)
[2022-11-20] MEDS ORDERED: AZITHROMYCIN 250 MG TABLET PO ONE (08:00)
[2022-11-20] MEDS ORDERED: DOXYCYCLINE HYCLATE 100 MG TABLET ONE (08:01)
[2022-11-20] MEDS ORDERED: AZITHROMYCIN 250 MG TABLET ONE (08:01)
[2022-11-20] MEDS ORDERED: AZIT250T PO (08:02)
[2022-11-20] MEDS ORDERED: BENZ-13 PO (08:02)
[2022-11-20] MEDS ORDERED: DOXY100T2 PO (08:02)
[2022-11-20 08:56] VITALS: BP 142/98; TEMP 98.5; O2SAT 98
== END 2022-11-20 08:56 | disposition home or self-care (01) ==
LOC: ER 21:24
DX: J18.9 Pneumonia, unspecified organism (principal); R07.89 Other chest pain; Z88.8 Allergy status to other drugs, medicaments and biological substances; Z59.00 Homelessness unspecified; Z79.2 Long term (current) use of antibiotics; Z79.899 Other long term (current) drug therapy; Z20.822 Contact with and (suspected) exposure to COVID-19
CPT/HCPCS: 80076; 80048; 81001; 85025; 87426; 84484; 36415; 93005; 71045; 99285; 80320; 80307; 96372; J1885; A4663; G0480; Q0144

== ENCOUNTER 2022-11-24 22:16 | Emergency (ER) | payer MEDICARE, BC ==
[~2022-11-24] VITALS: Ht 170.2 cm; Wt 68.0 kg
[~2022-11-24 22:16] MED LIST changes: +AZIT250T PO; +BENZ-13 PO
[2022-11-24] MEDS ORDERED: ACET1TAB23 PO (23:26)
[2022-11-24] MEDS ORDERED: CLIN300C3 PO (23:26)
[2022-11-24] MEDS ORDERED: CLINDAMYCIN HCL 150 MG CAPSULE ONE (23:26)
[2022-11-24] MEDS ORDERED: CLINDAMYCIN HCL 150 MG CAPSULE PO ONE (23:30)
[2022-11-24] MEDS ORDERED: ACETAMINOPHEN/CODEINE 300-30 MG TABLET PO ONE (23:30)
[2022-11-24] MEDS ORDERED: ACETAMINOPHEN/CODEINE 300-30 MG TABLET ONE (23:31)
[2022-11-24 23:36] VITALS: BP 135/72; TEMP 207.5; O2SAT 97
[2022-11-24] MEDS ORDERED: IBUP-1955 PO (23:44)
[2022-11-24] MEDS ORDERED: IBUPROFEN 600 MG TABLET ONE (23:44)
[2022-11-24] MEDS ORDERED: IBUPROFEN 600 MG TABLET PO ONE (23:45)
== END 2022-11-24 23:49 | disposition home or self-care (01) ==
LOC: ER 22:16
DX: M27.2 Inflammatory conditions of jaws (principal); Z88.8 Allergy status to other drugs, medicaments and biological substances; Z59.00 Homelessness unspecified; Z79.2 Long term (current) use of antibiotics; Z79.899 Other long term (current) drug therapy
CPT/HCPCS: A4663

== ENCOUNTER 2022-11-26 23:16 | Emergency (ER) | payer MEDICARE, BC ==
[~2022-11-26] VITALS: Ht 170.2 cm; Wt 68.0 kg
[~2022-11-26 23:16] MED LIST changes: +ACET1TAB23 PO; +CLIN300C3 PO; +IBUP-1955 PO
[2022-11-26 23:30] VITALS: O2SAT 97
== END 2022-11-27 06:18 | disposition left against medical advice (07) ==
LOC: ER 23:17
DX: Z53.21 Procedure and treatment not carried out due to patient leaving prior to being seen by health care provider (principal)
CPT/HCPCS: A4663

== ENCOUNTER 2022-12-04 23:57 | Emergency (ER) | payer MEDICARE, BC ==
[~2022-12-04] VITALS: Ht 165.1 cm; Wt 68.0 kg
[2022-12-05 01:14] VITALS: O2SAT 99
== END 2022-12-05 04:00 | disposition left against medical advice (07) ==
LOC: ER 12-05 00:02
DX: Z53.21 Procedure and treatment not carried out due to patient leaving prior to being seen by health care provider (principal)
CPT/HCPCS: A4663

== ENCOUNTER 2022-12-09 00:48 | Emergency (ER) | payer MEDICARE, BC ==
[~2022-12-09] VITALS: Ht 165.1 cm; Wt 68.0 kg
[2022-12-09] MEDS ORDERED: HYDR-4174 TP (01:19)
[2022-12-09] MEDS ORDERED: CHLO473M5 PO (01:19)
[2022-12-09 03:10] VITALS: BP 130/77; TEMP 97.8; O2SAT 98
== END 2022-12-09 01:48 | disposition home or self-care (01) ==
LOC: ER 00:52
DX: K02.9 Dental caries, unspecified (principal); R21 Rash and other nonspecific skin eruption; Z59.00 Homelessness unspecified; Z88.8 Allergy status to other drugs, medicaments and biological substances; Z79.1 Long term (current) use of non-steroidal anti-inflammatories (NSAID); Z79.2 Long term (current) use of antibiotics; Z79.899 Other long term (current) drug therapy
CPT/HCPCS: A4663

== ENCOUNTER 2022-12-11 00:55 | Emergency (ER) | payer MEDICARE, BC ==
[~2022-12-11] VITALS: Ht 165.1 cm; Wt 68.0 kg
[~2022-12-11 00:55] MED LIST changes: +CHLO473M5 PO; +HYDR-4174 TP
[2022-12-11 01:16] VITALS: O2SAT 98
== END 2022-12-11 05:00 | disposition left against medical advice (07) ==
LOC: ER 00:58
DX: Z53.21 Procedure and treatment not carried out due to patient leaving prior to being seen by health care provider (principal)
CPT/HCPCS: A4663

== ENCOUNTER 2022-12-12 23:26 | Emergency (ER) | payer MEDICARE, BC ==
[~2022-12-12] VITALS: Ht 165.1 cm; Wt 68.0 kg
[2022-12-13] MEDS ORDERED: IBUPROFEN 400 MG TABLET ONE (00:27)
[2022-12-13] MEDS ORDERED: IBUPROFEN 600 MG TABLET PO ONE (00:30)
[2022-12-13 02:07] VITALS: BP 125/68; TEMP 98.5; O2SAT 99
== END 2022-12-13 02:08 | disposition home or self-care (01) ==
LOC: ER 23:40
DX: M25.562 Pain in left knee (principal); J06.9 Acute upper respiratory infection, unspecified; B97.89 Other viral agents as the cause of diseases classified elsewhere; Z88.8 Allergy status to other drugs, medicaments and biological substances; Z59.00 Homelessness unspecified; Z79.1 Long term (current) use of non-steroidal anti-inflammatories (NSAID); Z79.899 Other long term (current) drug therapy; Z79.2 Long term (current) use of antibiotics; Z20.822 Contact with and (suspected) exposure to COVID-19
CPT/HCPCS: A4663

== ENCOUNTER 2022-12-14 01:36 | Emergency (ER) | payer MEDICARE, BC ==
[~2022-12-14] VITALS: Ht 165.1 cm; Wt 68.0 kg
[2022-12-14 09:14] VITALS: BP 143/65; O2SAT 97
== END 2022-12-14 09:15 | disposition home or self-care (01) ==
LOC: ER 01:44
DX: B34.9 Viral infection, unspecified (principal); Z88.8 Allergy status to other drugs, medicaments and biological substances; Z59.00 Homelessness unspecified; Z79.1 Long term (current) use of non-steroidal anti-inflammatories (NSAID); Z79.2 Long term (current) use of antibiotics; Z79.899 Other long term (current) drug therapy; Z20.822 Contact with and (suspected) exposure to COVID-19
CPT/HCPCS: A4663

== ENCOUNTER 2022-12-16 23:54 | Emergency (ER) | payer MEDICARE, BC ==
[~2022-12-16] VITALS: Ht 165.1 cm; Wt 68.0 kg
[2022-12-17] MEDS ORDERED: ACETAMINOPHEN 325 MG TABLET ONE (01:13)
[2022-12-17] MEDS ORDERED: ACETAMINOPHEN 325 MG TABLET PO ONE (01:15)
[2022-12-17 01:41] VITALS: BP 109/61; TEMP 98.2; O2SAT 97
== END 2022-12-17 01:30 | disposition home or self-care (01) ==
LOC: ER 23:56
DX: F28 Other psychotic disorder not due to a substance or known physiological condition (principal); F22 Delusional disorders; G89.29 Other chronic pain; M54.50 Low back pain, unspecified; R60.0 Localized edema; Z88.8 Allergy status to other drugs, medicaments and biological substances; Z59.00 Homelessness unspecified; Z79.1 Long term (current) use of non-steroidal anti-inflammatories (NSAID); Z79.2 Long term (current) use of antibiotics; Z79.899 Other long term (current) drug therapy
CPT/HCPCS: A4663

== ENCOUNTER 2022-12-18 22:00 | Emergency (ER) | payer MEDICARE, BC ==
[~2022-12-18] VITALS: Ht 170.2 cm; Wt 69.4 kg
[2022-12-19] MEDS ORDERED: PENICILLIN V POTASSIUM 500 MG TABLET PO ONE (00:45)
[2022-12-19] MEDS ORDERED: PENICILLIN V POTASSIUM 500 MG TABLET ONE (00:48)
[2022-12-19] MEDS ORDERED: PENI500T PO (00:52)
[2022-12-19 03:26] VITALS: BP 129/61; O2SAT 100
== END 2022-12-19 01:50 | disposition home or self-care (01) ==
LOC: ER 22:01
DX: R68.84 Jaw pain (principal); G89.4 Chronic pain syndrome; F29 Unspecified psychosis not due to a substance or known physiological condition; Z59.00 Homelessness unspecified; Z88.8 Allergy status to other drugs, medicaments and biological substances; Z79.2 Long term (current) use of antibiotics; Z79.899 Other long term (current) drug therapy
CPT/HCPCS: A4663

== ENCOUNTER 2022-12-20 23:23 | Emergency (ER) | payer MEDICARE, BC ==
[~2022-12-20] VITALS: Ht 170.2 cm; Wt 69.4 kg
[~2022-12-20 23:23] MED LIST changes: +PENI500T PO
[2022-12-20] MEDS ORDERED: HYDROCODONE/APAP 5-325MG TABLET PO ONE (23:45)
[2022-12-20] MEDS ORDERED: HYDROCODONE/APAP 5-325MG TABLET ONE (23:52)
[2022-12-21 00:18] VITALS: BP 149/24; TEMP 97.8; O2SAT 98
== END 2022-12-21 00:19 | disposition home or self-care (01) ==
LOC: ER 23:25
DX: G89.4 Chronic pain syndrome (principal); M79.672 Pain in left foot; M79.671 Pain in right foot; F20.9 Schizophrenia, unspecified; Z88.8 Allergy status to other drugs, medicaments and biological substances; Z79.2 Long term (current) use of antibiotics; Z79.899 Other long term (current) drug therapy; Z79.1 Long term (current) use of non-steroidal anti-inflammatories (NSAID)
CPT/HCPCS: 73630; A4663

== ENCOUNTER 2022-12-26 02:39 | Emergency (ER) | payer MEDICARE, BC ==
[2022-12-29] MEDS ORDERED: NAPR-1196 PO (01:41)
[2023-01-02] MEDS ORDERED: AMOX-430 PO (00:28)
[2023-01-02] MEDS ORDERED: IBUP-1955 PO (00:28)
== END 2022-12-26 02:45 | disposition left against medical advice (07) ==
LOC: ER 02:42
DX: Z53.21 Procedure and treatment not carried out due to patient leaving prior to being seen by health care provider (principal)

== ENCOUNTER 2022-12-30 04:49 | Emergency (ER) | payer MEDICARE, BC ==
[~2022-12-30 04:49] MED LIST changes: +NAPR-1196 PO
[2023-01-02] MEDS ORDERED: AMOX-430 PO (00:28)
[2023-01-02] MEDS ORDERED: IBUP-1955 PO (00:28)
== END 2022-12-30 05:10 | disposition left against medical advice (07) ==
LOC: ER 04:51
DX: Z53.21 Procedure and treatment not carried out due to patient leaving prior to being seen by health care provider (principal)

== ENCOUNTER 2022-12-30 21:10 | Emergency (ER) | payer MEDICARE, BC ==
[~2022-12-30] VITALS: Ht 170.2 cm; Wt 69.4 kg
[2022-12-30] MEDS ORDERED: HYDROCORTISONE 1% CREAM 30 GM TUBE TP ONE ×2 (22:19→22:30)
[2022-12-30] MEDS ORDERED: IBUPROFEN 400 MG TABLET ONE (22:19)
[2022-12-30] MEDS ORDERED: HYDROCODONE/APAP 5-325MG TABLET ONE (22:19)
[2022-12-30] MEDS ORDERED: HYDROCODONE/APAP 5-325MG TABLET PO ONE (22:30)
[2022-12-30] MEDS ORDERED: IBUPROFEN 400 MG TABLET PO ONE (22:30)
[2022-12-30 22:50] VITALS: BP 140/60; O2SAT 97
[2023-01-02] MEDS ORDERED: IBUP-1955 PO (00:28)
[2023-01-02] MEDS ORDERED: AMOX-430 PO (00:28)
== END 2022-12-30 22:50 | disposition home or self-care (01) ==
LOC: ER 21:12
DX: R21 Rash and other nonspecific skin eruption (principal); M25.50 Pain in unspecified joint; F20.0 Paranoid schizophrenia; G89.4 Chronic pain syndrome; Z59.00 Homelessness unspecified; Z88.8 Allergy status to other drugs, medicaments and biological substances; Z79.1 Long term (current) use of non-steroidal anti-inflammatories (NSAID); Z79.2 Long term (current) use of antibiotics; Z79.899 Other long term (current) drug therapy
CPT/HCPCS: A4663

== ENCOUNTER 2023-01-07 21:33 | Emergency (ER) | payer MEDICARE, BC ==
[~2023-01-07] VITALS: Ht 170.2 cm; Wt 69.4 kg
[~2023-01-07 21:33] MED LIST changes: +AMOX-430 PO
[2023-01-08] MEDS ORDERED: IBUP-1955 PO (03:36)
[2023-01-08] MEDS ORDERED: IBUPROFEN 600 MG TABLET ONE (03:41)
[2023-01-08] MEDS ORDERED: IBUPROFEN 600 MG TABLET PO ONE (03:45)
[2023-01-08 04:05] LABS: BASOPHILS % (AUTO) 0.5 % (0.0-2.0); EOSINOPHILS # (AUTO) 0.4 K/uL (0.0-0.7); HEMATOCRIT 35.6 % (31.2-41.9); HEMOGLOBIN 11.8 g/dL (10.9-14.3); LYMPHOCYTES # (AUTO) 1.1 K/uL (0.8-4.8); LYMPHOCYTES % (AUTO) 44.2 % (20.5-51.5); MEAN CORPUSCULAR HGB CONC 33 g/dL (32.3-35.6); MEAN CORPUSCULAR VOLUME 84.6 fL (75.5-95.3); MONOCYTES # (AUTO) 0.3 K/uL (0.1-1.30); NEUTROPHILS # (AUTO) 0.7 K/uL (1.8-8.9); PLATELET COUNT (AUTO) 245 K/uL (179-408); RED BLOOD CELL COUNT(AUTO) 4.21 MIL/uL (3.63-4.92); RED CELL DISTRIBUTION WIDTH 17.2 % (12.3-17.7); WHITE BLOOD COUNT (AUTO) 2.4 K/uL (3.8-11.8)
[2023-01-08 04:45] LABS: CREATININE 0.7 mg/dL (0.6-1.3); POTASSIUM 3.5 mmol/L (3.5-5.1)
[2023-01-08 04:55] LABS: DIFFERENTIAL COMMENT 1; EOSINOPHILS % (AUTO) 12.4 % (0.0-7.0)
[2023-01-08 04:56] LABS: NEUTROPHILS % (AUTO) 30.9 % (38.5-71.5)
[2023-01-08] MEDS ORDERED: IV NS 1000 ML 1,000 ML IV ONE ×2 (05:15)
[2023-01-08 06:30] VITALS: BP 116/70; TEMP 98.4; O2SAT 100
== END 2023-01-08 06:30 | disposition home or self-care (01) ==
LOC: ER 21:35
DX: G89.29 Other chronic pain (principal); M54.50 Low back pain, unspecified; M79.606 Pain in leg, unspecified; E86.0 Dehydration; Z59.00 Homelessness unspecified; Z88.8 Allergy status to other drugs, medicaments and biological substances; Z79.1 Long term (current) use of non-steroidal anti-inflammatories (NSAID); Z79.2 Long term (current) use of antibiotics; Z79.899 Other long term (current) drug therapy
CPT/HCPCS: 99283; 96360; 80048; 85025; 36415; J7040; A4606; A4663

== ENCOUNTER 2023-01-09 03:31 | Emergency (ER) | payer MEDICARE, BC ==
[~2023-01-09] VITALS: Ht 170.2 cm; Wt 63.5 kg
[2023-01-09] MEDS ORDERED: HYDROCODONE/APAP 5-325MG TABLET PO ONE (04:15)
[2023-01-09] MEDS ORDERED: HYDROCODONE/APAP 5-325MG TABLET ONE (04:32)
[2023-01-09 06:03] VITALS: BP 138/72; O2SAT 97
== END 2023-01-09 06:03 | disposition home or self-care (01) ==
LOC: ER 03:36
DX: M79.10 Myalgia, unspecified site (principal); F22 Delusional disorders; F32.A Depression, unspecified; Z88.8 Allergy status to other drugs, medicaments and biological substances; Z79.899 Other long term (current) drug therapy; Z79.1 Long term (current) use of non-steroidal anti-inflammatories (NSAID); Z79.2 Long term (current) use of antibiotics
CPT/HCPCS: A4606; A4663

== ENCOUNTER 2023-01-09 22:41 | Emergency (ER) | payer MEDICARE, BC ==
[~2023-01-09] VITALS: Ht 165.1 cm; Wt 69.4 kg
[2023-01-10 05:54] VITALS: BP 148/78; O2SAT 97
== END 2023-01-10 05:55 | disposition home or self-care (01) ==
LOC: ER 22:43
DX: R53.83 Other fatigue (principal); G89.29 Other chronic pain; M79.10 Myalgia, unspecified site; M54.9 Dorsalgia, unspecified; Z88.8 Allergy status to other drugs, medicaments and biological substances; Z79.1 Long term (current) use of non-steroidal anti-inflammatories (NSAID); Z79.2 Long term (current) use of antibiotics; Z79.899 Other long term (current) drug therapy
CPT/HCPCS: A4606; A4663

== ENCOUNTER 2023-01-12 04:15 | Emergency (ER) | payer MEDICARE, BC ==
[~2023-01-12] VITALS: Ht 165.1 cm; Wt 69.4 kg
[2023-01-12] MEDS ORDERED: ACETAMINOPHEN ES 500 MG TABLET PO ONE (05:45)
[2023-01-12] MEDS ORDERED: ACETAMINOPHEN ES 500 MG TABLET ONE (05:59)
[2023-01-12] MEDS ORDERED: IBUPROFEN 600 MG TABLET PO ONE (06:15)
[2023-01-12] MEDS ORDERED: IBUPROFEN 600 MG TABLET ONE (06:25)
[2023-01-12 07:56] VITALS: BP 147/81; TEMP 97.7; O2SAT 95
== END 2023-01-12 07:56 | disposition home or self-care (01) ==
LOC: ER 04:18
DX: G89.29 Other chronic pain (principal); M54.2 Cervicalgia; M79.641 Pain in right hand; Z88.8 Allergy status to other drugs, medicaments and biological substances; Z59.00 Homelessness unspecified; Z79.1 Long term (current) use of non-steroidal anti-inflammatories (NSAID); Z79.2 Long term (current) use of antibiotics; Z79.899 Other long term (current) drug therapy
CPT/HCPCS: A4606; A4663; A9150

== ENCOUNTER 2023-01-13 21:38 | Emergency (ER) | payer MEDICARE, BC ==
[~2023-01-13] VITALS: Ht 162.6 cm; Wt 74.8 kg
[2023-01-13] MEDS ORDERED: LORAZEPAM 0.5 MG TABLET PO ONE (22:15)
[2023-01-13] MEDS ORDERED: LORAZEPAM 1 MG TABLET ONE (22:19)
[2023-01-13 22:59] VITALS: BP 135/70; TEMP 98.5; O2SAT 98
== END 2023-01-13 22:59 | disposition home or self-care (01) ==
LOC: ER 21:46
DX: F22 Delusional disorders (principal); F41.9 Anxiety disorder, unspecified; Z88.8 Allergy status to other drugs, medicaments and biological substances; Z59.00 Homelessness unspecified; Z79.1 Long term (current) use of non-steroidal anti-inflammatories (NSAID); Z79.2 Long term (current) use of antibiotics; Z79.899 Other long term (current) drug therapy
CPT/HCPCS: A4606; A4663